=== PATIENT | female | born 1980 ===

== ENCOUNTER 2016-10-24 10:25 | Emergency (ER) | payer OTHER ==
[2016-10-24 11:03] LABS: BASO # 0.1 K/uL (0.0-0.2); BASO % 0.7 % (0.0-2.0); EOS # 0.3 K/uL (0.0-0.7); EOS % 2.5 % (0.0-4.0); HEMATOCRIT 33.3 % (34.0-47.0); LYMPH # 1.9 K/uL (1.0-4.3); LYMPH % 18.5 % (20.0-40.0); MEAN CORPUSCULAR HEMOGLOBIN 31.1 pg (27.0-31.0); MEAN CORPUSCULAR HGB CONC 33.8 g/dL (33.0-37.0); MEAN PLATELET VOLUME 8.6 fL (7.2-11.7); MONO # 0.6 K/uL (0.0-0.8); MONO % 5.9 % (0.0-10.0); RED CELL DISTRIBUTION WIDTH 14.7 % (11.5-14.5); WHITE BLOOD COUNT 10.3 K/uL (4.8-10.8)
[2016-10-24 11:09] LABS: MEAN CELL VOLUME 91.9 fL (81.0-99.0)
[2016-10-24 11:12] LABS: RBC URINE < 1 /hpf (0-3); URINE BACTERIA OCC (<OCC); URINE BILIRUBIN NEGATIVE (NEGATIVE); URINE BLOOD NEGATIVE (NEGATIVE); URINE COLOR Straw (YELLOW); URINE GLUCOSE (UA) NORMAL (Normal); URINE KETONE NEGATIVE (NEGATIVE); URINE LEUKOCYTE ESTERASE 1+ Leu/uL (Negative); URINE PROTEIN NEGATIVE (NEGATIVE); URINE UROBILINOGEN NORMAL mg/dL (0.2-1.0); WBC URINE 2 /hpf (0-5)
[2016-10-24 11:15] LABS: CHLORIDE 100 mmol/L (98-107); POTASSIUM 4.2 mmol/L (3.6-5.2); SODIUM 133 mmol/L (132-148)
[2016-10-24 11:17] LABS: AST/SGOT 16 U/L (14-36); BILIRUBIN,TOTAL 0.5 mg/dL (0.2-1.3); CARBON DIOXIDE 25 mmol/L (22-30); GFR AFRICAN-AMERICAN > 60; INR 0.8; TOTAL PROTEIN 7.3 g/dL (6.3-8.3)
[2016-10-24 11:18] LABS: ALKALINE PHOSPHATASE 109 U/L (38-126); ALT/SGPT 16 U/L (9-52); BLOOD UREA NITROGEN 9 mg/dL (7-17); CALCIUM 8.8 mg/dl (8.6-10.4); GLUCOSE,RANDOM 81 mg/dL (65-105); MAGNESIUM 1.8 mg/dL (1.6-2.3); URIC ACID 5.9 mg/dL (2.2-7.5)
--- NOTE | 2016-10-24 11:30 | OBHP ---
Datetime: 10/24/2016 11:28 Admit Comment, IP Provider: pt was seen at bed side. feels ok, no hedache blury vision. pih work up neg bp nor plan dc home cont methyldopa preeclamptic s/s given f/iu on 10/31 Contraction Comments Provider: none Vital Signs Provider: Within Normal Limits Datetime: 10/24/2016 10:33 IP Adm Impression: No Active Labor IP Admit Plan: Observation/Evaluation Pelvic Type - PN: Adequate Extremities - PN: Normal Abdomen - PN: Normal Back - PN: Normal Breast - PN: Normal Lungs - PN: Normal Heart - PN: Normal Thyroid - PN: Normal Neurologic - PN: Normal HEENT - PN: Normal General - PN: Normal FHR - Baseline A Provider: 150 Comments, ACOG Physical Exam: patient appears in no acute distress BP reading now 133/[address] Fundal heigh 1 finger breadth bellow the umbillicus Gestation - Est Wks by US: 21.5 EGA AdmitDate IP: 21.5 IP Chief Complaint: Signs/Symptoms Gestational HTN NICHD Variability Prov Fetus A: Moderate 6-25bpm Genitourinary Exam: Normal DTRs - PN: Normal
--- NOTE | 2016-10-24 11:32 | OBDCSUM ---
Datetime: 10/24/2016 11:30 Discharged to, Provider: Home Follow up at, Provider: 10/31 Follow up in weeks, Provider: clinic Discharge Comment, Provider: dc home cont methyldopa preeclamptic s/s given f/iu on 10/31 Discharge Diagnosis Prov Other: 21 week ch htn
== END 2016-10-24 11:30 | disposition home or self-care (01) ==
LOC: C.EROB 10:25
DX: O13.2 Gestational [pregnancy-induced] hypertension without significant proteinuria, second trimester (principal); Z3A.21 21 weeks gestation of pregnancy

== ENCOUNTER 2016-11-28 09:59 | Inpatient (IN) | payer OTHER ==
[2016-11-28] MEDS ORDERED: Labetalol 25mg/5ml Syringe IVP STA (10:19)
[2016-11-28] MEDS ORDERED: Betamethasone Soluspan 30 mg/5mL Inj Susp IM ONE (11:00)
[2016-11-28 11:15] LABS: HEMATOCRIT 32.6 % (34.0-47.0); MEAN CELL VOLUME 93.9 fL (81.0-99.0); MEAN CORPUSCULAR HGB CONC 33.1 g/dL (33.0-37.0); MEAN PLATELET VOLUME 9.3 fL (7.2-11.7); RED CELL DISTRIBUTION WIDTH 13.8 % (11.5-14.5); WHITE BLOOD COUNT 11.4 K/uL (4.8-10.8)
[2016-11-28 11:23] LABS: RBC URINE < 1 /hpf (0-3); URINE BACTERIA OCC (<OCC); URINE BILIRUBIN NEGATIVE (NEGATIVE); URINE BLOOD NEGATIVE (NEGATIVE); URINE COLOR Yellow (YELLOW); URINE GLUCOSE (UA) NORMAL (Normal); URINE KETONE NEGATIVE (NEGATIVE); URINE LEUKOCYTE ESTERASE 2+ Leu/uL (Negative); URINE PROTEIN 3+ mg/dL (NEGATIVE); URINE UROBILINOGEN NORMAL mg/dL (0.2-1.0); WBC URINE 24 /hpf (0-5)
[2016-11-28 11:30] LABS: POTASSIUM 4.9 mmol/L (3.6-5.2)
[2016-11-28 11:32] LABS: ALB/GLOB RATIO 0.7 (1.0-2.1); BILIRUBIN,TOTAL 0.3 mg/dL (0.2-1.3); CALCIUM 8.5 mg/dl (8.6-10.4); TOTAL PROTEIN 5.9 g/dL (6.3-8.3)
[2016-11-28 11:57] LABS: INR 0.8
--- NOTE | 2016-11-28 12:22 | CP.PCM.CON ---
<Connor RAMIREZKath Selwyn - Last Filed: 11/28/16 12:26> History of Present Illness - History of Present Illness History of Present Illness: Patient is a 36 year old female at 26.5 weeks gestation, EDC 03/01/17, who presents to the L&D unit after being sent by clinic for evaluation of HTN and preeclamptic workup. Patient had BP of 200/105 in the clinic today. Patient has a history of gestational HTN. Patient states she had gestational HTN with her prior two pregnancies and that it resolved after delivery. Patient states that in her prior pregnancies she did not require medication for the HTN but that she has been on methyldopa 500mg TID since her OB-ED visit in 10/24/16. Per clinic documentation, patient has had elevated BP throughout the , with a BP reading of 150/100 on 08/08/16. Patient was also previously on chlorthalidone for HTN management. Patient denies complaints of headaches, change to vision, dizziness, weakness, nausea, vomiting, abdominal pain, shortness of breath. Patient admits to dysuria for two days. Patient also admits to leg swelling that began on Saturday, 11/26. Medicine team consulted for HTN. 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 PMHx: gestational HTN PSHx: appendectomy, cholecystectomy, partial left nephrectomy due to nephrolithiasis, section FamHx: denies history of HTN, dibetes, cancer SocialHx: denies drug, alcohol, tobacco use Review of Systems - Constitutional Constitutional: absent: Chills, Fever, Weakness - EENT Eyes: absent: Blurred Vision, Change in Vision Nose/Mouth/Throat: absent: Sore Throat - Cardiovascular Cardiovascular: absent: Chest Pain - Respiratory Respiratory: absent: Cough, Dyspnea - Gastrointestinal Gastrointestinal: absent: Abdominal Pain, Nausea, Vomiting - Genitourinary Genitourinary: Difficulty Urinating, Dysuria - Musculoskeletal Additional comments: leg swelling - Integumentary Integumentary: absent: Dry Skin, Rash - Neurological Neurological: absent: Confusion, Dizziness, Weakness - Hematologic/Lymphatic Hematologic: absent: Easy Bleeding, Easy Bruising Past Patient History - Past Medical History & Family History Past Medical History?: Yes - Past Social History Smoking Status: Never Smoked - RENAL Hx Chronic Kidney Disease: No - MUSCULOSKELETAL/RHEUMATOLOGICAL Hx Falls: No - GASTROINTESTINAL Hx Gastrointestinal Disorders: Yes Hx Gall Bladder Disease: Yes - GENITOURINARY/GYNECOLOGICAL Hx Genitourinary Disorders: Yes Other/Comment: Hx of C -section x2. Hx of cholecystectomy, appendectomy. H/O KIDNEY STONES - SURGICAL HISTORY Hx Surgeries: Yes Hx Appendectomy: Yes Hx Section: Yes (2007, 2014) Hx Cholecystectomy: Yes Other/Comment: EXC.ABDOMINAL WALL MASS - ANESTHESIA Hx Anesthesia: Yes Hx Anesthesia Reactions: No Hx Malignant Hyperthermia: No Meds Allergies/Adverse Reactions: Allergies Allergy/AdvReac Type Severity Reaction Status Date / Time No Known Allergies Allergy Verified 11/10/15 10:06 - Medications Medications: Current Medications Nifedipine (Procardia) 10 mg PO BID LETY Last Admin: 11/28/16 12:18 Dose: 10 mg Physical Exam - Constitutional Appears: Non-toxic, No Acute Distress - Head Exam Head Exam: ATRAUMATIC, NORMOCEPHALIC - Eye Exam Eye Exam: EOMI - ENT Exam ENT Exam: Mucous Membranes Moist - Respiratory Exam Respiratory Exam: Clear to Auscultation Bilateral, NORMAL BREATHING PATTERN. absent: Rales, Rhonchi, Wheezes - Cardiovascular Exam Cardiovascular Exam: +S1, +S2 - GI/Abdominal Exam GI & Abdominal Exam: Normal Bowel Sounds. absent: Tenderness Additional comments: gravid - Extremities Exam Extremities exam: Positive for: pedal edema (bilateral 1+ pitting edema to mid bosch). Negative for: tenderness - Neurological Exam Neurological exam: Alert, Oriented x3 - Psychiatric Exam Psychiatric exam: Normal Affect - Skin Skin Exam: Warm Results - Labs Result Diagrams: 11/28/16 10:48 11/28/16 10:48 Labs: Laboratory Results - last 24 hr 11/28/16 11/28/16 11/28/16 10:48 10:48 10:48 WBC 11.4 H RBC 3.47 L Hgb 10.8 L Hct 32.6 L MCV 93.9 D MCH 31.0 MCHC 33.1 RDW 13.8 Plt Count 203 MPV 9.3 PT 9.3 L INR 0.8 APTT 34 Fibrinogen 276 Sodium Potassium Chloride Carbon Dioxide Anion Gap BUN Creatinine Est GFR ( Amer) Est GFR (Non-Af Amer) Random Glucose Calcium Total Bilirubin AST ALT Alkaline Phosphatase Total Protein Albumin Globulin Albumin/Globulin Ratio Urine Color Yellow Urine Clarity Clear Urine pH 7.0 Ur Specific [place] 1.008 Urine Protein 3+ H Urine Glucose (UA) Normal Urine Ketones Negative Urine Blood Negative Urine Nitrate Negative Urine Bilirubin Negative Urine Urobilinogen Normal Ur Leukocyte Esterase 2+ H Urine WBC (Auto) 24 H Urine RBC (Auto) < 1 Ur Squamous Epith Cells 3 Urine Bacteria Occ H Blood Type 11/28/16 11/28/16 10:48 10:48 WBC RBC Hgb Hct MCV MCH MCHC RDW Plt Count MPV PT INR APTT Fibrinogen Sodium 132 Potassium 4.9 Chloride 105 Carbon Dioxide 19 L Anion Gap 13 BUN 22 H Creatinine 1.3 H Est GFR ( Amer) 55 Est GFR (Non-Af Amer) 46 Random Glucose 66 Calcium 8.5 L Total Bilirubin 0.3 AST 26 ALT 26 Alkaline Phosphatase 135 H D Total Protein 5.9 L Albumin 2.5 L D Globulin 3.4 Albumin/Globulin Ratio 0.7 L Urine Color Urine Clarity Urine pH Ur Specific [place] Urine Protein Urine Glucose (UA) Urine Ketones Urine Blood Urine Nitrate Urine Bilirubin Urine Urobilinogen Ur Leukocyte Esterase Urine WBC (Auto) Urine RBC (Auto) Ur Squamous Epith Cells Urine Bacteria Blood Type O NEGATIVE Assessment & Plan - Assessment and Plan (Free Text) Assessment: Gestational HTN r/o preeclampsia liver enzymes grossly normal, mild elevation alk phos 3+ protein in urine patient given hydralazine 10mg IVP x 2, celestone with reduction in BP from 193/ 105 down to 119/70, now back up to 144/92 Nifedipine 10mg BID ordered per OBGYN service Agree with nifedipine 10mg BID further pre-eclamptic workup per OBGYN team We will continue to follow patient's blood pressure and may consider adding on PO hydralazine if blood pressure begins to increase again, thank you for allowing us to participate in your patient's care <Rudy Georeg H - Last Filed: 11/28/16 16:31> Meds - Medications Medications: Current Medications Nifedipine (Procardia) 10 mg PO BID LETY Last Admin: 11/28/16 12:18 Dose: 10 mg Results - Labs Result Diagrams: 11/28/16 10:48 11/28/16 10:48 Labs: Laboratory Results - last 24 hr 11/28/16 12:37 POC Glucose (mg/dL) 99 Attending/Attestation - Attestation I have personally seen and examined this patient.: Yes I have fully participated in the care of the patient.: Yes I have reviewed all pertinent clinical information: Yes Notes (Text): 11/28/16 16:28 Medical attending: Patient was seen and examined by me, agrees the above note by medical technician assistant. Medicine has been consulate due to elevated blood pressure. When the patient first came in she had a systolic BP of 200. And before we came she already got doses of IV hydralazine and then started on Procardia 10 mg to be given twice a day. On exam the patient is not under any acute distress at all. She does of note have some lower extremity edema +1. By the time we saw her the systolic blood pressure was better 130 on the machine we discussed the potential of adding on additional blood pressure medication however she had just received the Procardia it seemed like it was doing okay Later in the day I called down to labor and delivery again and her systolic blood pressures were in the 110s so at this time continue to monitor the patient if need be we could always add on medication such as hydralazine by mouth Platelet count was okay, LFTs were okay. This being said, on the UA she does have a lot of protein +3 Thank you very much, Rudy George
--- NOTE | 2016-11-28 12:44 | OBADHP ---
Datetime: 11/28/2016 12:36 Admit Comment, IP Provider: at 26+weeks send from clinic for bp 200/105. pt is ch htn and takin g methyldopa.pt took her meds today. no hedache or blurry vision.,no ctxs, vb, lof,+fm. obhx 2 x c/s pmh ch htn all nkda psh c/s soch denies a/p at 26+weeks uncontrolled htn admit to l_d iv hydrazine 10 mg x 2 given pih work up betamethasone im 24 urine pr Medicine consult called for uncontroled htn ob sono for bpp cont payton and efm angel monitoring cont close observation Pelvic Type - PN: Adequate Extremities - PN: Normal Abdomen - PN: Normal Back - PN: Normal Breast - PN: Not Done Lungs - PN: Normal Heart - PN: Normal Thyroid - PN: Not Done Neurologic - PN: Normal HEENT - PN: Normal General - PN: Normal FHR - Baseline A Provider: 130 Contraction Comments Provider: none Comments, ACOG Physical Exam: gravid,non tender ext no edema,no calf ten chest cta bl cvs rrr s1s2 IP Hx Assessment: The History has been Reviewed and is Current Vital Signs Provider: Reviewed IP Chief Complaint: Signs/Symptoms Gestational HTN NICHD Variability Prov Fetus A: Moderate 6-25bpm NICHD Decel Fetus A IP Provider: None Genitourinary Exam: Normal DTRs - PN: Normal EGA AdmitDate IP: 26.5 IP Adm Impression: , intrauterine IP Admit Plan: Admit to unit Datetime: 10/24/2016 11:28 IP Chief Complaint Other: high bp Datetime: 10/24/2016 10:33 Gestation - Est Wks by US: 21.5
--- NOTE | 2016-11-28 14:47 | US ---
PROCEDURE: OB Pelvic Ultrasound HISTORY: 26 weeks/ch hypertension COMPARISON: None available. FINDINGS: UTERUS: Gestational sac: Single intrauterine fetus in variable presentation. Heart rate: 140 bpm. BPD: 6.0 cm corresponds to 24 weeks and 4 days of gestational age. HC: 22.9 cm corresponds to 25 weeks and 0 days of gestational age. AC: 19.85 cm corresponds to 24 weeks and 4 days of gestational age. FL: 4.89 cm corresponds to 26 weeks and 3 days of gestational age. age (Ultrasound estimated): 25 weeks and 1 day Sanjana-gestational hemorrhage: None. Date of delivery (Ultrasound estimated) : 03/12/2017 Placenta is anterior. Amniotic fluid is adequate. On this limited examination, note is made of prominence of bilateral renal collecting system. CERVIX: Long and closed. No cervical abnormality seen. FREE FLUID: None. OTHER FINDINGS: None. IMPRESSION: Single live intrauterine fetus in variable presentation and mean gestational age of 25 weeks and 1 day. Placenta is at anterior and amniotic fluid is adequate. Of note is prominent bilateral renal collecting systems. Clinical follow-up is advised and level 2 ultrasound is recommended for further evaluation. Estimated date of delivery by ultrasound is 03/12/2027.
[2016-11-29 06:44] LABS: HEMATOCRIT 32.1 % (34.0-47.0); MEAN CELL VOLUME 94.5 fL (81.0-99.0); MEAN CORPUSCULAR HGB CONC 32.8 g/dL (33.0-37.0); MEAN PLATELET VOLUME 9.4 fL (7.2-11.7); RED CELL DISTRIBUTION WIDTH 13.7 % (11.5-14.5); WHITE BLOOD COUNT 13.4 K/uL (4.8-10.8)
[2016-11-29 06:52] LABS: POTASSIUM 5.2 mmol/L (3.6-5.2)
[2016-11-29 06:53] LABS: ALB/GLOB RATIO 0.9 (1.0-2.1); TOTAL PROTEIN 5.3 g/dL (6.3-8.3)
[2016-11-29 06:54] LABS: BILIRUBIN,DIRECT 0.3 mg/dL (0.0-0.4); BILIRUBIN,TOTAL 0.4 mg/dL (0.2-1.3); INR 0.9; URIC ACID 8.8 mg/dL (2.2-7.5)
[2016-11-29 06:55] LABS: CALCIUM 8.2 mg/dl (8.6-10.4)
--- NOTE | 2016-11-29 09:48 | CP.PCM.PN ---
<Kath Ryan DO - Last Filed: 11/29/16 09:45> Subjective - Date & Time of Evaluation Date of Evaluation: 11/29/16 Time of Evaluation: 07:35 - Subjective Subjective: PGY1 Progress note for Dr. George Patient seen and examined. Patient states she feels well, denies headache, dizziness, nausea. Patient complains of increased leg swelling. Objective - Medications Medications: Current Medications Nifedipine (Procardia) 10 mg PO BID [facility] Last Admin: 11/29/16 09:40 Dose: 10 mg - Labs Labs: 11/29/16 06:23 11/29/16 06:23 PT 9.5 SECONDS (9.7-12.2) L 11/29/16 06:23 INR 0.9 11/29/16 06:23 APTT 25 SECONDS (21-34) D 11/29/16 06:23 - Constitutional Appears: Non-toxic, No Acute Distress - Head Exam Head Exam: ATRAUMATIC, NORMOCEPHALIC - Eye Exam Eye Exam: EOMI - ENT Exam ENT Exam: Mucous Membranes Moist - Respiratory Exam Respiratory Exam: Clear to Ausculation Bilateral, NORMAL BREATHING PATTERN - Cardiovascular Exam Cardiovascular Exam: +S1, +S2 - GI/Abdominal Exam GI & Abdominal Exam: Soft Additional comments: gravid - Extremities Exam Extremities Exam: Pedal Edema (bilateral 1+ pitting edema to level of the knee) . absent: Calf Tenderness - Neurological Exam Neurological Exam: Alert, Awake - Psychiatric Exam Psychiatric exam: Normal Affect - Skin Skin Exam: Dry, Warm Assessment and Plan - Assessment and Plan (Free Text) Assessment: Gestational HTN Continue nifedipine 10mg PO BID continue pre-eclamptic workup per OBGYN team blood pressure appears well-controlled on nifedipine, AM BP reading 124/76 patient to follow up in the clinic with Dr. Richey medicine team will sign off, please re-consult as necessary <Rudy George - Last Filed: 11/29/16 12:57> Objective - Medications Medications: Current Medications Nifedipine (Procardia) 10 mg PO BID [facility] Last Admin: 11/29/16 09:40 Dose: 10 mg - Labs Labs: 11/29/16 06:23 11/29/16 06:23 PT 9.5 SECONDS (9.7-12.2) L 11/29/16 06:23 INR 0.9 11/29/16 06:23 APTT 25 SECONDS (21-34) D 11/29/16 06:23 Attending/Attestation - Attestation I have personally seen and examined this patient.: Yes I have fully participated in the care of the patient.: Yes I have reviewed all pertinent clinical information, including history, physical exam and plan: Yes Notes (Text): Medical attending: Patient was seen and examined by me, agrees the above note by medical records director. We reviewed the patient's blood pressure readings today and they look okay she is currently on Procardia. Twice a day. She says that she's not in any pain right now, she denied having headaches, denied having vision difficulties. Per review of the blood work her LFTs are not elevated, her platelet count stable and she is not anemic. On exam as documented above the resident note she does have some lower extremity edema. It's nonpitting edema Set this continue with the Procardia twice a day Thank you very much, Rudy George
[2016-11-29] MEDS ORDERED: Betamethasone Soluspan 30 mg/5mL Inj Susp IM ONE (11:15)
--- NOTE | 2016-11-29 15:53 | OBPN ---
Datetime: 11/29/2016 12:38 IP Progress Plan Other: Anticipate discharge home 11/29/16 IP Progress Impression: Gest. HTN/PreEclampsia/Eclampsia IP Progress Plan: Continue present management Contraction Comments Provider: none FHR - Baseline A Provider: 155 Gestation - Est Wks by US: 26w 6d IP Progress Note Comment: Patient received in bed, LDR#1 - talking on the phone; in NAD. Remebers wr iter from delivery 2014. (+) AFM; denies headaches, BV, epigastric or RUQ pain Lungs: CTA cari Cardiac: RRR, normal S1, S2 Abdomen: Obese. Gravid. Nontender in all quadrants. Healed Pfannenstiel scar Labs from this morning: noted for mild hyponatremia, 128; uric acid 8.2. Hgb 10.5; plt 188. U/A noted for 2+ leuk esterase, WBC 24; protein 3+ Extremities: trace bilateral lower extremity edema DTR: 2(+) Assessment: HD#1 36 y.o. P2, 26w 5d, uncontrolled chronic HTN, with proteinuria; now on procardia 10 mg p.o. BID with good response. 24 hour urine collection in progress. Patient also S/P celestone x 2 doses (this explains mild increase in WBC noted today). Patient has no other stigmata of superimpo sed pre-eclampsia. Patient is a previous C/S x 2; for elective repeat at 38-39 weeks, ideally. Patie nt desires permanent sterilization. Patient has beeen seen by General Medicine: note from today with assessment and recommendation reviewed and appreciated. FHR tracing appropriate for gestational age. Patient is clinically stable. Plan: 1) Complete 24 hour urine colleciton 2) Possible discharge home today Addendum: 1543 hours 24 hour urine collection completed BPs remain wnl. FHR tracing noted as per 1510 hours: continual monitoring noted - no recurrence Assessment: HD#2 36 yo P2, 26w 6d, prev C/S, chr HTN admitted for BP control - now on procardia wi th good response. U/A noted. Renal ultrasound from 08/03 and 08/31 noted for right renal calculus. In l ight of this, leuk esterase on admission 2+ with elevated WBC - will treat. Also, anemic; will start supplementation. Patient has been advised of all and agrees. Patient is clinically stable. Plan: 1) discharge home 2) Procardia 10 mg po BID 3) Keflex 500 mg p.o. TID x 7 days 4) Ziyad-Sequels (100-150) 1 tab po QD 5) Continue vitamins 1 tab po QD 6) See Dr. Richey, [facility] 12/05/16 7) Reviewed S/S pre-eclampsia 8) Keep ultrasound appointment, 12/11/16 Vital Signs Provider: Reviewed; Within Normal Limits Vital Signs Provider Details: Since accpeting patient: BP range 111-134/69-76 Dilatation, Provider: deferred Datetime: 11/28/2016 12:36 NICHD Variability Prov Fetus A: Moderate 6-25bpm NICHD Decel Fetus A IP Provider: None
--- NOTE | 2016-11-29 15:55 | OBDCSUM ---
Datetime: 11/29/2016 15:39 Discharged to, Provider: Home Follow up at, Provider: [facility] Disch Instr Activity: Normal activity; May be up to bathroom; May be up for meals; May Shower Disch Instr Diet: Restricted, specify Discharge Diet restrict Prov: Low sodium Follow up in weeks, Provider: esther 12/05/16 Disch Referrals: None Discharge Diagnosis Prov Other: - undelivered Advanced maternal age Chronic hypertension Proteinuria Anemia UTI
== END 2016-11-29 17:00 | disposition home or self-care (01) | DRG 886 ==
LOC: C.EROB 09:59 → C.4D 12:30
PROVIDERS: ADMIT Obstetrics & Gynecology; ATTEND Obstetrics & Gynecology
DX: O14.92 Unspecified pre-eclampsia, second trimester (principal); E87.1 Hypo-osmolality and hyponatremia; O23.42 Unspecified infection of urinary tract in pregnancy, second trimester; O99.012 Anemia complicating pregnancy, second trimester; O09.522 Supervision of elderly multigravida, second trimester; Z90.49 Acquired absence of other specified parts of digestive tract; Z87.442 Personal history of urinary calculi; Z3A.26 26 weeks gestation of pregnancy

== ENCOUNTER 2016-12-02 03:13 | Observation (INO) | payer OTHER ==
[2016-12-02 03:29] VITALS: BMI 32.4
[2016-12-02] MEDS ORDERED: Lactated Ringer's 1,000 ML IV SCH (03:30)
[2016-12-02] MEDS ORDERED: HYDROmorphone 1 mg/ml ISec IVP ONE (03:45)
[2016-12-02 04:11] LABS: HEMATOCRIT 37.6 % (34.0-47.0); MEAN CORPUSCULAR HEMOGLOBIN 31.1 pg (27.0-31.0); MEAN CORPUSCULAR HGB CONC 32.7 g/dL (33.0-37.0); MEAN PLATELET VOLUME 8.8 fL (7.2-11.7); RED CELL DISTRIBUTION WIDTH 13.9 % (11.5-14.5); WHITE BLOOD COUNT 15.1 K/uL (4.8-10.8)
[2016-12-02 04:21] LABS: POTASSIUM 4.4 mmol/L (3.6-5.2)
[2016-12-02 04:23] LABS: RBC URINE 2 /hpf (0-3); URINE BILIRUBIN NEGATIVE (NEGATIVE); URINE BLOOD NEGATIVE (NEGATIVE); URINE COLOR Yellow (YELLOW); URINE GLUCOSE (UA) NORMAL (Normal); URINE KETONE NEGATIVE (NEGATIVE); URINE LEUKOCYTE ESTERASE 2+ Leu/uL (Negative); URINE PROTEIN 3+ mg/dL (NEGATIVE); URINE UROBILINOGEN NORMAL mg/dL (0.2-1.0); WBC URINE 47 /hpf (0-5)
[2016-12-02 04:23] LABS: ALB/GLOB RATIO 0.8 (1.0-2.1); BILIRUBIN,TOTAL 0.6 mg/dL (0.2-1.3); TOTAL PROTEIN 6.1 g/dL (6.3-8.3)
[2016-12-02 04:24] LABS: CALCIUM 8.2 mg/dl (8.6-10.4)
[2016-12-02 04:26] LABS: INR 0.8
--- NOTE | 2016-12-02 10:22 | US ---
PROCEDURE: Ultrasound of the Kidneys HISTORY: cari flank pain; h/o renal calculi; vomiting COMPARISON: 09/10/2016. TECHNIQUE: Sonogram of the kidneys. FINDINGS: RIGHT KIDNEY: Measures: 14.2 cm. Enlarged. Again seen are echogenic medullary pyramids. There are nonobstructing stones in the interpolar region, the largest measures 1.1 cm. No solid mass lesion or hydronephrosis visualized. There is a 1.3 cm simple cyst in the lower pole. LEFT KIDNEY: Measures: 6.2 cm. HALINA small in size. Again seen are echogenic medullary pyramids. There are multiple nonobstructing stones, the largest in the upper pole measures 6 mm. No solid mass lesion or hydronephrosis visualized. OTHER FINDINGS: None. IMPRESSION: 1. Bilateral nonobstructing renal stones, the largest in the interpolar region of the right kidney measures 1.1 cm. 2. Nephrocalcinosis. 3. Atrophic left kidney and compensatory hypertrophy of the right kidney.
--- NOTE | 2016-12-02 11:26 | OBHP ---
Datetime: 12/02/2016 02:40 IP Adm Impression: , intrauterine IP Chief Complaint Other: vomiting, bilateral flank pain IP Adm Impression Other: Chr HTN; prev C/S x 2; h/o renal calculi IP Admit Plan: Observation/Evaluation IP Admit Plan Other: Transfer to [facility] Admit Comment, IP Provider: 36 y.o. , LMP 05/25/16, ANABELLA 03/01/17, EGA 27w 2d, sudden onset cari ateral low back/flank pain 0040 hours, pain scale 10/10. Pain described as stabbing/ crushing and sim ilar to that she experienced in 2016 when diagnosed and treated for kidney stones. On way to hospital , vomited x 1 and again at approx 0210 hours on Maternity Floor. (+) FM; denies LOF, VB, Ctx. Prenat al care: [facility], Chr HTN; AMA; previous C/S x 2. 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 Denies h/o STIs PMH: chr HTN PSH: C/S x 2; age 13, appendectomy; age 14, cholecystectomy NKDA Meds: PNV, Procardia 10 mg po BID; Keflex 500 mg po TID, iron - QD Soc Hx: denies tobacco, illicit drug or EtOH use. x 3 yrs, together 6 yrs. Fam Hx: Mother alive 73 y.o. Father alive 77 - both, no med issues. No known fam h/o cancer P.E.: as above. WD in pain. Awake, alert, oriented to time, person and place. Pleasant and coopera tive Assessment: 36 yo P2, 27w 2d, h/o renal calculi, with right CVA tenderness; currently on p.o. anti biotics for early UTI in the setting of prevously diagnosed small, non obstructing right renal calcul us, 07/2016. Episode of vomiting - noted; may be due to p.o. antibiotics. Epigastric pain - most likel y due to use of accessory muscles with vomiting. - will evaluate for superimposed pre-eclampsia. S/P admission 11/28 for BP control and evaluation of super-imposed pre-eclampsia. FHR tracing appropriate for gestational age. Patient is clinically stable. Plan: 1) Observation status 2) IVFs 3) NPO 4) Zofran 5) Reglan 6) Dilaudid 7) Renal ultrasound in am 8) EFM q 2 hours 9) Admission labs, including pre-eclamptic labs and lipase Addendum: 1041 hours (history and discussion of care facilitated by Cory Adamson, who serves as tra nslator) Patient received at approximately 0945 hours, just returned from ultrasound: reclining in bed, in good spirits. Denies nausea, vomiting, headaches, blurred vission. Reports improvement in low back an d epigastric pain. Describes burning sensation in retrosternal area. Not very hungry. (+) FM; denies LOF, VB, Ctx. Patient disclosed that she is being followed by both a clinical partner and urologist - she is unsure as to why she is seeing the former; is aware of renal calculi. VS: noted - at this time elevated BP most likely related to anxiety and pain. NB: BP had responded to dose of procardia at 0800 hours. Lungs: CTA bilaterally Back: bilateral CVA tenderness, right > left - improved Abdomen: Gravid soft, (+) epigastric tenderness - with improvement Extremities: no clubbing, cyanosis or edema DTRs: 2+ bilaterally, lower extremities, brisk Labs: on presentation, significant for LDH 3494 (11/29, 425); AST/ALT 645/508 (11/29, ); and ur ine protein 3+ (same 11/28/16). Uric acid 9.0. BUN/Cr 30/1.3. H/H 12.3/37.6 (11/29 10.5/32.1). Coagula tion profile wnl and stable. 24 hour urine collection 11/29/16 total protein 1936 mg, total volume 110 0 mL. Renal ultrasound today: Right: multiple, non obstructing stones, largest 1.1cm. Left: multiple non obstructing stones, largest 6 mm. Atrophic left kidney and compensatory hypertrophy of right kidney Assessment: 36 yo P2, 27w 2d, previous C/S x 2 for elective repeat (patient desires permanent ster ilization). Chronic HTN, S/P admission 11/28-11/29 for BP control; discharged home on procardia 10 mg po BID. Evaluation for super-imposed pre-eclampsia initiated - results as above were not known in ful l detail at time of discharge. Patient was also sent home on p.o. antibiotics for empiric treatment o f bacteriuria in setting of known renal calculi (07/2016). Patient received course of celestone. Patient now with elevated LFTs, and proteinuria, and labile BP - after presenting with bilateral f lank and epigastric pain. Case discussed with M, Dr. Prabhakar who recommends and accepts the transfer of patient to [facility] for further management. This was discussed with patient: s he was/is understandably anxious (resulting in the increase of BP just noted). Patient's questions an d concerns were addressed and answered to the best of my ability. It was also explained to patient, p ossiblility of stent placement may be a part of her continuing treatment. Patient expressed an unders tanding and agrees to the transfer. Plan: 1) Transfer to [facility] 2) Procardia 10 mg p.o. x 1 dose STAT Pelvic Type - PN: Not Done Extremities - PN: Normal Abdomen - PN: Abnormal Back - PN: Abnormal Breast - PN: Not Done Lungs - PN: Normal Thyroid - PN: Not Done Neurologic - PN: Normal HEENT - PN: Normal General - PN: Normal FHR - Baseline A Provider: 155 Contraction Comments Provider: none Comments, ACOG Physical Exam: Skin: warm, dry, pale Back: bilateral CVA tenderness, right >> left Abdomen: Soft. Non distended. Healed RUQ, RLQ, epigastric, and laparoscopic scars. (+) epigastric pain, just superior to fundus of uterus. All other systems reviewed - as per HPI Gestation - Est Wks by US: 27w 2d EGA AdmitDate IP: 27.2 Vital Signs Provider: Reviewed Vital Signs Provider Details: Most likely related to pain. Low normal pulse - as noted on previous a dmission IP Chief Complaint: Other NICHD Decel Fetus A IP Provider: None Genitourinary Exam: Not Done DTRs - PN: Not Done Datetime: 11/29/2016 12:38 Dilatation, Provider: deferred
--- NOTE | 2016-12-02 11:33 | OBDCSUM ---
Datetime: 12/02/2016 11:26 Discharged to, Provider: Other Follow up at, Provider: to be determined Disch Instr Activity: Normal activity Disch Instr Diet: Restricted, specify Discharge Diet restrict Prov: Low sodium Discharge Time: 12/02/2016 11:27 Follow up in weeks, Provider: to be determined Disch Referrals: None Contraception discussed, Prov: Yes Discharge Comment, Provider: Patient transferred to [facility] via ambulance Discharge Diagnosis Prov Other: undelivered Chronic hypertension Elevated liver enzymes Proteinuria Previous section Advanced maternal age Desires permanent sterilization Bilateral renal calculi
== END 2016-12-02 12:30 | disposition short-term general hospital (02) ==
LOC: C.EROB 03:13 → C.4D 03:29
PROVIDERS: ADMIT Obstetrics & Gynecology; ATTEND Obstetrics & Gynecology
DX: O11.2 Pre-existing hypertension with pre-eclampsia, second trimester (principal); O09.522 Supervision of elderly multigravida, second trimester; O23.42 Unspecified infection of urinary tract in pregnancy, second trimester; O26.832 Pregnancy related renal disease, second trimester; N20.0 Calculus of kidney; Z87.442 Personal history of urinary calculi; O34.219 Maternal care for unspecified type scar from previous cesarean delivery; Z3A.27 27 weeks gestation of pregnancy
CPT/HCPCS: 76770; 80053; 81001; 83615; 83690; 84550; 85027; 85384; 85610; 85730; 86850; 86900; 99284; G0378; J1170; J2405; J2765; J7120

== ENCOUNTER 2016-12-14 05:29 | Inpatient (IN) | payer OTHER ==
--- NOTE | 2016-12-14 06:14 | C.PDOC ---
History Of Present Illness 36 yo female c/o wound opening. Pt notes that she woke up this morning feeling gassy causing her to vomit. The vomiting caused her incision to open. Pt notes there was bleeding and odor from the area. States she was discharged from [facility] 12/07/16 and followed up with the OB clinic yesterday. Pt was given abx yesterday because the wound was red. Denies current nausea. No abdominal pain. No chest pain. Time Seen by Provider: 12/14/16 05:53 Chief Complaint (Nursing): Wound Check History Per: Patient, Family, Certified Control Systems Technician History/Exam Limitations: no limitations Onset/Duration Of Symptoms: Mins Past Medical History Reviewed: Historical Data, Nursing Documentation, Vital Signs Vital Signs: Last Vital Signs Temp 98.6 F 12/14/16 05:43 Pulse 90 12/14/16 05:43 Resp 14 12/14/16 05:43 BP 104/99 H 12/14/16 05:43 Pulse Ox 98 12/14/16 06:40 - Medical History PMH: Gall Bladder Disease, Kidney Stones Surgical History: Appendectomy, Cholecystectomy - [facility] Procedures EXCISION OF ABDOMINAL WALL, OPEN APPROACH (11/10/15) EXCISION OF LEFT KIDNEY, PERCUTANEOUS ENDOSCOPIC APPROACH (04/16/16) LOW CERVICAL (10/29/14) OTH LYSIS-PERITONEAL ADHES (10/29/14) REPAIR ABDOMINAL WALL, OPEN APPROACH (11/10/15) Family History: States: Unknown Family Hx - Social History Hx Tobacco Use: No Hx Alcohol Use: No Hx Substance Use: No - Immunization History Hx Tetanus Toxoid Vaccination: Yes Hx Influenza Vaccination: Yes Hx Pneumococcal Vaccination: No Review Of Systems Constitutional: Negative for: Fever, Chills Gastrointestinal: Positive for: Vomiting. Negative for: Diarrhea Genitourinary: Negative for: Vaginal Discharge Musculoskeletal: Negative for: Back Pain Physical Exam - Physical Exam Appears: Well, Non-toxic, No Acute Distress Skin: Warm, Dry, Other (2 cm open wound on left side of incision with swelling and mild erythema; no active discharge or bleeding) Head: Atraumatic, Normacephalic Eye(s): bilateral: Normal Inspection, EOMI Nose: Normal Oral Mucosa: Moist Throat: Normal Neck: Normal, Normal ROM, Supple Chest: Symmetrical Cardiovascular: Rhythm Regular Respiratory: Normal Breath Sounds Gastrointestinal/Abdominal: Soft, Tenderness (mild tenderness over the incision ), Other (multiple healed scars) Back: Normal Inspection Extremity: Normal ROM Neurological/Psych: Oriented x3, Normal Speech ED Course And Treatment O2 Sat by Pulse Oximetry: 98 (room air) Progress Note: Case was discussed and pt evaluated by Dr Naik, instructs change in Flagyl and Augmentin. Upon re-evalaution, pt notes she has had a fever for 3 days- tmax 103 yesterday. Also notes left sided lower back pain. Worse with movement. No trauma. No incontinence. Labs ordered. Case endorsed to REED Carroll upon labs and re-evaluation. Disposition - Disposition Referrals: [facility] [Outside] Disposition: HOME/ ROUTINE Disposition Time: 06:52 Condition: STABLE Additional Instructions: Stop the Bactrim. Start the new antibiotics. Follow up with OBGYN clinic in 2-3 days. Return to ER if symptoms persist or worsen including fever or abdominal pain. Detener el Bactrim. Comience los nuevos antibiticos. Seguimiento con OBGYN cl donnell en 2-3 huynh. Regrese a ER si los sntomas persisten o empeoran incluyendo fiebre o dolor abdominal. Prescriptions: Amoxicillin/Clavulanate [Augmentin 875 MG-125 MG] 1 tab PO BID #14 tab Metronidazole [Flagyl] 500 mg PO BID #14 tab Instructions: Acute Wound Care (ED) Print Language: ENGLISH - Clinical Impression Clinical Impression: Wound infection following section, , Vomiting, Fever - Scribe Statement The provider has reviewed the documentation as recorded by the Scribjuan Sandhu All medical record entries made by the Ernaibjuan were at my direction and personally dictated by me. I have reviewed the chart and agree that the record accurately reflects my personal performance of the history, physical exam, medical decision making, and the department course for this patient. I have also personally directed, reviewed, and agree with the discharge instructions and disposition.
[2016-12-14] MEDS ORDERED: Amoxicillin-Clav 875-125 mg Tab PO STA (06:27)
[2016-12-14] MEDS ORDERED: Amoxicillin-Clav 875-125 mg Tab PO ONE (06:32)
[2016-12-14] MEDS ORDERED: Sodium Chloride 0.9% 1,000 ML IV ONE ×3 (06:47→10:36)
[2016-12-14] MEDS ORDERED: metroNIDAZOLE IV 500 mg/100 ml 100 ML IV SCH (07:00)
[2016-12-14 07:07] LABS: BASO # 0.1 K/uL (0.0-0.2); BASO % 0.2 % (0.0-2.0); EOS # 0.1 K/uL (0.0-0.7); EOS % 0.4 % (0.0-4.0); HEMOGLOBIN 7.3 g/dL (11.0-16.0); LYMPH % 4.8 % (20.0-40.0); MEAN CELL VOLUME 91.4 fL (81.0-99.0); MEAN CORPUSCULAR HEMOGLOBIN 30.7 pg (27.0-31.0); MEAN CORPUSCULAR HGB CONC 33.6 g/dL (33.0-37.0); MEAN PLATELET VOLUME 6.7 fL (7.2-11.7); MONO # 0.9 K/uL (0.0-0.8); MONO % 4.4 % (0.0-10.0); NEUT # 19.1 K/uL (1.8-7.0); NEUT % 90.2 % (50.0-75.0); PLATELET COUNT 276 K/uL (130-400); RBC 2.37 Mil/uL (3.80-5.20); RED CELL DISTRIBUTION WIDTH 13.8 % (11.5-14.5); WHITE BLOOD COUNT 21.2 K/uL (4.8-10.8)
[2016-12-14] MEDS ORDERED: Sodium Chloride 0.9% 1,000 ML ONE (07:17)
[2016-12-14 07:27] LABS: ALBUMIN 2.3 g/dL (3.5-5.0)
[2016-12-14 07:38] LABS: SQUAMOUS EPITHIAL 1 /hpf (0-5); URINE BACTERIA RARE (<OCC); URINE BILIRUBIN NEGATIVE (NEGATIVE); URINE BLOOD 2+ (NEGATIVE); URINE CLARITY Hazy (Clear); URINE COLOR Yellow (YELLOW); URINE GLUCOSE (UA) NORMAL (Normal); URINE LEUKOCYTE ESTERASE 2+ Leu/uL (Negative); URINE NITRATE NEGATIVE (NEGATIVE); URINE PROTEIN 2+ mg/dL (NEGATIVE)
[2016-12-14 07:42] LABS: ALB/GLOB RATIO 0.7 (1.0-2.1)
[2016-12-14 07:50] LABS: BANDS 7 % (0-2); EOSINOPHIL 2 % (0-4); LYMPHOCYTE 2 % (20-40); MONOCYTE 4 % (0-10); NEUTROPHIL 85 % (50-75); PLATELET ESTIMATE NORMAL (NORMAL); TOTAL CELLS COUNTED 100
[2016-12-14] MEDS ORDERED: Iohexol 240 (50 ml) PO ONE (08:12)
[2016-12-14] MEDS ORDERED: Piperacillin/Tazobact 3.375 gm 100 ML IV STA (08:13)
[2016-12-14] MEDS ORDERED: Piperacillin/Tazobact 3.375 gm 100 ML IVPB ONE (08:30)
[2016-12-14] MEDS ORDERED: Iohexol 240 (50 ml) ONE (08:30)
[2016-12-14 09:24] LABS: VENOUS BLOOD GAS BASE EXCESS -5.6 mmol/L (0.0-2.0); VENOUS BLOOD GAS PCO2 30 mmHg (40-60); VENOUS BLOOD GAS PO2 50 mm/Hg (30-55); VENOUS BLOOD PH 7.39 (7.32-7.43)
--- NOTE | 2016-12-14 11:40 | CT ---
PROCEDURE: CT Abdomen and Pelvis without intravenous contrast HISTORY: abd pain, fever, leukocytosis. Status post . COMPARISON: 11/10/2015 TECHNIQUE: Without contrast.. Contrast Dose: 0 Radiation dose: Total exam DLP = 765.89 mGy-cm. This CT exam was performed using one or more of the following dose reduction techniques: Automated exposure control, adjustment of the mA and/or kV according to patient size, and/or use of iterative reconstruction technique. FINDINGS: LOWER THORAX: Trace bilateral pleural effusion. Minimal linear scar/ atelectasis left lower lobe. LIVER: Mild hepatomegaly. The liver measures approximately 20 cm craniocaudal. No mass. No biliary dilatation. Smooth contour. GALLBLADDER AND BILE DUCTS: Status post cholecystectomy. PANCREAS: Unremarkable. No gross lesion or ductal dilatation. SPLEEN: Unremarkable. ADRENALS: Unremarkable. No mass. KIDNEYS AND URETERS: Markedly atrophic left kidney. This represents interval change from the prior examination. Small nonobstructing left renal calculi. Multiple right renal calculi, nonobstructing. Largest calculus measures approximately 11 mm although this may represent several smaller calculi. No hydronephrosis. No renal mass. No hydroureter or ureteral calculus appreciated. VASCULATURE: Unremarkable. No aortic aneurysm. BOWEL: Mild retained feces. No bowel obstruction. APPENDIX: Not positively identified. No secondary findings to suggest acute appendicitis. PERITONEUM: No ascites. There is a collection of low attenuation material as well as gas and a small amount of high attenuation material, within the rectus sheath. Evaluation is somewhat limited by the absence of intravenous contrast administration. This collection is curvilinear and difficult to measure but measures approximately 14.1 by 11.6 by 1.8 cm. Possible abscess versus postoperative hematoma. Please correlate for concern regarding an infectious collection. Very small collections are seen within the lower anterior abdominal wall consistent with surgical incision. There is a very small amount of gas seen within the few of these collections, nonspecific. Again, concerning for an infectious process. LYMPH NODES: Unremarkable. No enlarged lymph nodes. BLADDER: Unremarkable. REPRODUCTIVE: Somewhat globular uterus consistent with recent status. BONES: No acute fracture. OTHER FINDINGS: None. IMPRESSION: Curvilinear collection within the rectus sheath containing both low attenuation material and gas as well as a small amount of high attenuation material. Possible postoperative collection/ hematoma versus infected collection. Evaluation limited by the absence of intravenous contrast. Evidence of lower anterior abdominal surgical incision with multiple very small collections, several of which contain a small amount of gas. Again, the possibility of an infectious process is considered. Mild hepatomegaly. Multiple bilateral nonobstructing renal calculi. Severe left renal atrophy.
--- NOTE | 2016-12-14 13:20 | CP.PCM.HP ---
History of Present Illness - History of Present Illness History of Present Illness: 36 yr s/p c/s 12/02/16 her fcame with c/o vomiting last night and incision open up. pt states she had a fever last night.no fever now, no pain or hedache or blurry vision. pt had a c/s for severe preeclampsia and admitted in icu post delivery.pt has been following with dr jacobo in [facility] who started her on bactrium on saturday. obhx 3 x c/s(26 weeks loss) pmh htn,renal dieseaes med atenolol, labetolol psh c/s, cholecystectomy soch de and incsion erythematous, redness left side 2 cm opened and serosanguis fluid coming, fasia intact. abd soft,mild tenderness, soft ext no edema,no calf ten Ct Scan curvilenear collection near rectus sheath between low attentuation material possible hematoma/collection. severe renal atrophy Present on Admission - Present on Admission Any Indicators Present on Admission: No History of DVT/PE: No History of Uncontrolled Diabetes: No Urinary Catheter: No Decubitus Ulcer Present: No Review of Systems - Respiratory Respiratory: As Per HPI Past Patient History - Infectious Disease Hx of Infectious Diseases: None - Past Medical History & Family History Past Medical History?: Yes - Past Social History Smoking Status: Never Smoked - RENAL Hx Kidney Stones: Yes - MUSCULOSKELETAL/RHEUMATOLOGICAL Hx Falls: No - GASTROINTESTINAL Hx Gall Bladder Disease: Yes - GENITOURINARY/GYNECOLOGICAL Hx Genitourinary Disorders: Yes Other/Comment: Hx of C -section x2. Hx of cholecystectomy, appendectomy. H/O KIDNEY STONES - PSYCHIATRIC Hx Substance Use: No - SURGICAL HISTORY Hx Appendectomy: Yes Hx Cholecystectomy: Yes - ANESTHESIA Hx Anesthesia: Yes Hx Anesthesia Reactions: No Hx Malignant Hyperthermia: No Meds Home Medications: Home Medication List Medication Instructions Recorded Confirmed Type Amoxicillin/Clavulanate [Augmentin 1 tab PO BID #14 tab 12/14/16 Rx 875 MG-125 MG] Metronidazole [Flagyl] 500 mg PO BID #14 tab 12/14/16 Rx Allergies/Adverse Reactions: Allergies Allergy/AdvReac Type Severity Reaction Status Date / Time No Known Allergies Allergy Verified 12/14/16 05:48 Results - Vital Signs Recent Vital Signs: Last Vital Signs Temp 98.9 F 12/14/16 13:00 Pulse 77 12/14/16 13:00 Resp 18 12/14/16 13:00 BP 105/66 12/14/16 13:00 Pulse Ox 98 12/14/16 13:00 - Labs Result Diagrams: 12/14/16 07:04 12/14/16 07:04 Assessment & Plan - Assessment and Plan (Free Text) Assessment: 36 yr s/p c/s with post wound infection 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
[2016-12-14] MEDS ORDERED: Oxycodone/Acetaminophen 5/325 mg Tab PO PRN ×2 (13:28)
[2016-12-14] MEDS: Piperacill/Tazo 3.375gm in Dex 3.375 GM/50 ML BAG IVPB SCH ×2 (14:49→19:45)
--- NOTE | 2016-12-14 16:28 | CP.PCM.CON ---
History of Present Illness - History of Present Illness History of Present Illness: History Of Present Illness 36 yo female c/o wound opening. Pt notes that she woke up this morning feeling gassy causing her to vomit. The vomiting caused her incision to open. Pt notes there was bleeding and odor from the area. States she was discharged from [facility] 12/07/16 and followed up with the OB clinic yesterday. 36 year old female with uncontrolled HTN, and of pre-eclampsia and on 12/02/16 at [facility]. Patient was transferred to facility after finding elevated LFT, proteinuria, labile BP. ID consulted for wound infection CT shows Curvilinear collection within the rectus sheath containing both low attenuation material and gas as well as a small amount of high attenuation material. Possible postoperative collection/ hematoma versus infected collection. Multiple bilateral nonobstructing renal calculi. Severe left renal atrophy. Review of Systems - Review of Systems Systems not reviewed;Unavailable: Language Barrier - Constitutional Constitutional: As Per HPI Past Patient History - Infectious Disease Hx of Infectious Diseases: None - Past Medical History & Family History Past Medical History?: Yes - Past Social History Smoking Status: Never Smoked - CARDIAC Hx Cardiac Disorders: No - PULMONARY Hx Respiratory Disorders: No - NEUROLOGICAL Hx Neurological Disorder: No - HEENT Hx HEENT Problems: No - RENAL Hx Kidney Stones: Yes - ENDOCRINE/METABOLIC Hx Endocrine Disorders: No - INTEGUMENTARY Hx Dermatological Problems: No - MUSCULOSKELETAL/RHEUMATOLOGICAL Hx Falls: No - GASTROINTESTINAL Hx Gall Bladder Disease: Yes - GENITOURINARY/GYNECOLOGICAL Hx Genitourinary Disorders: Yes Other/Comment: Hx of C -section x2. Hx of cholecystectomy, appendectomy. H/O KIDNEY STONES - PSYCHIATRIC Hx Substance Use: No - SURGICAL HISTORY Hx Appendectomy: Yes Hx Cholecystectomy: Yes - ANESTHESIA Hx Anesthesia: Yes Hx Anesthesia Reactions: No Hx Malignant Hyperthermia: No Meds Home Medications: Home Medication List Medication Instructions Recorded Confirmed Type Amoxicillin/Clavulanate [Augmentin 1 tab PO BID #14 tab 12/14/16 Rx 875 MG-125 MG] Metronidazole [Flagyl] 500 mg PO BID #14 tab 12/14/16 Rx Allergies/Adverse Reactions: Allergies Allergy/AdvReac Type Severity Reaction Status Date / Time No Known Allergies Allergy Verified 12/14/16 05:48 - Medications Medications: Current Medications Piperacillin Sod/Tazobactam Sod (Zosyn 3.375 Gm Iv Premix) 3.375 gm in 50 mls @ 100 mls/hr IVPB Q6H [facility] Last Admin: 12/14/16 14:49 Dose: 100 mls/hr Oxycodone/Acetaminophen (Percocet 5/325 Mg Tab) 1 tab PO Q4H PRN PRN Reason: Pain, moderate (4-7) Stop: 12/17/16 13:29 Oxycodone/Acetaminophen (Percocet 5/325 Mg Tab) 2 tab PO Q6H PRN PRN Reason: Pain, severe (8-10) Stop: 12/17/16 13:29 Physical Exam - Constitutional Appears: Non-toxic, Chronically Ill - Head Exam Head Exam: NORMOCEPHALIC - Eye Exam Eye Exam: PERRL. absent: Scleral icterus - ENT Exam ENT Exam: Mucous Membranes Dry, Normal External Ear Exam - Neck Exam Neck exam: Negative for: Lymphadenopathy - Respiratory Exam Respiratory Exam: Decreased Breath Sounds, Clear to Auscultation Bilateral - Cardiovascular Exam Cardiovascular Exam: REGULAR RHYTHM, +S1, +S2 - GI/Abdominal Exam GI & Abdominal Exam: Diminished Bowel Sounds, Distended, Soft. absent: Tenderness - Rectal Exam Rectal Exam: Deferred - Exam Exam: NORMAL INSPECTION - Extremities Exam Extremities exam: Positive for: pedal pulses present. Negative for: calf tenderness, pedal edema, tenderness - Back Exam Back exam: absent: CVA tenderness (L), CVA tenderness (R) - Neurological Exam Neurological exam: Alert, CN II-XII Intact, Oriented x3, Reflexes Normal - Psychiatric Exam Psychiatric exam: Normal Mood - Skin Skin Exam: Erythema Additional comments: erythema over pelvic area / incision with drainage from wound dehissence site Results - Vital Signs Recent Vital Signs: Last Vital Signs Temp 98.9 F 12/14/16 15:49 Pulse 81 12/14/16 15:49 Resp 18 12/14/16 15:49 BP 112/72 12/14/16 15:49 Pulse Ox 96 12/14/16 15:49 - Labs Result Diagrams: 12/14/16 07:04 12/14/16 07:04 Assessment & Plan - Assessment and Plan (Free Text) Assessment: infected c section wound sepsis r/o abscess needs drainage/ debridement cont IV antibiotics / wound care
[2016-12-14] MEDS ORDERED: Tetanus/Diphtheria Toxoids 0.5 ml Syringe IM ONE (16:30)
[2016-12-14] MEDS ORDERED: Vancomycin 1 gm/NS 200 ml 1 GM/200 ML BAG IVPB ONE (17:00)
[2016-12-15] MEDS: Piperacill/Tazo 3.375gm in Dex 3.375 GM/50 ML BAG IVPB SCH ×4 (01:46→20:46)
[2016-12-15 06:34] LABS: BASO # 0.1 K/uL (0.0-0.2); BASO % 0.4 % (0.0-2.0); EOS # 0.2 K/uL (0.0-0.7); EOS % 1.4 % (0.0-4.0); HEMOGLOBIN 6.7 g/dL (11.0-16.0); LYMPH # 1.6 K/uL (1.0-4.3); LYMPH % 11.5 % (20.0-40.0); MEAN CELL VOLUME 91.3 fL (81.0-99.0); MEAN CORPUSCULAR HGB CONC 32.8 g/dL (33.0-37.0); MEAN PLATELET VOLUME 7.3 fL (7.2-11.7); MONO # 0.5 K/uL (0.0-0.8); MONO % 3.4 % (0.0-10.0); NEUT # 11.5 K/uL (1.8-7.0); NEUT % 83.3 % (50.0-75.0); RBC 2.22 Mil/uL (3.80-5.20); RED CELL DISTRIBUTION WIDTH 14.3 % (11.5-14.5); WHITE BLOOD COUNT 13.9 K/uL (4.8-10.8)
[2016-12-15 07:17] LABS: ALBUMIN 2.1 g/dL (3.5-5.0)
[2016-12-15 07:20] LABS: ALB/GLOB RATIO 0.7 (1.0-2.1)
[2016-12-15 07:21] LABS: CALCIUM 7.3 mg/dl (8.6-10.4)
[2016-12-16] MEDS: Piperacill/Tazo 3.375gm in Dex 3.375 GM/50 ML BAG IVPB SCH ×3 (01:12→13:09)
[2016-12-16 13:03] LABS: HEMOGLOBIN 8.1 g/dL (11.0-16.0)
[2016-12-16 13:07] LABS: MEAN CELL VOLUME 91.1 fL (81.0-99.0); MEAN CORPUSCULAR HEMOGLOBIN 30.4 pg (27.0-31.0); MEAN CORPUSCULAR HGB CONC 33.4 g/dL (33.0-37.0); MEAN PLATELET VOLUME 6.2 fL (7.2-11.7); RBC 2.65 Mil/uL (3.80-5.20); RED CELL DISTRIBUTION WIDTH 14.5 % (11.5-14.5)
[2016-12-16] MEDS: Vancomycin 1 gm/NS 200 ml 1 GM/200 ML BAG IVPB SCH (13:45)
--- NOTE | 2016-12-16 15:44 | CP.PCM.PN ---
Subjective - Date & Time of Evaluation Date of Evaluation: 12/16/16 Time of Evaluation: 08:00 - Subjective Subjective: less pus from incision site cultures pending cont vanco / zosyn monitor renal function if no imporovement may need debridement / vac Objective - Vital Signs/Intake and Output Vital Signs (last 24 hours): Temp Pulse Resp BP Pulse Ox 98.7 F 71 17 145/89 99 12/16/16 07:10 12/16/16 07:10 12/16/16 07:10 12/16/16 07:10 12/16/16 07:10 Intake and Output: 12/16/16 12/16/16 06:59 18:59 Intake Total 625 Balance 625 - Medications Medications: Current Medications Ferrous Sulfate (Feosol) 325 mg PO TID [facility] Last Admin: 12/16/16 13:14 Dose: 325 mg Piperacillin Sod/Tazobactam Sod (Zosyn 3.375 Gm Iv Premix) 3.375 gm in 50 mls @ 100 mls/hr IVPB Q6H [facility] Last Admin: 12/16/16 13:09 Dose: 100 mls/hr Vancomycin/Sodium Chloride (Vancocin) 1 gm in 200 mls @ 166.7 mls/hr IVPB Q24H [facility] Stop: 12/21/16 12:46 Last Admin: 12/16/16 13:45 Dose: 166.7 mls/hr Oxycodone/Acetaminophen (Percocet 5/325 Mg Tab) 1 tab PO Q4H PRN PRN Reason: Pain, moderate (4-7) Stop: 12/17/16 13:29 Oxycodone/Acetaminophen (Percocet 5/325 Mg Tab) 2 tab PO Q6H PRN PRN Reason: Pain, severe (8-10) Stop: 12/17/16 13:29 - Labs Labs: 12/16/16 13:00 12/15/16 06:20
[2016-12-16] MEDS: Meropenem 500 MG in Sodium Chloride 0.9% 100 ML IVPB SCH (17:21)
[2016-12-17] MEDS: Meropenem 500 MG in Sodium Chloride 0.9% 100 ML IVPB SCH ×3 (02:11→18:17)
--- NOTE | 2016-12-17 07:20 | CP.PCM.PN ---
Subjective - Date & Time of Evaluation Date of Evaluation: 12/16/16 Time of Evaluation: 13:10 - Subjective Subjective: 36yo female currently on admission for the treatment of wound infection from section incision. I saw Pt at her bedside. Pt reports feeling well. Denies fever or chills. Pt is ambulating and tolerating meals.Pt is on antibiotics. The wbc has trended down and HB today is 8.1g/dl Objective - Vital Signs/Intake and Output Vital Signs (last 24 hours): Temp Pulse Resp BP Pulse Ox 98.1 F 71 20 162/99 H 99 12/17/16 04:13 12/17/16 04:13 12/17/16 04:13 12/17/16 04:13 12/17/16 04:13 - Medications Medications: Current Medications Ferrous Sulfate (Feosol) 325 mg PO TID [facility] Last Admin: 12/16/16 17:06 Dose: 325 mg Vancomycin/Sodium Chloride (Vancocin) 1 gm in 200 mls @ 166.7 mls/hr IVPB Q24H [facility] Stop: 12/21/16 12:46 Last Admin: 12/16/16 13:45 Dose: 166.7 mls/hr Meropenem 500 mg/ Sodium (Chloride) 100 mls @ 100 mls/hr IVPB Q8H [facility] Last Admin: 12/17/16 02:11 Dose: 100 mls/hr Oxycodone/Acetaminophen (Percocet 5/325 Mg Tab) 1 tab PO Q4H PRN PRN Reason: Pain, moderate (4-7) Stop: 12/17/16 13:29 Oxycodone/Acetaminophen (Percocet 5/325 Mg Tab) 2 tab PO Q6H PRN PRN Reason: Pain, severe (8-10) Stop: 12/17/16 13:29 - Labs Labs: 12/16/16 13:00 12/15/16 06:20 - Constitutional Appears: Well - Respiratory Exam Respiratory Exam: Clear to Ausculation Bilateral, NORMAL BREATHING PATTERN - Cardiovascular Exam Cardiovascular Exam: REGULAR RHYTHM - GI/Abdominal Exam GI & Abdominal Exam: Normal Bowel Sounds Additional comments: The entire section incision appears dry. There is an opening on the left lateral part of the wound draining serous fluid. - Exam External exam: NORMAL EXTERNAL EXAM - Neurological Exam Neurological Exam: Alert, Oriented x3 - Psychiatric Exam Psychiatric exam: Normal Affect Assessment and Plan (1) Wound infection following section, Status: Acute - Assessment and Plan (Free Text) Plan: Continue with IV antibiotics Ferrous sulfate po for low Hb.
[2016-12-17] MEDS: Vancomycin 1 gm/NS 200 ml 1 GM/200 ML BAG IVPB SCH (12:00)
--- NOTE | 2016-12-17 14:47 | CP.PCM.PN ---
<Piedad Gregorio - Last Filed: 12/17/16 15:25> Subjective - Date & Time of Evaluation Date of Evaluation: 12/17/16 Time of Evaluation: 07:50 - Subjective Subjective: Patient seen and examined at bedside. Per nursing, no acute events overnight. Patient is doing well, no complaints at this time. Denies pain, headache, dizziness, fevers, chills, nausea, vomiting, changes in bowel habits, dysuria. Patient is ambulating and tolerating diet. Objective - Vital Signs/Intake and Output Vital Signs (last 24 hours): Temp Pulse Resp BP Pulse Ox 98.1 F 78 20 160/100 H 99 12/17/16 04:13 12/17/16 10:57 12/17/16 04:13 12/17/16 10:57 12/17/16 04:13 Intake and Output: 12/17/16 12/17/16 06:59 18:59 Intake Total 450 Balance 450 - Medications Medications: Current Medications Ferrous Sulfate (Feosol) 325 mg PO TID [facility] Last Admin: 12/17/16 13:48 Dose: 325 mg Vancomycin/Sodium Chloride (Vancocin) 1 gm in 200 mls @ 166.7 mls/hr IVPB Q24H [facility] Stop: 12/21/16 12:46 Last Admin: 12/17/16 12:00 Dose: 166.7 mls/hr Meropenem 500 mg/ Sodium (Chloride) 100 mls @ 100 mls/hr IVPB Q8H [facility] Last Admin: 12/17/16 08:20 Dose: 100 mls/hr Lisinopril (Zestril) 10 mg PO DAILY [facility] Last Admin: 12/17/16 13:48 Dose: 10 mg - Labs Labs: 12/16/16 13:00 12/15/16 06:20 - Constitutional Appears: Well, No Acute Distress - Head Exam Head Exam: ATRAUMATIC, NORMAL INSPECTION - Eye Exam Eye Exam: EOMI, Normal appearance Pupil Exam: NORMAL ACCOMODATION - ENT Exam ENT Exam: Mucous Membranes Moist, Normal Exam - Neck Exam Neck Exam: Full ROM - Respiratory Exam Respiratory Exam: Clear to Ausculation Bilateral, NORMAL BREATHING PATTERN - Cardiovascular Exam Cardiovascular Exam: REGULAR RHYTHM, +S1, +S2 - GI/Abdominal Exam GI & Abdominal Exam: Soft, Normal Bowel Sounds. absent: Guarding, Rigid, Tenderness Additional comments: Incision - minimal serosanguinous drainage from L edge of incision, dressing mildly saturated - Rectal Exam Rectal Exam: Deferred - Extremities Exam Extremities Exam: Full ROM, Normal Inspection. absent: Calf Tenderness, Pedal Edema - Back Exam Back Exam: NORMAL INSPECTION - Neurological Exam Neurological Exam: Alert, Awake, Oriented x3 - Psychiatric Exam Psychiatric exam: Normal Affect, Normal Mood - Skin Skin Exam: Normal Color, Warm Assessment and Plan (1) Wound infection following section, Assessment & Plan: 1. Stable, afebrile 2. Leukocytosis resolved: 21.2 -> 10 3. Wound cx - ESBL + 4. Zosyn discontinued, Continue Merrem 500mg Q8H, Vancomycin 1g daily 5. ID on consult, f/u recommendations 6. Will continue to monitor Status: Acute (2) Chronic hypertension Assessment & Plan: 1. BP range 145-160s/90-100s 2. Will start Lisinopril 10mg daily 3. Continue to monitor Status: Acute (3) Anemia Assessment & Plan: 1. Hgb 8.1 yesterday 2. Continue Ferrous sulfate 325mg PO TID Status: Chronic <Erica Naik A - Last Filed: 12/17/16 23:43> Objective - Vital Signs/Intake and Output Vital Signs (last 24 hours): Temp Pulse Resp BP Pulse Ox 98.7 F 65 20 174/101 H 99 12/17/16 21:29 12/17/16 21:29 12/17/16 21:29 12/17/16 21:29 12/17/16 21:29 Intake and Output: 12/17/16 12/18/16 18:59 06:59 Intake Total 450 Balance 450 - Medications Medications: Current Medications Ferrous Sulfate (Feosol) 325 mg PO TID [facility] Last Admin: 12/17/16 18:17 Dose: 325 mg Vancomycin/Sodium Chloride (Vancocin) 1 gm in 200 mls @ 166.7 mls/hr IVPB Q24H [facility] Stop: 12/21/16 12:46 Last Admin: 12/17/16 12:00 Dose: 166.7 mls/hr Meropenem 500 mg/ Sodium (Chloride) 100 mls @ 100 mls/hr IVPB Q8H [facility] Last Admin: 12/17/16 18:17 Dose: 100 mls/hr Labetalol HCl (Trandate) 100 mg PO BID [facility] Last Admin: 12/17/16 22:28 Dose: 100 mg - Labs Labs: 12/16/16 13:00 12/15/16 06:20 Attending/Attestation - Attestation I have personally seen and examined this patient.: Yes I have fully participated in the care of the patient.: Yes I have reviewed all pertinent clinical information, including history, physical exam and plan: Yes Notes (Text): 12/17/16 23:29 Patient seen and evaluated, received in bed, isolation room 654. Patient in good spirits. Reports no incisional pain, fever or chills. Denies nausea or vomiting or diarrhea. 12/17/16 23:31 Abdomen: obese. Soft. non distended. Healed Pfannenstiel scar with keloid changes; firm, minimally tender. Dressing over left corner of incision removed; pressure applied to this area over the 4 mm - approximately 20 cc serosanguineous fluid expressed. No foul odor appreciated. Area cleaned with normal saline; clean dressing applied HD#4/POD# 15 - day 1 meropenem 36 yo P21_2, S/P urgent repeat C/S at 27 weeks for severe superimposed pre-eclampsia, chronic HTN, with wound infection and minimal wound opening. Wound culture isolated esbl E. Coli - currently on meropenem. Case D/W Dr. Rod earlier today; he recommends 2-3 complete days of this IV antibiotics. This was reiterated to patient who expressed an understanding and agrees. No questions offered. Chronic HTN; elevated BPs noted throughout the day. Started on lisinopril this afternoon; labetalol added tonight. Thank you Medicine resident. Continue present management 12/17/16 23:41
--- NOTE | 2016-12-17 15:35 | CP.PCM.PN ---
Subjective - Date & Time of Evaluation Date of Evaluation: 12/17/16 Time of Evaluation: 09:00 - Subjective Subjective: esbl e coli and coag neg staph from wound rx in progress improving Objective - Vital Signs/Intake and Output Vital Signs (last 24 hours): Temp Pulse Resp BP Pulse Ox 98.1 F 78 20 160/100 H 99 12/17/16 04:13 12/17/16 10:57 12/17/16 04:13 12/17/16 10:57 12/17/16 04:13 Intake and Output: 12/17/16 12/17/16 06:59 18:59 Intake Total 450 Balance 450 - Medications Medications: Current Medications Ferrous Sulfate (Feosol) 325 mg PO TID [facility] Last Admin: 12/17/16 13:48 Dose: 325 mg Vancomycin/Sodium Chloride (Vancocin) 1 gm in 200 mls @ 166.7 mls/hr IVPB Q24H [facility] Stop: 12/21/16 12:46 Last Admin: 12/17/16 12:00 Dose: 166.7 mls/hr Meropenem 500 mg/ Sodium (Chloride) 100 mls @ 100 mls/hr IVPB Q8H [facility] Last Admin: 12/17/16 08:20 Dose: 100 mls/hr Lisinopril (Zestril) 10 mg PO DAILY [facility] Last Admin: 12/17/16 13:48 Dose: 10 mg - Labs Labs: 12/16/16 13:00 12/15/16 06:20
[2016-12-18] MEDS: Meropenem 500 MG in Sodium Chloride 0.9% 100 ML IVPB SCH ×3 (01:24→17:51)
--- NOTE | 2016-12-18 09:42 | CP.PCM.PN ---
<Piedad Gregorio - Last Filed: 12/18/16 09:56> Subjective - Date & Time of Evaluation Date of Evaluation: 12/18/16 Time of Evaluation: 09:15 - Subjective Subjective: Patient seen and examined at bedside. Per nursing, no acute events overnight. Patient was started on labetolol 100mg BID for elevated BPs last night. Patient otherwise is doing well, pain is controlled, ambulating and tolerating diet. Denies headaches, dizziness, fevers, chills, CP, SOB, urinary symptoms. Objective - Vital Signs/Intake and Output Vital Signs (last 24 hours): Temp Pulse Resp BP Pulse Ox 98.0 F 71 20 138/85 96 12/18/16 04:00 12/18/16 09:18 12/18/16 04:00 12/18/16 09:18 12/18/16 04:00 Intake and Output: 12/18/16 12/18/16 06:59 18:59 Intake Total 350 Balance 350 - Medications Medications: Current Medications Amlodipine Besylate (Norvasc) 10 mg PO DAILY [facility] Ferrous Sulfate (Feosol) 325 mg PO TID [facility] Last Admin: 12/18/16 09:19 Dose: 325 mg Vancomycin/Sodium Chloride (Vancocin) 1 gm in 200 mls @ 166.7 mls/hr IVPB Q24H [facility] Stop: 12/21/16 12:46 Last Admin: 12/17/16 12:00 Dose: 166.7 mls/hr Meropenem 500 mg/ Sodium (Chloride) 100 mls @ 100 mls/hr IVPB Q8H [facility] Last Admin: 12/18/16 09:25 Dose: 100 mls/hr Labetalol HCl (Trandate) 100 mg PO BID [facility] Last Admin: 12/18/16 09:19 Dose: 100 mg - Labs Labs: 12/16/16 13:00 12/15/16 06:20 - Constitutional Appears: Well, Non-toxic - Head Exam Head Exam: NORMAL INSPECTION, NORMOCEPHALIC - Eye Exam Eye Exam: EOMI, Normal appearance - ENT Exam ENT Exam: Mucous Membranes Moist - Neck Exam Neck Exam: Full ROM - Respiratory Exam Respiratory Exam: Clear to Ausculation Bilateral, NORMAL BREATHING PATTERN - Cardiovascular Exam Cardiovascular Exam: REGULAR RHYTHM, +S1, +S2 - GI/Abdominal Exam GI & Abdominal Exam: Soft, Normal Bowel Sounds Additional comments: Phannenstial Incision- dressing removed, incision firm, minimally tender, cleaned with hydrogen peroxide, expressed 20cc of serosanguinous fluid with small clots from L aspect of wound, pressure dressing re-applied - Extremities Exam Extremities Exam: Full ROM, Normal Inspection - Back Exam Back Exam: NORMAL INSPECTION - Neurological Exam Neurological Exam: Awake, Oriented x3 - Psychiatric Exam Psychiatric exam: Normal Affect, Normal Mood - Skin Skin Exam: Normal Color, Warm Assessment and Plan (1) Wound infection following section, Assessment & Plan: 1. Stable, afebrile 2. ESBL + wound cx 3. Continue Merrem 500mg Q8H and Vancomycin 1 gm daily 4. ID on consult, f/u recommendations 5. Continue daily dressing changes, wound may need packing 6. Will consult wound care 7. Encourage ambulation Status: Acute (2) Chronic hypertension Assessment & Plan: 1. BP range 143-181/90-116, asymptomatic 2. Will start amlodipine 10mg daily 3. Can d/c Labetolol 100mg BID tomorrow 4. Continue BP monitoring Status: Acute (3) Anemia Assessment & Plan: 1. Continue Ferrous Sulfate 325mg TID 2. Hgb 8.1 on 12/16 Status: Chronic <Roberto Carlos Richey - Last Filed: 12/19/16 07:24> Objective - Vital Signs/Intake and Output Vital Signs (last 24 hours): Temp Pulse Resp BP Pulse Ox 98.9 F 76 20 115/77 98 12/18/16 23:25 12/18/16 23:25 12/18/16 23:25 12/18/16 23:25 12/18/16 23:25 Intake and Output: 12/19/16 12/19/16 06:59 18:59 Output Total 700 Balance -700 - Medications Medications: Current Medications Amlodipine Besylate (Norvasc) 10 mg PO DAILY [facility] Last Admin: 12/18/16 10:35 Dose: 10 mg Ferrous Sulfate (Feosol) 325 mg PO TID [facility] Last Admin: 12/18/16 17:52 Dose: 325 mg Vancomycin/Sodium Chloride (Vancocin) 1 gm in 200 mls @ 166.7 mls/hr IVPB Q24H [facility] Stop: 12/21/16 12:46 Last Admin: 12/18/16 12:16 Dose: 166.7 mls/hr Meropenem 500 mg/ Sodium (Chloride) 100 mls @ 100 mls/hr IVPB Q8H [facility] Last Admin: 12/19/16 00:53 Dose: 100 mls/hr Labetalol HCl (Trandate) 100 mg PO BID [facility] Last Admin: 12/18/16 17:52 Dose: 100 mg - Labs Labs: 12/16/16 13:00 12/15/16 06:20 Assessment and Plan (1) Wound infection following section, Status: Acute - Assessment and Plan (Free Text) Plan: Pt was seen and evaluated with the resident and agrees with the above . Roberto Carlos Becker M.D.
[2016-12-18] MEDS: Vancomycin 1 gm/NS 200 ml 1 GM/200 ML BAG IVPB SCH (12:16)
[2016-12-19] MEDS: Meropenem 500 MG in Sodium Chloride 0.9% 100 ML IVPB SCH ×3 (00:53→18:23)
--- NOTE | 2016-12-19 07:18 | CP.PCM.PN ---
<Piedad Gregorio - Last Filed: 12/19/16 09:27> Subjective - Date & Time of Evaluation Date of Evaluation: 12/19/16 Time of Evaluation: 07:00 - Subjective Subjective: Patient seen and examined at bedside. Per nursing, no acute events overnight. Patient is doing well, pain is controlled, ambulating and tolerating diet. Patient denies headache, dizziness, CP, SOB, dysuria, diarrhea, constipation. Objective - Vital Signs/Intake and Output Vital Signs (last 24 hours): Temp Pulse Resp BP Pulse Ox 98.9 F 76 20 115/77 98 12/18/16 23:25 12/18/16 23:25 12/18/16 23:25 12/18/16 23:25 12/18/16 23:25 Intake and Output: 12/19/16 12/19/16 06:59 18:59 Output Total 700 Balance -700 - Medications Medications: Current Medications Amlodipine Besylate (Norvasc) 10 mg PO DAILY [facility] Last Admin: 12/18/16 10:35 Dose: 10 mg Ferrous Sulfate (Feosol) 325 mg PO TID [facility] Last Admin: 12/18/16 17:52 Dose: 325 mg Vancomycin/Sodium Chloride (Vancocin) 1 gm in 200 mls @ 166.7 mls/hr IVPB Q24H [facility] Stop: 12/21/16 12:46 Last Admin: 12/18/16 12:16 Dose: 166.7 mls/hr Meropenem 500 mg/ Sodium (Chloride) 100 mls @ 100 mls/hr IVPB Q8H [facility] Last Admin: 12/19/16 00:53 Dose: 100 mls/hr Labetalol HCl (Trandate) 100 mg PO BID [facility] Last Admin: 12/18/16 17:52 Dose: 100 mg - Labs Labs: 12/16/16 13:00 12/15/16 06:20 - Constitutional Appears: Well, No Acute Distress - Head Exam Head Exam: ATRAUMATIC, NORMAL INSPECTION - Eye Exam Eye Exam: EOMI, Normal appearance - ENT Exam ENT Exam: Mucous Membranes Moist - Neck Exam Neck Exam: Full ROM - Respiratory Exam Respiratory Exam: Clear to Ausculation Bilateral, NORMAL BREATHING PATTERN - Cardiovascular Exam Cardiovascular Exam: REGULAR RHYTHM, +S1, +S2 - GI/Abdominal Exam GI & Abdominal Exam: Soft, Normal Bowel Sounds Additional comments: Incision: L aspect of wound draining approx 20cc sanginous fluid upon expression , fascia intact, iodoform packing inserted, dressing re-applied - Extremities Exam Extremities Exam: Full ROM, Normal Inspection - Back Exam Back Exam: NORMAL INSPECTION - Neurological Exam Neurological Exam: Alert, Awake, Oriented x3 - Skin Skin Exam: Normal Color, Warm Assessment and Plan (1) Wound infection following section, Assessment & Plan: 1. Stable, afebrile 2. ESBL and coagulase negative staph + wound cx 3. Continue Merrem 500mg Q8H (day 3) and Vancomycin 1gm daily 4. ID on consult, f/u recommendations 5. Consider switching abx to PO 6. Wound packed with iodoform and dressing applied 7. Wound care on consult, will f/u recommendations 8. Encourage ambulation Status: Acute (2) Chronic hypertension Assessment & Plan: 1. BP range 115-142/77-85 2. Continue Norvasc 10mg PO daily 3. Continue labetolol 100mg BID 4. Will consult Nephrology 5. Continue BP monitoring Status: Acute (3) Anemia Assessment & Plan: 1. F/U repeat CBC 2. Continue Ferrous sulfate 325mg BID Status: Chronic (4) Renal atrophy, left Assessment & Plan: 1. CT Abd/Pelvis: Markedly atrophic L kidney, small non obstructing L renal calculi, multiple R renal calculi non obstructing 2. Worsening renal function, BUN 21, Cr on admission 2.2, Cr noted to be 0.8 2016 3. F/U urine lytes, CMP 4. Will consult Nephrology Status: Acute <Hunter Meek - Last Filed: 12/19/16 11:55> Objective - Vital Signs/Intake and Output Vital Signs (last 24 hours): Temp Pulse Resp BP Pulse Ox 98.7 F 70 17 151/91 H 99 12/19/16 09:04 12/19/16 09:04 12/19/16 09:04 12/19/16 09:04 12/19/16 09:04 Intake and Output: 12/19/16 12/19/16 06:59 18:59 Output Total 700 Balance -700 - Medications Medications: Current Medications Amlodipine Besylate (Norvasc) 10 mg PO DAILY [facility] Last Admin: 12/19/16 10:17 Dose: 10 mg Ferrous Sulfate (Feosol) 325 mg PO TID [facility] Last Admin: 12/19/16 10:17 Dose: 325 mg Vancomycin/Sodium Chloride (Vancocin) 1 gm in 200 mls @ 166.7 mls/hr IVPB Q24H [facility] Stop: 12/21/16 12:46 Last Admin: 12/18/16 12:16 Dose: 166.7 mls/hr Meropenem 500 mg/ Sodium (Chloride) 100 mls @ 100 mls/hr IVPB Q8H [facility] Last Admin: 12/19/16 09:00 Dose: 100 mls/hr Labetalol HCl (Trandate) 100 mg PO BID [facility] Last Admin: 12/19/16 10:17 Dose: 100 mg - Labs Labs: 12/16/16 13:00 12/15/16 06:20 Attending/Attestation - Attestation I have personally seen and examined this patient.: Yes I have fully participated in the care of the patient.: Yes I have reviewed all pertinent clinical information, including history, physical exam and plan: Yes Notes (Text): 12/19/16 11:55 Patient examined with residenty agree with resident exam, assessment and plan of care consult wound care and nephrology
[2016-12-19 10:54] LABS: CREATININE, RANDOM URINE 43.8 mg/dL
[2016-12-19] MEDS: Vancomycin 1 gm/NS 200 ml 1 GM/200 ML BAG IVPB SCH (12:10)
[2016-12-19 12:40] LABS: HEMOGLOBIN 8.8 g/dL (11.0-16.0); MEAN CORPUSCULAR HEMOGLOBIN 30.5 pg (27.0-31.0); MEAN CORPUSCULAR HGB CONC 33.5 g/dL (33.0-37.0); MEAN PLATELET VOLUME 6.5 fL (7.2-11.7); RBC 2.87 Mil/uL (3.80-5.20); RED CELL DISTRIBUTION WIDTH 14.6 % (11.5-14.5); WHITE BLOOD COUNT 11.8 K/uL (4.8-10.8)
[2016-12-19 12:52] LABS: ALBUMIN 2.9 g/dL (3.5-5.0)
[2016-12-19 12:55] LABS: GFR AFRICAN-AMERICAN > 60; GFR NON-AFRICAN AMERICAN 50
[2016-12-19 12:56] LABS: ALB/GLOB RATIO 0.9 (1.0-2.1); ALT/SGPT 33 U/L (9-52); AST/SGOT 24 U/L (14-36); BLOOD UREA NITROGEN 15 mg/dL (7-17); CALCIUM 8.7 mg/dl (8.6-10.4)
--- NOTE | 2016-12-19 15:00 | CP.PCM.CON ---
History of Present Illness - History of Present Illness History of Present Illness: 36 yo female hx of left atrophic kidney, chronic uti s/p urologic procedure, ?which, ?reflux kidney hx of ckd and htn hx of pre-eclampia with recent , needed now presents with wound infection from growing out ESBL ecoli, on AB Renal consult for ckd f/u No history of ESRD in family frequent urination+ Review of Systems - Constitutional Constitutional: Chills, Fatigue, Fever - Cardiovascular Cardiovascular: absent: Chest Pain, Orthopnea, Rapid Heart Rate - Respiratory Respiratory: absent: Cough, Dyspnea - Gastrointestinal Gastrointestinal: Abdominal Pain Additional comments: drainage from c section - Genitourinary Genitourinary: Urinary Frequency, Freq UTI - Musculoskeletal Musculoskeletal: absent: Arthralgias, Atrophy - Integumentary Integumentary: absent: Alopecia, Change in Hair - Neurological Neurological: absent: Focal Weakness, Headaches - Psychiatric Psychiatric: absent: Abnormal Sleep Pattern, Anxiety - Hematologic/Lymphatic Hematologic: absent: Easy Bleeding, Easy Bruising Past Patient History - Infectious Disease Hx of Infectious Diseases: None - Past Medical History & Family History Past Medical History?: Yes - Past Social History Smoking Status: Never Smoked - CARDIAC Hx Cardiac Disorders: No - PULMONARY Hx Respiratory Disorders: No - NEUROLOGICAL Hx Neurological Disorder: No - HEENT Hx HEENT Problems: No - RENAL Hx Kidney Stones: Yes - ENDOCRINE/METABOLIC Hx Endocrine Disorders: No - INTEGUMENTARY Hx Dermatological Problems: No - MUSCULOSKELETAL/RHEUMATOLOGICAL Hx Falls: No - GASTROINTESTINAL Hx Gall Bladder Disease: Yes - GENITOURINARY/GYNECOLOGICAL Hx Genitourinary Disorders: Yes Other/Comment: Hx of C -section x2. Hx of cholecystectomy, appendectomy. H/O KIDNEY STONES - PSYCHIATRIC Hx Substance Use: No - SURGICAL HISTORY Hx Appendectomy: Yes Hx Cholecystectomy: Yes - ANESTHESIA Hx Anesthesia: Yes Hx Anesthesia Reactions: No Hx Malignant Hyperthermia: No Meds Home Medications: Home Medication List Medication Instructions Recorded Confirmed Type Amoxicillin/Clavulanate [Augmentin 1 tab PO BID #14 tab 12/14/16 Rx 875 MG-125 MG] Metronidazole [Flagyl] 500 mg PO BID #14 tab 12/14/16 Rx Allergies/Adverse Reactions: Allergies Allergy/AdvReac Type Severity Reaction Status Date / Time No Known Allergies Allergy Verified 12/14/16 05:48 - Medications Medications: Current Medications Amlodipine Besylate (Norvasc) 10 mg PO DAILY [facility] Last Admin: 12/19/16 10:17 Dose: 10 mg Ferrous Sulfate (Feosol) 325 mg PO TID [facility] Last Admin: 12/19/16 14:32 Dose: 325 mg Vancomycin/Sodium Chloride (Vancocin) 1 gm in 200 mls @ 166.7 mls/hr IVPB Q24H [facility] Stop: 12/21/16 12:46 Last Admin: 12/19/16 12:10 Dose: 166.7 mls/hr Meropenem 500 mg/ Sodium (Chloride) 100 mls @ 100 mls/hr IVPB Q8H [facility] Last Admin: 12/19/16 09:00 Dose: 100 mls/hr Labetalol HCl (Trandate) 100 mg PO BID [facility] Last Admin: 12/19/16 10:17 Dose: 100 mg Physical Exam - Constitutional Appears: Non-toxic, No Acute Distress - Eye Exam Eye Exam: EOMI, Normal appearance - ENT Exam ENT Exam: Mucous Membranes Moist, Normal Exam - Neck Exam Neck exam: Positive for: Full Rom. Negative for: Lymphadenopathy - Respiratory Exam Respiratory Exam: NORMAL BREATHING PATTERN. absent: Chest Wall Tenderness - Cardiovascular Exam Cardiovascular Exam: REGULAR RHYTHM. absent: Rubs - GI/Abdominal Exam GI & Abdominal Exam: Normal Bowel Sounds, Tenderness Additional comments: incision packed - Extremities Exam Extremities exam: Negative for: pedal edema, tenderness Results - Vital Signs Recent Vital Signs: Last Vital Signs Temp 98.7 F 12/19/16 09:04 Pulse 70 12/19/16 09:04 Resp 17 12/19/16 09:04 BP 151/91 H 12/19/16 09:04 Pulse Ox 99 12/19/16 09:04 - Labs Result Diagrams: 12/19/16 12:23 12/19/16 12:23 Labs: Laboratory Results - last 24 hr 12/19/16 12/19/16 12/19/16 10:31 12:23 12:23 WBC 11.8 H RBC 2.87 L Hgb 8.8 L Hct 26.1 L MCV 91.0 MCH 30.5 MCHC 33.5 RDW 14.6 H Plt Count 587 H MPV 6.5 L Sodium 134 Potassium 4.0 Chloride 103 Carbon Dioxide 24 Anion Gap 11 BUN 15 Creatinine 1.2 Est GFR ( Amer) > 60 Est GFR (Non-Af Amer) 50 Random Glucose 73 Calcium 8.7 Total Bilirubin 0.4 AST 24 ALT 33 Alkaline Phosphatase 190 H D Total Protein 6.1 L Albumin 2.9 L D Globulin 3.2 Albumin/Globulin Ratio 0.9 L Ur Random Creatinine 43.8 Ur Random Sodium 67 Assessment & Plan - Assessment and Plan (Free Text) Assessment: lanny valentinoley due to sepsis and resolving recent pre-eclampia monitor labs quantitate proteinuria renal sonogram office f/u upon discharge
--- NOTE | 2016-12-19 16:14 | CP.PCM.PN ---
Subjective - Date & Time of Evaluation Date of Evaluation: 12/19/16 Time of Evaluation: 09:00 - Subjective Subjective: still has drainage may need I and d cont rx Objective - Vital Signs/Intake and Output Vital Signs (last 24 hours): Temp Pulse Resp BP Pulse Ox 98.7 F 70 17 151/91 H 99 12/19/16 09:04 12/19/16 09:04 12/19/16 09:04 12/19/16 09:04 12/19/16 09:04 Intake and Output: 12/19/16 12/19/16 06:59 18:59 Intake Total 450 Output Total 700 Balance -700 450 - Medications Medications: Current Medications Amlodipine Besylate (Norvasc) 10 mg PO DAILY [facility] Last Admin: 12/19/16 10:17 Dose: 10 mg Ferrous Sulfate (Feosol) 325 mg PO TID [facility] Last Admin: 12/19/16 14:32 Dose: 325 mg Vancomycin/Sodium Chloride (Vancocin) 1 gm in 200 mls @ 166.7 mls/hr IVPB Q24H [facility] Stop: 12/21/16 12:46 Last Admin: 12/19/16 12:10 Dose: 166.7 mls/hr Meropenem 500 mg/ Sodium (Chloride) 100 mls @ 100 mls/hr IVPB Q8H [facility] Last Admin: 12/19/16 09:00 Dose: 100 mls/hr Labetalol HCl (Trandate) 100 mg PO BID [facility] Last Admin: 12/19/16 10:17 Dose: 100 mg - Labs Labs: 12/19/16 12:23 12/19/16 12:23
[2016-12-19 17:48] LABS: URINE BILIRUBIN NEGATIVE (NEGATIVE); URINE BLOOD NEGATIVE (NEGATIVE); URINE CLARITY Clear (Clear); URINE COLOR Straw (YELLOW); URINE GLUCOSE (UA) NORMAL (Normal); URINE LEUKOCYTE ESTERASE NEG Leu/uL (Negative); URINE NITRATE NEGATIVE (NEGATIVE); URINE PROTEIN 1+ mg/dL (NEGATIVE); URINE UROBILINOGEN NORMAL mg/dL (0.2-1.0)
--- NOTE | 2016-12-19 18:57 | US ---
PROCEDURE: Ultrasound of the Kidneys HISTORY: renal disease COMPARISON: Renal ultrasound performed 09/10/16 TECHNIQUE: Sonogram of the kidneys. FINDINGS: RIGHT KIDNEY: Measures: 15.6 x 4.8 x 6.3 cm. Mild fullness of the renal pelvis. Multiple echogenic foci consistent with calculi measuring up to 1.5 cm. 1.2 cm lower pole renal cyst. LEFT KIDNEY: Measures: 6.4 x 3.4 x 3.2 cm. Echogenic renal parenchyma. 5 mm probable calculus. OTHER FINDINGS: None. IMPRESSION: Bilateral renal calculi. Mild fullness of the right renal pelvis. 1.2 cm right lower pole renal cyst. Asymmetry of renal size as above. Echogenic renal parenchyma may be seen in setting of medical renal disease.
[2016-12-20] MEDS: Meropenem 500 MG in Sodium Chloride 0.9% 100 ML IVPB SCH ×3 (01:38→17:51)
[2016-12-20 07:23] LABS: HEMOGLOBIN 9.6 g/dL (11.0-16.0); MEAN CELL VOLUME 89.8 fL (81.0-99.0); MEAN CORPUSCULAR HGB CONC 34.5 g/dL (33.0-37.0); MEAN PLATELET VOLUME 6.5 fL (7.2-11.7); RBC 3.09 Mil/uL (3.80-5.20); RED CELL DISTRIBUTION WIDTH 14.7 % (11.5-14.5); WHITE BLOOD COUNT 10.3 K/uL (4.8-10.8)
--- NOTE | 2016-12-20 10:27 | CP.PCM.PN ---
Subjective - Date & Time of Evaluation Date of Evaluation: 12/20/16 Time of Evaluation: 10:24 - Subjective Subjective: Feels better Wounds slowly improving Remains on IV ABs ELISA improving- creat down to 1.2 Protein excretion rate pending Renal US confirms atrophic left kidney; right kidney appears to have hypertrophied BP controlled Objective - Vital Signs/Intake and Output Vital Signs (last 24 hours): Temp Pulse Resp BP Pulse Ox 98.1 F 69 20 146/90 99 12/20/16 08:36 12/20/16 08:36 12/20/16 08:36 12/20/16 08:36 12/20/16 08:36 Intake and Output: 12/20/16 12/20/16 06:59 18:59 Intake Total 550 Balance 550 - Medications Medications: Current Medications Amlodipine Besylate (Norvasc) 10 mg PO DAILY [facility] Last Admin: 12/19/16 10:17 Dose: 10 mg Ferrous Sulfate (Feosol) 325 mg PO TID [facility] Last Admin: 12/19/16 18:24 Dose: 325 mg Vancomycin/Sodium Chloride (Vancocin) 1 gm in 200 mls @ 166.7 mls/hr IVPB Q24H [facility] Stop: 12/21/16 12:46 Last Admin: 12/19/16 12:10 Dose: 166.7 mls/hr Meropenem 500 mg/ Sodium (Chloride) 100 mls @ 100 mls/hr IVPB Q8H [facility] Last Admin: 12/20/16 01:38 Dose: 100 mls/hr Labetalol HCl (Trandate) 100 mg PO BID [facility] Last Admin: 12/19/16 18:25 Dose: 100 mg - Labs Labs: 12/20/16 07:12 12/19/16 12:23 - Constitutional Appears: No Acute Distress, Chronically Ill - Head Exam Head Exam: ATRAUMATIC, NORMAL INSPECTION - Eye Exam Eye Exam: EOMI, Normal appearance - Neck Exam Neck Exam: Normal Inspection. absent: Tenderness - Respiratory Exam Respiratory Exam: Clear to Ausculation Bilateral, NORMAL BREATHING PATTERN - Cardiovascular Exam Cardiovascular Exam: REGULAR RHYTHM, +S1 - GI/Abdominal Exam GI & Abdominal Exam: Soft, Tenderness - Extremities Exam Extremities Exam: Normal Inspection. absent: Tenderness - Neurological Exam Neurological Exam: Alert, CN II-XII Intact - Skin Skin Exam: Dry, Warm Assessment and Plan (1) ELISA (acute kidney injury) Status: Acute (2) Chronic hypertension Status: Acute (3) Renal atrophy, left Status: Acute (4) Wound infection following section, Status: Acute (5) Escherichia coli (E. coli) infection Status: Acute - Assessment and Plan (Free Text) Plan: Monitor renal function Monitor HTN IV ABs check protein excretion rate
--- NOTE | 2016-12-20 11:41 | CP.PCM.PN ---
<Piedad Gregorio - Last Filed: 12/20/16 11:47> Subjective - Date & Time of Evaluation Date of Evaluation: 12/20/16 Time of Evaluation: 08:30 - Subjective Subjective: Patient seen and examined at bedside. Patient is doing well, no complaints at this time. Per nursing, no acute events overnight. Patient is ambulating and tolerating diet. Pain is controlled, denies headache, dizziness, fevers, chills , fatigue, CP, SOB, dysuria, constipation, diarrhea. [employer] net ui developer # [id number] used for Slovak translation Objective - Vital Signs/Intake and Output Vital Signs (last 24 hours): Temp Pulse Resp BP Pulse Ox 98.1 F 69 20 146/90 99 12/20/16 08:36 12/20/16 08:36 12/20/16 08:36 12/20/16 08:36 12/20/16 08:36 Intake and Output: 12/20/16 12/20/16 06:59 18:59 Intake Total 550 Balance 550 - Medications Medications: Current Medications Amlodipine Besylate (Norvasc) 10 mg PO DAILY [facility] Last Admin: 12/20/16 10:00 Dose: 10 mg Ferrous Sulfate (Feosol) 325 mg PO TID [facility] Last Admin: 12/20/16 10:00 Dose: 325 mg Vancomycin/Sodium Chloride (Vancocin) 1 gm in 200 mls @ 166.7 mls/hr IVPB Q24H [facility] Stop: 12/21/16 12:46 Last Admin: 12/19/16 12:10 Dose: 166.7 mls/hr Meropenem 500 mg/ Sodium (Chloride) 100 mls @ 100 mls/hr IVPB Q8H [facility] Last Admin: 12/20/16 09:00 Dose: 100 mls/hr Labetalol HCl (Trandate) 100 mg PO BID [facility] Last Admin: 12/20/16 10:47 Dose: 100 mg - Labs Labs: 12/20/16 07:12 12/19/16 12:23 - Constitutional Appears: Well, Non-toxic, No Acute Distress - Head Exam Head Exam: ATRAUMATIC, NORMAL INSPECTION - Eye Exam Eye Exam: EOMI, Normal appearance Pupil Exam: NORMAL ACCOMODATION - ENT Exam ENT Exam: Mucous Membranes Moist - Neck Exam Neck Exam: Full ROM - Respiratory Exam Respiratory Exam: Clear to Ausculation Bilateral, NORMAL BREATHING PATTERN - Cardiovascular Exam Cardiovascular Exam: REGULAR RHYTHM, +S1, +S2 - GI/Abdominal Exam GI & Abdominal Exam: Soft, Normal Bowel Sounds Additional comments: Incision: decreasing drainage, packing removed, expressed approx 15cc of serosanginous fluid from L corner of incision, wound repacked - Extremities Exam Extremities Exam: Full ROM, Normal Inspection - Back Exam Back Exam: NORMAL INSPECTION - Neurological Exam Neurological Exam: Alert, Awake, Oriented x3 - Psychiatric Exam Psychiatric exam: Normal Affect, Normal Mood - Skin Skin Exam: Normal Color, Warm Assessment and Plan (1) Wound infection following section, Assessment & Plan: 1. Stable, afebrile 2. ESBL + coagulase negative staph wound cx 2. Continue Merrem 500mg Q8H (day 5) and Vancomycin 1 gm daily 3. Per ID recommendations, Patient to complete total of 7 days of IV Merrem prior to discharge 4. Wound care on consult, will f/u recommendations 5. F/U am labs 6. Encourage ambulation Status: Acute (2) Chronic hypertension Assessment & Plan: 1. BP range 127-146/80-90 2. Continue Amlosipine 10mg daily, Labetalol 100 mg BID 3. Continue BP monitoring Status: Acute (3) Anemia Assessment & Plan: 1. Hgb stable - 9.5 2. Continue ferrous sulfate 325mg PO BID 3. F/U am labs Status: Chronic (4) Renal atrophy, left Status: Acute <Gumaro,Erica A - Last Filed: 12/20/16 12:42> Objective - Vital Signs/Intake and Output Vital Signs (last 24 hours): Temp Pulse Resp BP Pulse Ox 98.1 F 69 20 146/90 99 12/20/16 08:36 12/20/16 08:36 12/20/16 08:36 12/20/16 08:36 12/20/16 08:36 Intake and Output: 12/20/16 12/20/16 06:59 18:59 Intake Total 550 Balance 550 - Medications Medications: Current Medications Amlodipine Besylate (Norvasc) 10 mg PO DAILY [facility] Last Admin: 12/20/16 10:00 Dose: 10 mg Ferrous Sulfate (Feosol) 325 mg PO TID [facility] Last Admin: 12/20/16 10:00 Dose: 325 mg Vancomycin/Sodium Chloride (Vancocin) 1 gm in 200 mls @ 166.7 mls/hr IVPB Q24H [facility] Stop: 12/21/16 12:46 Last Admin: 12/19/16 12:10 Dose: 166.7 mls/hr Meropenem 500 mg/ Sodium (Chloride) 100 mls @ 100 mls/hr IVPB Q8H [facility] Last Admin: 12/20/16 09:00 Dose: 100 mls/hr Labetalol HCl (Trandate) 100 mg PO BID [facility] Last Admin: 12/20/16 10:47 Dose: 100 mg - Labs Labs: 12/20/16 07:12 12/19/16 12:23 Attending/Attestation - Attestation I have personally seen and examined this patient.: Yes I have fully participated in the care of the patient.: Yes I have reviewed all pertinent clinical information, including history, physical exam and plan: Yes Notes (Text): 12/20/16 12:39 Wound dressing performed by me with PGY-1 as noted above. Clarification in assessment: "renal atrophy, left" is a chronic condition - having been managed during the most recent ; although it is unclear when the condition may have predated the . Nephrology is on consult: input and recommendations are appreciated.
[2016-12-20] MEDS: Vancomycin 1 gm/NS 200 ml 1 GM/200 ML BAG IVPB SCH (13:13)
[2016-12-20] MEDS: Saccharomyces Boulardi 250 mg Cap PO SCH (17:51)
--- NOTE | 2016-12-20 19:30 | CP.PCM.CON ---
<Lizzeth Montoya E - Last Filed: 12/20/16 21:55> History of Present Illness - History of Present Illness History of Present Illness: CC: Chronic hypertension HPI: Patient is a 36 year old female , s/p for severe preeclampsia on 12/03/16 at 26 weeks (with loss), which was done at [facility]. Patient presented to the hospital on 12/14/16 with complaints of fever, vomiting and opened incision. Patient was then medically managed on IV antibiotics for ESBL positive wound culture as per ID recommendation. Medicine team was consulted for medical management of uncontrolled hypertension. Patient was then seen and examined at bedside, patient reports that she was doing well and denied headache, nausea, vomiting, blurry vision or visual changes, RUQ pain and peripheral edema. PMD: None Pmhx : HTN, Renal disease PshX: X 3, cholecystectomy, appendectomy, Nephrectomy of second right kidney FHx: None Allergies: NKDA Home medications: Augmentin 875-125mg PO BID, Flagyl 500mg PO BID Social History: 2 Children, lives with family, denies tobacco, ETOH and illicit drug use Review of Systems - Constitutional Constitutional: Fatigue. absent: Chills, Fever, Headache - EENT Eyes: absent: Blurred Vision, Change in Vision Ears: absent: Dizziness - Cardiovascular Cardiovascular: absent: Chest Pain, Dyspnea, Palpitations, Pedal Edema - Respiratory Respiratory: absent: Dyspnea, Dyspnea on Exertion - Gastrointestinal Gastrointestinal: absent: Abdominal Pain, Diarrhea, Nausea, Vomiting - Genitourinary Genitourinary: absent: Dysuria, Urinary Frequency - Neurological Neurological: absent: Dizziness, Headaches - Endocrine Endocrine: Fatigue. absent: Palpitations Past Patient History - Infectious Disease Hx of Infectious Diseases: None - Past Medical History & Family History Past Medical History?: Yes - Past Social History Smoking Status: Never Smoked - CARDIAC Hx Cardiac Disorders: No - PULMONARY Hx Respiratory Disorders: No - NEUROLOGICAL Hx Neurological Disorder: No - HEENT Hx HEENT Problems: No - RENAL Hx Kidney Stones: Yes - ENDOCRINE/METABOLIC Hx Endocrine Disorders: No - INTEGUMENTARY Hx Dermatological Problems: No - MUSCULOSKELETAL/RHEUMATOLOGICAL Hx Falls: No - GASTROINTESTINAL Hx Gall Bladder Disease: Yes - GENITOURINARY/GYNECOLOGICAL Hx Genitourinary Disorders: Yes Other/Comment: Hx of C -section x2. Hx of cholecystectomy, appendectomy. H/O KIDNEY STONES - PSYCHIATRIC Hx Substance Use: No - SURGICAL HISTORY Hx Appendectomy: Yes Hx Cholecystectomy: Yes - ANESTHESIA Hx Anesthesia: Yes Hx Anesthesia Reactions: No Hx Malignant Hyperthermia: No Meds Home Medications: Home Medication List Medication Instructions Recorded Confirmed Type Amoxicillin/Clavulanate [Augmentin 1 tab PO BID #14 tab 12/14/16 Rx 875 MG-125 MG] Metronidazole [Flagyl] 500 mg PO BID #14 tab 12/14/16 Rx Ferrous Sulfate [Feosol] 325 mg PO TID tab 12/25/16 Rx Labetalol [Trandate] 100 mg PO BID #60 tab 12/25/16 Rx Losartan [Cozaar] 50 mg PO DAILY #30 tab 12/25/16 Rx Sulfamethoxazole/Trimethoprim 1 tab PO BID #14 tab 12/25/16 Rx [Bactrim DS 800 mg-160 mg] Allergies/Adverse Reactions: Allergies Allergy/AdvReac Type Severity Reaction Status Date / Time No Known Allergies Allergy Verified 12/14/16 05:48 - Medications Medications: Current Medications Amlodipine Besylate (Norvasc) 10 mg PO DAILY [facility] Last Admin: 12/20/16 10:00 Dose: 10 mg Ferrous Sulfate (Feosol) 325 mg PO TID [facility] Last Admin: 12/20/16 17:50 Dose: 325 mg Vancomycin/Sodium Chloride (Vancocin) 1 gm in 200 mls @ 166.7 mls/hr IVPB Q24H [facility] Stop: 12/21/16 12:46 Last Admin: 12/20/16 13:13 Dose: 166.7 mls/hr Meropenem 500 mg/ Sodium (Chloride) 100 mls @ 100 mls/hr IVPB Q8H [facility] Last Admin: 12/20/16 17:51 Dose: 100 mls/hr Labetalol HCl (Trandate) 100 mg PO BID [facility] Last Admin: 12/20/16 17:50 Dose: 100 mg Saccharomyces Boulardii (Florastor) 250 mg PO BID [facility] Last Admin: 12/20/16 17:51 Dose: 250 mg Physical Exam - Constitutional Appears: Well, No Acute Distress - Head Exam Head Exam: NORMAL INSPECTION, NORMOCEPHALIC - Eye Exam Eye Exam: EOMI, Normal appearance - ENT Exam ENT Exam: Mucous Membranes Moist, Normal Exam - Respiratory Exam Respiratory Exam: Clear to Auscultation Bilateral, NORMAL BREATHING PATTERN - Cardiovascular Exam Cardiovascular Exam: REGULAR RHYTHM, +S1, +S2 - GI/Abdominal Exam GI & Abdominal Exam: Normal Bowel Sounds, Soft, Tenderness ( incision site ) - Extremities Exam Extremities exam: Positive for: normal capillary refill, normal inspection - Neurological Exam Neurological exam: Alert, Normal Gait, Oriented x3 - Psychiatric Exam Psychiatric exam: Normal Affect, Normal Mood - Skin Skin Exam: Dry, Intact, Normal Color Results - Vital Signs Recent Vital Signs: Last Vital Signs Temp 98.3 F 12/20/16 15:13 Pulse 76 12/20/16 15:13 Resp 20 12/20/16 15:13 BP 122/84 12/20/16 15:13 Pulse Ox 99 12/20/16 15:13 - Labs Result Diagrams: 12/20/16 07:12 12/19/16 12:23 Labs: Laboratory Results - last 24 hr 12/20/16 12/20/16 07:12 18:55 WBC 10.3 RBC 3.09 L Hgb 9.6 L Hct 27.8 L MCV 89.8 MCH 31.0 MCHC 34.5 RDW 14.7 H Plt Count 573 H MPV 6.5 L Urine Collection Time 24 Urine Total Volume 3500 Ur Protein 24 Hr Calc 2485.0 H Assessment & Plan (1) Chronic hypertension Assessment and Plan: BP range 127-146/80-90 * Continue Amlodipine 10mg daily, Labetalol 100 mg BID * Monitor BP Status: Acute (2) Wound infection following section, Assessment and Plan: Stable, afebrile * ESBL + coagulase negative staph wound cx * Continue Merrem 500mg Q8H (day 5) and Vancomycin 1 gm daily * Per ID recommendations (Dr. Rod), Patient to complete total of 7 days of IV Merrem prior to discharge * Wound care on consult, will f/u recommendations * F/U am labs and vitals * Encourage ambulation Status: Acute (3) Anemia Assessment and Plan: Asymptomatic H/H stable - 9.5/27.8% * Continue ferrous sulfate 325mg PO BID * F/U am labs Status: Chronic (4) History of renal disease Assessment and Plan: Monitor renal function: Cr, BUN, Urine output Status: Acute (5) Prophylactic measure Assessment and Plan: SCD Florastor 250mg PO BID Status: Acute <Alisa Hayes V - Last Filed: 12/25/16 16:08> Results - Vital Signs Recent Vital Signs: Last Vital Signs Temp 98.3 F 12/24/16 15:41 Pulse 67 12/24/16 15:41 Resp 20 12/24/16 15:41 BP 129/89 12/24/16 15:41 Pulse Ox 100 12/24/16 15:41 - Labs Result Diagrams: 12/24/16 07:14 12/25/16 07:08 Labs: Laboratory Results - last 24 hr 12/25/16 07:08 Sodium 137 Potassium 4.7 Chloride 106 Carbon Dioxide 21 L Anion Gap 15 BUN 18 H Creatinine 1.3 H Est GFR ( Amer) 55 Est GFR (Non-Af Amer) 46 Random Glucose 87 Calcium 9.2 Total Bilirubin 0.4 AST 22 ALT 39 Alkaline Phosphatase 174 H Total Protein 6.8 Albumin 3.4 L Globulin 3.5 Albumin/Globulin Ratio 1.0 Attending/Attestation - Attestation I have personally seen and examined this patient.: Yes I have fully participated in the care of the patient.: Yes I have reviewed all pertinent clinical information: Yes Notes (Text): This is late computer entry for 12/20/16. Patient seen, examined, and case discussed with day-time pharmacy grad intern. Medicine consulted for uncontrolled hypertension. Patient currently controlled on Norvasc and Labetolol per ob-rn medical surgical. Patient's blood pressure is controlled on current regimen. Infectious disease consult on board for ESBL+ and nephrology consult on board for chronic kidney disease, patient reports she sees Dr. Flores as outpatient. Discussed with Dr. Naik, ob-rn medical surgical on 12/20/16. Medicine will continue to follow.
[2016-12-21] MEDS: Meropenem 500 MG in Sodium Chloride 0.9% 100 ML IVPB SCH ×3 (01:40→17:10)
[2016-12-21 08:23] LABS: BASO # 0.1 K/uL (0.0-0.2); EOS # 0.6 K/uL (0.0-0.7); HEMOGLOBIN 9.6 g/dL (11.0-16.0); LYMPH # 2.2 K/uL (1.0-4.3); LYMPH % 23.3 % (20.0-40.0); MEAN CELL VOLUME 90.8 fL (81.0-99.0); MEAN CORPUSCULAR HEMOGLOBIN 30.1 pg (27.0-31.0); MEAN CORPUSCULAR HGB CONC 33.2 g/dL (33.0-37.0); MEAN PLATELET VOLUME 6.7 fL (7.2-11.7); MONO # 0.5 K/uL (0.0-0.8); NEUT % 64.7 % (50.0-75.0); RBC 3.18 Mil/uL (3.80-5.20); RED CELL DISTRIBUTION WIDTH 14.8 % (11.5-14.5); WHITE BLOOD COUNT 9.3 K/uL (4.8-10.8)
[2016-12-21 08:43] LABS: GFR AFRICAN-AMERICAN > 60; GFR NON-AFRICAN AMERICAN 50
[2016-12-21 08:44] LABS: ALB/GLOB RATIO 0.9 (1.0-2.1); ALT/SGPT 33 U/L (9-52); AST/SGOT 21 U/L (14-36); BLOOD UREA NITROGEN 15 mg/dL (7-17); CALCIUM 8.5 mg/dl (8.6-10.4); MAGNESIUM 1.9 mg/dL (1.6-2.3)
[2016-12-21] MEDS: Saccharomyces Boulardi 250 mg Cap PO SCH ×2 (09:55→17:09)
--- NOTE | 2016-12-21 11:28 | CP.PCM.PN ---
<Jeanie Jules - Last Filed: 12/21/16 15:18> Subjective - Date & Time of Evaluation Date of Evaluation: 12/21/16 Time of Evaluation: 11:21 - Subjective Subjective: Hospitalists progress note Pt is seen and examined at bedside. No acute events overnight. Patient's blood pressure stable overnight. Patient denies having any CP, SOB, abd pain, N/v/D/C , dysuria. Patient is tolerating diet. 12 point ROS are negative except for the above mentioned. Objective - Vital Signs/Intake and Output Vital Signs (last 24 hours): Temp Pulse Resp BP Pulse Ox 98.1 F 69 18 113/75 97 12/21/16 07:35 12/21/16 07:35 12/21/16 07:35 12/21/16 07:35 12/21/16 07:35 Intake and Output: 12/21/16 12/21/16 06:59 18:59 Intake Total 450 Balance 450 - Medications Medications: Current Medications Amlodipine Besylate (Norvasc) 10 mg PO DAILY [facility] Last Admin: 12/21/16 09:56 Dose: 10 mg Ferrous Sulfate (Feosol) 325 mg PO TID [facility] Last Admin: 12/21/16 09:56 Dose: 325 mg Vancomycin/Sodium Chloride (Vancocin) 1 gm in 200 mls @ 166.7 mls/hr IVPB Q24H [facility] Stop: 12/21/16 12:46 Last Admin: 12/20/16 13:13 Dose: 166.7 mls/hr Meropenem 500 mg/ Sodium (Chloride) 100 mls @ 100 mls/hr IVPB Q8H [facility] Last Admin: 12/21/16 09:00 Dose: 100 mls/hr Labetalol HCl (Trandate) 100 mg PO BID [facility] Last Admin: 12/21/16 09:56 Dose: 100 mg Saccharomyces Boulardii (Florastor) 250 mg PO BID [facility] Last Admin: 12/21/16 09:55 Dose: 250 mg - Labs Labs: 12/21/16 08:13 12/21/16 08:13 - Constitutional Appears: Non-toxic, No Acute Distress - Head Exam Head Exam: ATRAUMATIC - ENT Exam ENT Exam: Mucous Membranes Moist - Respiratory Exam Respiratory Exam: Clear to Ausculation Bilateral, NORMAL BREATHING PATTERN. absent: Rales, Rhonchi, Wheezes - Cardiovascular Exam Cardiovascular Exam: REGULAR RHYTHM, +S1, +S2. absent: Gallop, Rubs, Murmur - GI/Abdominal Exam GI & Abdominal Exam: Soft, Normal Bowel Sounds. absent: Firm, Guarding, Rigid, Tenderness, Organomegaly - Extremities Exam Extremities Exam: absent: Pedal Edema, Tenderness - Neurological Exam Neurological Exam: Alert, Awake, Oriented x3 - Psychiatric Exam Psychiatric exam: Normal Affect, Normal Mood - Skin Skin Exam: Dry, Intact, Normal Color, Warm Assessment and Plan - Assessment and Plan (Free Text) Assessment: 36 year old female s/p emergent c section / preeclampsia on 12/03 is being seen for uncontrolled HTN. (1) Chronic hypertension Stable BP range 127-146/80-90 * Continue Amlodipine 10mg daily, Labetalol 100 mg BID (2) Wound infection following section, Stable, afebrile * ESBL + coagulase negative staph wound cx * Continue Merrem 500mg Q8H (day 6) and Vancomycin 1 gm daily * Per ID recommendations (Dr. Rod), Patient to complete total of 7 days of IV Merrem prior to discharge * Wound care on consult, will f/u recommendations * Encourage ambulation (3) Anemia Asymptomatic H/H stable - 9.5/27.8% * Continue ferrous sulfate 325mg PO BID * F/U am labs (4) History of renal disease Cr down trending Monitor renal function: Cr, BUN, Urine output (5) Prophylactic measure SCD Florastor 250mg PO BID Case discussed with attending, Dr. Hayes <Alisa Hayes V - Last Filed: 12/25/16 16:10> Objective - Vital Signs/Intake and Output Vital Signs (last 24 hours): Temp Pulse Resp BP Pulse Ox 98.3 F 67 20 129/89 100 12/24/16 15:41 12/24/16 15:41 12/24/16 15:41 12/24/16 15:41 12/24/16 15:41 Intake and Output: 12/25/16 12/25/16 06:59 18:59 Intake Total 500 450 Balance 500 450 - Labs Labs: 12/24/16 07:14 12/25/16 07:08 Attending/Attestation - Attestation I have personally seen and examined this patient.: Yes I have fully participated in the care of the patient.: Yes I have reviewed all pertinent clinical information, including history, physical exam and plan: Yes Notes (Text): This is late computer entry for 12/21/16. Patient seen, examined and case discussed with day-time resident. Patient's blood pressure is controlled on current management. Infectious disease on board for patient's EBSL+ culture. Nephrology on board for patient's chronic kidney disease. 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 Medicine will continue to monitor
[2016-12-21] MEDS: Vancomycin 1 gm/NS 200 ml 1 GM/200 ML BAG IVPB SCH (12:20)
--- NOTE | 2016-12-21 13:42 | CP.PCM.PN ---
<Piedad Gregorio - Last Filed: 12/21/16 14:09> Subjective - Date & Time of Evaluation Date of Evaluation: 12/21/16 Time of Evaluation: 08:00 - Subjective Subjective: Patient seen and examined at bedside. Patient is doing well, no complaints at this time. Per nursing, no acute events overnight. Patient is ambulating and tolerating diet. Denies headache, dizziness, nausea, vomiting, CP, SOB, abdominal pain, constipation, diarrhea. Objective - Vital Signs/Intake and Output Vital Signs (last 24 hours): Temp Pulse Resp BP Pulse Ox 98.1 F 69 18 113/75 97 12/21/16 07:35 12/21/16 07:35 12/21/16 07:35 12/21/16 07:35 12/21/16 07:35 Intake and Output: 12/21/16 12/21/16 06:59 18:59 Intake Total 450 Balance 450 - Medications Medications: Current Medications Amlodipine Besylate (Norvasc) 10 mg PO DAILY [facility] Last Admin: 12/21/16 09:56 Dose: 10 mg Ferrous Sulfate (Feosol) 325 mg PO TID [facility] Last Admin: 12/21/16 13:00 Dose: 325 mg Meropenem 500 mg/ Sodium (Chloride) 100 mls @ 100 mls/hr IVPB Q8H [facility] Last Admin: 12/21/16 09:00 Dose: 100 mls/hr Labetalol HCl (Trandate) 100 mg PO BID [facility] Last Admin: 12/21/16 09:56 Dose: 100 mg Saccharomyces Boulardii (Florastor) 250 mg PO BID [facility] Last Admin: 12/21/16 09:55 Dose: 250 mg - Labs Labs: 12/21/16 08:13 12/21/16 08:13 - Constitutional Appears: Well, Non-toxic, No Acute Distress - Head Exam Head Exam: ATRAUMATIC, NORMAL INSPECTION - Eye Exam Eye Exam: EOMI, Normal appearance Pupil Exam: NORMAL ACCOMODATION - ENT Exam ENT Exam: Mucous Membranes Moist - Neck Exam Neck Exam: Full ROM - Respiratory Exam Respiratory Exam: Clear to Ausculation Bilateral, NORMAL BREATHING PATTERN - Cardiovascular Exam Cardiovascular Exam: REGULAR RHYTHM, +S1, +S2 - GI/Abdominal Exam GI & Abdominal Exam: Soft, Normal Bowel Sounds Additional comments: Incision: dressing removed, expressed approx 10cc of serosanginous fluid from wound, wound cleaned and repacked with iodoform, wet to dry dressing applied - Back Exam Back Exam: NORMAL INSPECTION - Neurological Exam Neurological Exam: Alert, Oriented x3 - Psychiatric Exam Psychiatric exam: Normal Affect, Normal Mood - Skin Skin Exam: Dry, Normal Color, Warm Assessment and Plan (1) Wound infection following section, Assessment & Plan: 1. Stable, afebrile 2. ESBL + coagulase negative staph wound cx 3. Continue Merrem 500mg Q8H and Vancomycin 1 gm daily 4. ID on consult, f/u recommendations; Patient to finish total of 7 days of Merrem 5. Continue daily packing and wet to dry dressing changes 6. Wound care on consult Status: Acute (2) Chronic hypertension Assessment & Plan: 1. BP range 117-146/78-90 2. Continue Norvasc 10mg and labetalol 100mg BID 3. Medicine on consult, f/u recommendations 4. Continue BP monitoring Status: Acute (3) Anemia Assessment & Plan: 1. Hgb 9.6 stable 2. Continue Ferrous sulfate 325mg BID Status: Chronic (4) Renal atrophy, left Assessment & Plan: 1. Renal on consult, will f/u recommendations 2. 24 hr urine protein completed - 2485.9 3. BUN/Cr 15/1.2, improved 4. Patient to follow up with renal as outpatient Status: Acute <Constanza Gandhi - Last Filed: 12/21/16 14:52> Subjective - Subjective Subjective: Agree with above, pt denies any pain, fevers, chills, nausea, vomiting, CP, SOB , sadness, depression, constipation, diarhea, vaginal bleeding. Objective - Vital Signs/Intake and Output Vital Signs (last 24 hours): Temp Pulse Resp BP Pulse Ox 98.1 F 69 18 113/75 97 12/21/16 07:35 12/21/16 07:35 12/21/16 07:35 12/21/16 07:35 12/21/16 07:35 Intake and Output: 12/21/16 12/21/16 06:59 18:59 Intake Total 450 500 Balance 450 500 - Medications Medications: Current Medications Amlodipine Besylate (Norvasc) 10 mg PO DAILY [facility] Last Admin: 12/21/16 09:56 Dose: 10 mg Ferrous Sulfate (Feosol) 325 mg PO TID [facility] Last Admin: 12/21/16 13:00 Dose: 325 mg Meropenem 500 mg/ Sodium (Chloride) 100 mls @ 100 mls/hr IVPB Q8H [facility] Last Admin: 12/21/16 09:00 Dose: 100 mls/hr Labetalol HCl (Trandate) 100 mg PO BID [facility] Last Admin: 12/21/16 09:56 Dose: 100 mg Saccharomyces Boulardii (Florastor) 250 mg PO BID [facility] Last Admin: 12/21/16 09:55 Dose: 250 mg - Labs Labs: 12/21/16 08:13 12/21/16 08:13 - GI/Abdominal Exam Additional comments: no guarding, no rebound tendernes, no rigidity, +BS, left apex of incisn with 1.5cm defect , no odor, no erythema, righ tpaex to midline C/d/I healing well, non tender, no crepitus - Exam Additional comments: no vaginal bleeding - Extremities Exam Extremities Exam: Full ROM, Normal Capillary Refill, Normal Inspection Assessment and Plan (1) Wound infection following section, Assessment & Plan: 1. Wound Infection: s/p CT Scan + collection, Wound Culture: Positive ESBL E Coli, Continue IV Antibiotics, s/p ID Consult appreciated s/p Vancomycin Continue Merrem IV x 7 days as per ID, started 12/16 17:00 Blood Culture: no growth x 5 days Continue Wet to Dry Wound Care Wound Care Consult Pending Afebrile, continue Close observation of Vitals WBC 21---> 9.3 f/u AM Labs 2. Chronic HTN s/p Severe Preeclampsia BP well controlled: 110-120/70-80s Continue Norvas 10mg po q day, Labetaol 100mg BID s/p Medicine Consult appreciated 3. Anemia Hb Stable: 9.6 continue ferrous sulfate 4. Chronic Kidney Disease Creatiine 1.2 s/p 24 hour urine protein s/p Renal sonogram s/p Nephrology consult appreciated 5. Routine Care -encourage ambulation -Renal Diet -Iv heplock -SCDS when not ambulating -AM Labs -For Social Work Consult Pt seen and examined with resident physician plan of care discussed with patient all questions answered Status: Acute
--- NOTE | 2016-12-21 14:46 | CP.PCM.PN ---
Subjective - Date & Time of Evaluation Date of Evaluation: 12/21/16 Time of Evaluation: 14:43 - Subjective Subjective: Alert; feels better HTN controlled Creat has improved- now 1.2 Urine protein excretion rate 2485 mg/24 hrs- nephrotic range proteinuria Remains on IV ABs for wound infection Objective - Vital Signs/Intake and Output Vital Signs (last 24 hours): Temp Pulse Resp BP Pulse Ox 98.1 F 69 18 113/75 97 12/21/16 07:35 12/21/16 07:35 12/21/16 07:35 12/21/16 07:35 12/21/16 07:35 Intake and Output: 12/21/16 12/21/16 06:59 18:59 Intake Total 450 500 Balance 450 500 - Medications Medications: Current Medications Amlodipine Besylate (Norvasc) 10 mg PO DAILY [facility] Last Admin: 12/21/16 09:56 Dose: 10 mg Ferrous Sulfate (Feosol) 325 mg PO TID [facility] Last Admin: 12/21/16 13:00 Dose: 325 mg Meropenem 500 mg/ Sodium (Chloride) 100 mls @ 100 mls/hr IVPB Q8H [facility] Last Admin: 12/21/16 09:00 Dose: 100 mls/hr Labetalol HCl (Trandate) 100 mg PO BID [facility] Last Admin: 12/21/16 09:56 Dose: 100 mg Saccharomyces Boulardii (Florastor) 250 mg PO BID [facility] Last Admin: 12/21/16 09:55 Dose: 250 mg - Labs Labs: 12/21/16 08:13 12/21/16 08:13 - Constitutional Appears: No Acute Distress, Chronically Ill - Head Exam Head Exam: ATRAUMATIC, NORMAL INSPECTION - Eye Exam Eye Exam: EOMI, Normal appearance - Neck Exam Neck Exam: Normal Inspection. absent: Tenderness - Respiratory Exam Respiratory Exam: Clear to Ausculation Bilateral, NORMAL BREATHING PATTERN - Cardiovascular Exam Cardiovascular Exam: REGULAR RHYTHM, +S1 - GI/Abdominal Exam GI & Abdominal Exam: Soft, Tenderness - Extremities Exam Extremities Exam: Normal Inspection. absent: Tenderness - Neurological Exam Neurological Exam: Alert, CN II-XII Intact - Skin Skin Exam: Dry, Warm Assessment and Plan (1) ELISA (acute kidney injury) Status: Acute (2) Chronic hypertension Status: Acute (3) Renal atrophy, left Status: Acute (4) Wound infection following section, Status: Acute (5) Escherichia coli (E. coli) infection Status: Acute - Assessment and Plan (Free Text) Plan: Add ARB agent for proteinuria Monitor BP- will hold amlodipine now Check immunologic studies
--- NOTE | 2016-12-21 15:20 | CP.PCM.PN ---
Subjective - Date & Time of Evaluation Date of Evaluation: 12/21/16 Time of Evaluation: 09:00 - Subjective Subjective: less pain and drainage no fever Objective - Vital Signs/Intake and Output Vital Signs (last 24 hours): Temp Pulse Resp BP Pulse Ox 98.1 F 69 18 113/75 97 12/21/16 07:35 12/21/16 07:35 12/21/16 07:35 12/21/16 07:35 12/21/16 07:35 Intake and Output: 12/21/16 12/21/16 06:59 18:59 Intake Total 450 500 Balance 450 500 - Medications Medications: Current Medications Ferrous Sulfate (Feosol) 325 mg PO TID [facility] Last Admin: 12/21/16 13:00 Dose: 325 mg Meropenem 500 mg/ Sodium (Chloride) 100 mls @ 100 mls/hr IVPB Q8H [facility] Last Admin: 12/21/16 09:00 Dose: 100 mls/hr Labetalol HCl (Trandate) 100 mg PO BID [facility] Last Admin: 12/21/16 09:56 Dose: 100 mg Losartan Potassium (Cozaar) 50 mg PO DAILY [facility] Saccharomyces Boulardii (Florastor) 250 mg PO BID [facility] Last Admin: 12/21/16 09:55 Dose: 250 mg - Labs Labs: 12/21/16 08:13 12/21/16 08:13 - Constitutional Appears: Non-toxic, Chronically Ill - Head Exam Head Exam: NORMOCEPHALIC - Eye Exam Eye Exam: PERRL. absent: Scleral icterus - ENT Exam ENT Exam: Mucous Membranes Dry, Normal External Ear Exam - Neck Exam Neck Exam: absent: Lymphadenopathy - Respiratory Exam Respiratory Exam: Decreased Breath Sounds, Clear to Ausculation Bilateral - Cardiovascular Exam Cardiovascular Exam: REGULAR RHYTHM, +S1, +S2 - GI/Abdominal Exam GI & Abdominal Exam: Distended, Soft - Exam Exam: NORMAL INSPECTION - Extremities Exam Extremities Exam: absent: Calf Tenderness, Pedal Edema - Back Exam Back Exam: absent: CVA tenderness (L), CVA tenderness (R) Assessment and Plan - Assessment and Plan (Free Text) Plan: resolving sepsis wound infection s/p c section MDRO cont vanco/merrem
[2016-12-22] MEDS: Meropenem 500 MG in Sodium Chloride 0.9% 100 ML IVPB SCH ×3 (00:31→17:21)
[2016-12-22 06:47] LABS: BASO # 0.1 K/uL (0.0-0.2); BASO % 1.4 % (0.0-2.0); EOS # 0.6 K/uL (0.0-0.7); EOS % 7.4 % (0.0-4.0); HEMOGLOBIN 10.1 g/dL (11.0-16.0); LYMPH % 24.4 % (20.0-40.0); MEAN CELL VOLUME 89.6 fL (81.0-99.0); MEAN CORPUSCULAR HEMOGLOBIN 30.9 pg (27.0-31.0); MEAN CORPUSCULAR HGB CONC 34.4 g/dL (33.0-37.0); MEAN PLATELET VOLUME 6.6 fL (7.2-11.7); MONO # 0.4 K/uL (0.0-0.8); MONO % 4.9 % (0.0-10.0); NEUT # 5.1 K/uL (1.8-7.0); NEUT % 61.9 % (50.0-75.0); NRBC % 0.1 % (0.0-2.0); RBC 3.28 Mil/uL (3.80-5.20); RED CELL DISTRIBUTION WIDTH 14.9 % (11.5-14.5); WHITE BLOOD COUNT 8.2 K/uL (4.8-10.8)
[2016-12-22 06:54] LABS: ALBUMIN 3.3 g/dL (3.5-5.0)
[2016-12-22 06:56] LABS: GFR AFRICAN-AMERICAN > 60; GFR NON-AFRICAN AMERICAN 50
[2016-12-22 06:57] LABS: ALT/SGPT 29 U/L (9-52); AST/SGOT 23 U/L (14-36); BLOOD UREA NITROGEN 15 mg/dL (7-17); CALCIUM 8.8 mg/dl (8.6-10.4)
[2016-12-22 07:04] LABS: COMPLEMENT C4 31.2 mg/dL (14.0-44.0)
--- NOTE | 2016-12-22 08:04 | CP.PCM.PN ---
<Jeremy Garcia - Last Filed: 12/22/16 20:51> Subjective - Date & Time of Evaluation Date of Evaluation: 12/22/16 Time of Evaluation: 08:15 - Subjective Subjective: Medicine Note- Hospitalist Service Patient was seen and examined at bedside. Patient reports no acute complaints at this time. Patient is tolerating PO and having regular BMs. No events overnight, per nursing. I explained the need to continue blood pressure medication after she is discharged. Objective - Vital Signs/Intake and Output Vital Signs (last 24 hours): Temp Pulse Resp BP Pulse Ox 98.1 F 75 20 119/75 97 12/21/16 23:15 12/21/16 23:15 12/21/16 23:15 12/21/16 23:15 12/21/16 23:15 Intake and Output: 12/22/16 12/22/16 06:59 18:59 Intake Total 480 Balance 480 - Medications Medications: Current Medications Ferrous Sulfate (Feosol) 325 mg PO TID [facility] Last Admin: 12/21/16 17:09 Dose: 325 mg Meropenem 500 mg/ Sodium (Chloride) 100 mls @ 100 mls/hr IVPB Q8H [facility] Last Admin: 12/22/16 00:31 Dose: 100 mls/hr Labetalol HCl (Trandate) 100 mg PO BID [facility] Last Admin: 12/21/16 17:11 Dose: 100 mg Losartan Potassium (Cozaar) 50 mg PO DAILY [facility] Saccharomyces Boulardii (Florastor) 250 mg PO BID [facility] Last Admin: 12/21/16 17:09 Dose: 250 mg - Labs Labs: 12/22/16 06:33 12/22/16 06:33 - Constitutional Appears: Non-toxic, No Acute Distress - Head Exam Head Exam: ATRAUMATIC, NORMAL INSPECTION, NORMOCEPHALIC - Eye Exam Pupil Exam: NORMAL ACCOMODATION, PERRL - ENT Exam ENT Exam: Mucous Membranes Moist - Respiratory Exam Respiratory Exam: Clear to Ausculation Bilateral, NORMAL BREATHING PATTERN. absent: Rhonchi, Wheezes - Cardiovascular Exam Cardiovascular Exam: REGULAR RHYTHM, +S1, +S2 - GI/Abdominal Exam GI & Abdominal Exam: Soft, Normal Bowel Sounds. absent: Tenderness, Diminished Bowel Sounds, Hernia, Hyperactive Bowel Sounds, Hypoactive Bowel Sounds - Extremities Exam Extremities Exam: Normal Capillary Refill, Normal Inspection - Neurological Exam Neurological Exam: Alert, Awake, Oriented x3 - Psychiatric Exam Psychiatric exam: Normal Affect, Normal Mood - Skin Skin Exam: Dry, Intact, Normal Color, Warm Assessment and Plan - Assessment and Plan (Free Text) Assessment: (1) Chronic hypertension Stable BP range 127-146/80-90 * Continue Losartan 50mg PO Daily, Labetalol 100 mg BID (2) Wound infection following section, Stable, afebrile * ESBL + coagulase negative staph wound cx * Continue Meropenem 500mg Q8H (day 6) and Vancomycin 1 gm daily * Per ID recommendations (Dr. Rod), Patient to complete total of 7 days of IV Merrem prior to discharge * Wound care on consult, will f/u recommendations * Encourage ambulation (3) Anemia Asymptomatic H/H stable - 9.5/27.8% * Continue ferrous sulfate 325mg PO BID * F/U am labs (4) History of renal disease Cr down trending Monitor renal function: Cr, BUN, Urine output (5) Prophylactic measure SCD Florastor 250mg PO BID Case discussed with attending, Dr. Hayes Upon discharge, patient is to continue Losartan and Labetalol, Rx written in chart <Alisa Hayes V - Last Filed: 12/25/16 16:12> Objective - Vital Signs/Intake and Output Vital Signs (last 24 hours): Temp Pulse Resp BP Pulse Ox 98.3 F 67 20 129/89 100 12/24/16 15:41 12/24/16 15:41 12/24/16 15:41 12/24/16 15:41 12/24/16 15:41 Intake and Output: 12/25/16 12/25/16 06:59 18:59 Intake Total 500 450 Balance 500 450 - Labs Labs: 12/24/16 07:14 12/25/16 07:08 Attending/Attestation - Attestation I have personally seen and examined this patient.: Yes I have fully participated in the care of the patient.: Yes I have reviewed all pertinent clinical information, including history, physical exam and plan: Yes Notes (Text): This is late computer entry for 12/22/16. Patient seen, examined and case discussed with day-time resident. Patient's blood pressure remains controlled on current regimen. Infectious disease on board for patient's ESBL+ wound. Nephrology on board for patient's chronic kidney disease. Primary management per OBGYN.
--- NOTE | 2016-12-22 09:52 | CP.PCM.PN ---
Subjective - Date & Time of Evaluation Date of Evaluation: 12/22/16 Time of Evaluation: 09:49 - Subjective Subjective: pt seen and examined in chair, comfortable no complaints no headaches no other complaints BP good ROS- 10 point ROS negative Objective - Vital Signs/Intake and Output Vital Signs (last 24 hours): Temp Pulse Resp BP Pulse Ox 99 F 72 18 120/89 99 12/22/16 07:00 12/22/16 07:00 12/22/16 07:00 12/22/16 07:00 12/22/16 07:00 Intake and Output: 12/22/16 12/22/16 06:59 18:59 Intake Total 480 Balance 480 - Medications Medications: Current Medications Ferrous Sulfate (Feosol) 325 mg PO TID [facility] Last Admin: 12/21/16 17:09 Dose: 325 mg Meropenem 500 mg/ Sodium (Chloride) 100 mls @ 100 mls/hr IVPB Q8H [facility] Last Admin: 12/22/16 00:31 Dose: 100 mls/hr Labetalol HCl (Trandate) 100 mg PO BID [facility] Last Admin: 12/21/16 17:11 Dose: 100 mg Losartan Potassium (Cozaar) 50 mg PO DAILY [facility] Saccharomyces Boulardii (Florastor) 250 mg PO BID [facility] Last Admin: 12/21/16 17:09 Dose: 250 mg - Labs Labs: 12/22/16 06:33 12/22/16 06:33 - Constitutional Appears: Well, Non-toxic - Head Exam Head Exam: ATRAUMATIC, NORMOCEPHALIC - Eye Exam Eye Exam: EOMI, PERRL - ENT Exam ENT Exam: Mucous Membranes Moist - Neck Exam Neck Exam: Full ROM - Respiratory Exam Respiratory Exam: Clear to Ausculation Bilateral. absent: Rhonchi, Wheezes - Cardiovascular Exam Cardiovascular Exam: REGULAR RHYTHM, +S1, +S2 - GI/Abdominal Exam GI & Abdominal Exam: Soft. absent: Tenderness - Extremities Exam Extremities Exam: Full ROM. absent: Pedal Edema - Neurological Exam Neurological Exam: Alert, Awake, Oriented x3 Assessment and Plan (1) ELISA (acute kidney injury) Status: Acute (2) Chronic hypertension Status: Acute (3) Renal atrophy, left Status: Acute (4) Wound infection following section, Status: Acute (5) Escherichia coli (E. coli) infection Status: Acute - Assessment and Plan (Free Text) Plan: Cr stable at 1.2 BP well controlled has proteinuria- on losartan needs follow up after discharge
[2016-12-22] MEDS: Saccharomyces Boulardi 250 mg Cap PO SCH ×2 (10:11→17:21)
--- NOTE | 2016-12-22 11:46 | CP.PCM.PN ---
Subjective - Date & Time of Evaluation Date of Evaluation: 12/22/16 Time of Evaluation: 10:00 - Subjective Subjective: Patient seen at bedside.denies nuase, vomiting, headache, chest pain, shortnes sof breath Objective - Vital Signs/Intake and Output Vital Signs (last 24 hours): Temp Pulse Resp BP Pulse Ox 99 F 83 18 127/84 99 12/22/16 07:00 12/22/16 10:11 12/22/16 07:00 12/22/16 10:11 12/22/16 07:00 Intake and Output: 12/22/16 12/22/16 06:59 18:59 Intake Total 480 Balance 480 - Medications Medications: Current Medications Ferrous Sulfate (Feosol) 325 mg PO TID [facility] Last Admin: 12/22/16 10:12 Dose: 325 mg Meropenem 500 mg/ Sodium (Chloride) 100 mls @ 100 mls/hr IVPB Q8H [facility] Last Admin: 12/22/16 10:12 Dose: 100 mls/hr Labetalol HCl (Trandate) 100 mg PO BID [facility] Last Admin: 12/21/16 17:11 Dose: 100 mg Losartan Potassium (Cozaar) 50 mg PO DAILY [facility] Last Admin: 12/22/16 10:11 Dose: 50 mg Saccharomyces Boulardii (Florastor) 250 mg PO BID [facility] Last Admin: 12/22/16 10:11 Dose: 250 mg - Labs Labs: 12/22/16 06:33 12/22/16 06:33 - Constitutional Appears: Well, No Acute Distress - Respiratory Exam Respiratory Exam: Clear to Ausculation Bilateral, NORMAL BREATHING PATTERN - Cardiovascular Exam Cardiovascular Exam: REGULAR RHYTHM - GI/Abdominal Exam GI & Abdominal Exam: Soft, Normal Bowel Sounds. absent: Rebound Additional comments: Incision with small area of induration in midsection.Left edge approx 1 cm open.Draining serous fluid.Packing removed. - Extremities Exam Extremities Exam: absent: Calf Tenderness - Back Exam Back Exam: absent: CVA tenderness (L), CVA tenderness (R) - Neurological Exam Neurological Exam: Alert, Awake, Oriented x3 - Psychiatric Exam Psychiatric exam: Normal Affect, Normal Mood - Skin Skin Exam: Normal Color Assessment and Plan (1) Chronic hypertension Assessment & Plan: Patient BP stable on labetalol and losartan Continue current management Status: Acute (2) History of renal disease Assessment & Plan: Neprology on board s/p renal ultrasound and 24 hour urine collection Status: Acute (3) Renal atrophy, left Assessment & Plan: nephrology on board patient on arb due to hx of hypertension and proteinuria creatinine stable continue to monitor closely Status: Acute (4) Wound infection following section, Assessment & Plan: drainage improved ID on board ESBL + coagulase negative staph wound cx Patient on meropenem-day 6.as per id patient need atleast 7 days of meropenem Vanco trough checked yesterday. Wound probed and approx 3 cm tunneling towards the right side.Wound cleaned with mix of normal saline and hydrogen peroxide.Wound packed with iodoform Wound care consult still being awaited Consider repeat ct scan tomorrow if patient continues to improve Status: Acute
[2016-12-22] MEDS: Vancomycin 1 gm/NS 200 ml 1 GM/200 ML BAG IVPB SCH (12:49)
[2016-12-23] MEDS: Meropenem 500 MG in Sodium Chloride 0.9% 100 ML IVPB SCH ×3 (01:45→17:41)
--- NOTE | 2016-12-23 06:46 | CP.PCM.PN ---
<Amna Sena - Last Filed: 12/23/16 06:43> Subjective - Date & Time of Evaluation Date of Evaluation: 12/23/16 Time of Evaluation: 06:44 - Subjective Subjective: Medicine Progress Note: Dr. Freddy Grimes was seen and examined at bedside in no acute distress. Patient was resting comfortably in bed. She states she has no complaints. Patient had a bowel movement yesterday. Patient denies chest pain, palpitations, abdominal pain, fevers, nausea, vomiting, and shortness of breath. Objective - Vital Signs/Intake and Output Vital Signs (last 24 hours): Temp Pulse Resp BP Pulse Ox 97.8 F 63 20 111/71 99 12/22/16 23:25 12/22/16 23:25 12/22/16 23:25 12/22/16 23:25 12/22/16 23:25 Intake and Output: 12/22/16 12/23/16 18:59 06:59 Intake Total 500 Balance 500 - Medications Medications: Current Medications Ferrous Sulfate (Feosol) 325 mg PO TID [facility] Last Admin: 12/22/16 17:21 Dose: 325 mg Meropenem 500 mg/ Sodium (Chloride) 100 mls @ 100 mls/hr IVPB Q8H [facility] Last Admin: 12/23/16 01:45 Dose: 100 mls/hr Vancomycin/Sodium Chloride (Vancocin) 1 gm in 200 mls @ 166.7 mls/hr IVPB Q24H [facility] Stop: 12/27/16 12:31 Last Admin: 12/22/16 12:49 Dose: 166.7 mls/hr Labetalol HCl (Trandate) 100 mg PO BID [facility] Last Admin: 12/22/16 17:21 Dose: 100 mg Losartan Potassium (Cozaar) 50 mg PO DAILY [facility] Last Admin: 12/22/16 10:11 Dose: 50 mg Saccharomyces Boulardii (Florastor) 250 mg PO BID [facility] Last Admin: 12/22/16 17:21 Dose: 250 mg - Labs Labs: 12/22/16 06:33 12/22/16 06:33 - Constitutional Appears: No Acute Distress - Head Exam Head Exam: NORMAL INSPECTION, NORMOCEPHALIC - Eye Exam Eye Exam: EOMI, Normal appearance - ENT Exam ENT Exam: Mucous Membranes Moist - Neck Exam Neck Exam: Normal Inspection - Respiratory Exam Respiratory Exam: Clear to Ausculation Bilateral, NORMAL BREATHING PATTERN. absent: Rhonchi, Wheezes - Cardiovascular Exam Cardiovascular Exam: REGULAR RHYTHM, +S1, +S2. absent: Murmur - GI/Abdominal Exam GI & Abdominal Exam: Soft, Normal Bowel Sounds - Extremities Exam Extremities Exam: Normal Inspection. absent: Calf Tenderness, Pedal Edema, Tenderness - Neurological Exam Neurological Exam: Alert, Awake, Oriented x3 - Psychiatric Exam Psychiatric exam: Normal Affect, Normal Mood - Skin Skin Exam: Dry, Intact, Normal Color, Warm Assessment and Plan (1) Wound infection following section, Assessment & Plan: Stable, afebrile * ESBL + coagulase negative staph wound cx * Continue Meropenem 500mg Q8H (day 7) and Vancomycin 1 gm daily * Per ID recommendations (Dr. Rod), Patient to complete total of 7 days of IV Merrem prior to discharge * Wound care on consult, will f/u recommendations * Encourage ambulation Status: Acute (2) Chronic hypertension Assessment & Plan: Stable BP range 127-146/80-90 Continue Losartan 50mg PO Daily, Labetalol 100 mg BID Status: Acute (3) History of renal disease Assessment & Plan: BUN 21 on admission; BUN 15 on 12/22/16 Cr 2.2 on admission; Cr 1.2 on 12/22/16 -->down trending Monitor renal function: Cr, BUN, Urine output Status: Acute (4) Anemia Assessment & Plan: Asymptomatic H/H stable - 9.5/27.8% H/H: 10.1/29.4 on 12/22/16 * Continue ferrous sulfate 325mg PO BID * F/U am labs Status: Chronic (5) Prophylactic measure Assessment & Plan: SCD Florastor 250mg PO BID Status: Acute <Alisa Hayes V - Last Filed: 12/25/16 16:14> Objective - Vital Signs/Intake and Output Vital Signs (last 24 hours): Temp Pulse Resp BP Pulse Ox 98.3 F 67 20 129/89 100 12/24/16 15:41 12/24/16 15:41 12/24/16 15:41 12/24/16 15:41 12/24/16 15:41 Intake and Output: 07/11/17 07/11/17 06:59 18:59 Intake Total 500 450 Balance 500 450 - Labs Labs: 12/24/16 07:14 12/25/16 07:08 Attending/Attestation - Attestation I have personally seen and examined this patient.: Yes I have fully participated in the care of the patient.: Yes I have reviewed all pertinent clinical information, including history, physical exam and plan: Yes Notes (Text): This is a late computer entry for 12/23/16. Patient seen, examined, and case discussed with day-time resident. Patient denies acute complaints. Patient's blood pressure controlled on current management. Infectious disease on board for ESBL+ culture. Nephrology on board for patient's history of chronic kidney disease. Primary management per ob-rail bonder.
[2016-12-23] MEDS: Saccharomyces Boulardi 250 mg Cap PO SCH ×2 (10:27→17:43)
--- NOTE | 2016-12-23 11:40 | CP.PCM.PN ---
Subjective - Date & Time of Evaluation Date of Evaluation: 12/23/16 Time of Evaluation: 11:40 - Subjective Subjective: Patient denies any pain.denies nausea, vomiting, headache, chest pain,shortness of breath, numbness or tingling in hands and feet Objective - Vital Signs/Intake and Output Vital Signs (last 24 hours): Temp Pulse Resp BP Pulse Ox 97.8 F 63 20 111/71 99 12/22/16 23:25 12/22/16 23:25 12/22/16 23:25 12/22/16 23:25 12/22/16 23:25 - Medications Medications: Current Medications Ferrous Sulfate (Feosol) 325 mg PO TID [facility] Last Admin: 12/23/16 10:27 Dose: 325 mg Meropenem 500 mg/ Sodium (Chloride) 100 mls @ 100 mls/hr IVPB Q8H [facility] Last Admin: 12/23/16 10:30 Dose: 100 mls/hr Vancomycin/Sodium Chloride (Vancocin) 1 gm in 200 mls @ 166.7 mls/hr IVPB Q24H [facility] Stop: 12/27/16 12:31 Last Admin: 12/22/16 12:49 Dose: 166.7 mls/hr Labetalol HCl (Trandate) 100 mg PO BID [facility] Last Admin: 12/23/16 10:27 Dose: 100 mg Losartan Potassium (Cozaar) 50 mg PO DAILY [facility] Last Admin: 12/23/16 10:27 Dose: 50 mg Saccharomyces Boulardii (Florastor) 250 mg PO BID [facility] Last Admin: 12/23/16 10:27 Dose: 250 mg - Labs Labs: 12/22/16 06:33 12/22/16 06:33 - Constitutional Appears: No Acute Distress - Respiratory Exam Respiratory Exam: Clear to Ausculation Bilateral, NORMAL BREATHING PATTERN - Cardiovascular Exam Cardiovascular Exam: REGULAR RHYTHM - GI/Abdominal Exam GI & Abdominal Exam: Soft, Normal Bowel Sounds. absent: Tenderness Additional comments: Incision-intact except for left lateral edge which is 1 cm open.induration in midsection of incision decreased now.Serous drainage blood mixed with no pus noted - Extremities Exam Extremities Exam: absent: Calf Tenderness - Neurological Exam Neurological Exam: Alert, Awake, Oriented x3 - Psychiatric Exam Psychiatric exam: Normal Affect, Normal Mood - Skin Skin Exam: Normal Color Assessment and Plan - Assessment and Plan (Free Text) Assessment: 1) Chronic hypertension Patient BP stable on labetalol and losartan Continue current management Status: Acute (2) History of renal disease Neprology on board s/p renal ultrasound and 24 hour urine collection (3) Renal atrophy, left nephrology on board patient on arb due to hx of hypertension and proteinuria creatinine stable complement c3 and c4 level normal continue to monitor closely will need folow up with nephro as outpatient (4) Wound infection following section, drainage improved ID on board ESBL + coagulase negative staph wound cx Patient on meropenem-day 7. Vanco trough checked yesterday.On vanco as per id Wound probed and approx 3 cm tunneling towards the right side.Wound cleaned with mix of normal saline and hydrogen peroxide.Wound packed with iodoform Wound care consult still being awaited repeat ct scan ordered Social service consult for assistance with home wound care
[2016-12-23] MEDS ORDERED: Iohexol 240 (50 ml) PO ONE (13:45)
[2016-12-23] MEDS: Vancomycin 1 gm/NS 200 ml 1 GM/200 ML BAG IVPB SCH (13:52)
[2016-12-23] MEDS ORDERED: Iodixanol 320 MG/ML 200 ML BOTTLE IV ONE (14:58)
[2016-12-24] MEDS: Meropenem 500 MG in Sodium Chloride 0.9% 100 ML IVPB SCH ×3 (02:00→17:32)
[2016-12-24 07:56] LABS: BASO # 0.1 K/uL (0.0-0.2); BASO % 1.5 % (0.0-2.0); EOS # 0.5 K/uL (0.0-0.7); EOS % 6.4 % (0.0-4.0); HEMOGLOBIN 10.6 g/dL (11.0-16.0); LYMPH # 2.3 K/uL (1.0-4.3); LYMPH % 26.9 % (20.0-40.0); MEAN CELL VOLUME 91.3 fL (81.0-99.0); MEAN CORPUSCULAR HEMOGLOBIN 30.3 pg (27.0-31.0); MEAN CORPUSCULAR HGB CONC 33.1 g/dL (33.0-37.0); MEAN PLATELET VOLUME 7.2 fL (7.2-11.7); MONO # 0.5 K/uL (0.0-0.8); MONO % 5.4 % (0.0-10.0); NEUT # 5.1 K/uL (1.8-7.0); NEUT % 59.8 % (50.0-75.0); RBC 3.49 Mil/uL (3.80-5.20); RED CELL DISTRIBUTION WIDTH 14.9 % (11.5-14.5); WHITE BLOOD COUNT 8.5 K/uL (4.8-10.8)
[2016-12-24 08:06] LABS: ALBUMIN 3.5 g/dL (3.5-5.0)
[2016-12-24 08:10] LABS: CALCIUM 9.3 mg/dl (8.6-10.4)
--- NOTE | 2016-12-24 09:03 | CT ---
PROCEDURE: CT Abdomen and Pelvis with contrast HISTORY: wound infection COMPARISON: None. TECHNIQUE: Contrast dose: 100 mL Visipaque 320 Radiation dose: Total exam DLP = 465.63 mGy-cm. This CT exam was performed using one or more of the following dose reduction techniques: Automated exposure control, adjustment of the mA and/or kV according to patient size, and/or use of iterative reconstruction technique. FINDINGS: LOWER THORAX: Unremarkable. LIVER: Unremarkable. No gross lesion or ductal dilatation. GALLBLADDER AND BILE DUCTS: Unremarkable. PANCREAS: Unremarkable. No gross lesion or ductal dilatation. SPLEEN: Unremarkable. ADRENALS: Unremarkable. No mass. KIDNEYS AND URETERS: Atrophic left kidney. Multiple tiny nonobstructing left renal calculi. Right mid to upper pole nonobstructing calculus, 15 mm measured from the coronal images. Multiple additional smaller nonobstructing right renal calculi. VASCULATURE: Unremarkable. No aortic aneurysm. BOWEL: Mural thickening of the sigmoid colon, nonspecific. This involves the rectum and sigmoid colon to the level of the descending/ sigmoid junction. Possible colitis. Please correlate. APPENDIX: Not identified. No secondary findings to suggest acute appendicitis. PERITONEUM: No ascites. No pneumoperitoneum. There is markedly decreased fluid and gas within the previously described anterior abdominal wall collection. In the wound, inferior to this collection, there is a small amount of high attenuation material and gas in the left side of the wound. This high attenuation may reflect acute blood or possibly packing material. Again, there is decreased fluid within the wound as compared to the prior CT examination. LYMPH NODES: Unremarkable. No enlarged lymph nodes. BLADDER: Nondistended REPRODUCTIVE: Unremarkable uterus. Heterogeneity in the left side of the uterus, inferiorly. Peripheral enhancement. Cannot rule out small uterine postoperative seroma. Also, this may reflect a small fibroid. Trace endometrial fluid. BONES: No acute fracture. OTHER FINDINGS: None. IMPRESSION: Decreasing fluid and gas within the rectus sheath/anterior abdominal wall collection noted previously on CT of 12/14/2016. Lower anterior abdominal incision with small amount of gas and high attenuation material on the left side of the incision which may reflect acute blood or packing material. Overall decreased fluid and gas within the incision compared to prior CT. Possible small seroma within the left lower anterior uterus versus uterine fibroid. Mild mural thickening of the rectosigmoid colon, possible colitis. Please correlate. Atrophic left kidney. Bilateral nonobstructing renal calculi.
[2016-12-24] MEDS: Saccharomyces Boulardi 250 mg Cap PO SCH ×2 (09:15→17:32)
--- NOTE | 2016-12-24 10:30 | CP.PCM.PN ---
Subjective - Date & Time of Evaluation Date of Evaluation: 12/24/16 Time of Evaluation: 10:00 - Subjective Subjective: Patient seen and examined at bedside. Patient is doing well, no complaints at this time. Per nursing no acute events overnight. Patient is ambulating and tolerating diet. Denies headaches, dizziness, nausea, vomiting, fevers, chills, CP, SOB, urinary symptoms, change in bowel habits Objective - Vital Signs/Intake and Output Vital Signs (last 24 hours): Temp Pulse Resp BP Pulse Ox 99.0 F 69 18 126/93 H 98 12/24/16 08:50 12/24/16 08:50 12/24/16 08:50 12/24/16 08:50 12/24/16 08:50 Intake and Output: 12/24/16 12/24/16 06:59 18:59 Intake Total 670 Balance 670 - Medications Medications: Current Medications Ferrous Sulfate (Feosol) 325 mg PO TID [facility] Last Admin: 12/24/16 09:14 Dose: 325 mg Meropenem 500 mg/ Sodium (Chloride) 100 mls @ 100 mls/hr IVPB Q8H [facility] Last Admin: 12/24/16 09:16 Dose: 100 mls/hr Vancomycin/Sodium Chloride (Vancocin) 1 gm in 200 mls @ 166.7 mls/hr IVPB Q24H [facility] Stop: 12/27/16 12:31 Last Admin: 12/23/16 13:52 Dose: 166.7 mls/hr Labetalol HCl (Trandate) 100 mg PO BID [facility] Last Admin: 12/24/16 09:18 Dose: 100 mg Losartan Potassium (Cozaar) 50 mg PO DAILY [facility] Last Admin: 12/24/16 09:14 Dose: 50 mg Saccharomyces Boulardii (Florastor) 250 mg PO BID [facility] Last Admin: 12/24/16 09:15 Dose: 250 mg - Labs Labs: 12/24/16 07:14 12/24/16 07:14 - Constitutional Appears: Well, No Acute Distress - Head Exam Head Exam: ATRAUMATIC, NORMAL INSPECTION - Eye Exam Eye Exam: EOMI, Normal appearance - ENT Exam ENT Exam: Mucous Membranes Moist - Respiratory Exam Respiratory Exam: Clear to Ausculation Bilateral, NORMAL BREATHING PATTERN - Cardiovascular Exam Cardiovascular Exam: REGULAR RHYTHM, +S1, +S2 - GI/Abdominal Exam GI & Abdominal Exam: Soft, Normal Bowel Sounds Additional comments: Incision: dressing and packing removed, wound cleaned with hydrogen peroxide and saline, approximately 10cc of serosanguinous fluid expressed, wound re- packed with iodoform, - Back Exam Back Exam: NORMAL INSPECTION - Neurological Exam Neurological Exam: Alert, Awake, Oriented x3 - Psychiatric Exam Psychiatric exam: Normal Affect, Normal Mood - Skin Skin Exam: Normal Color, Warm Assessment and Plan (1) Wound infection following section, Assessment & Plan: 1. Stable, afebrile 2. Wound cx: ESBL +, coagulase negative staph 3. On Merrem 500mg Q8H (day 8) and Vancomycin 1gm daily 4. Patient to take Bactrim x 7 days and follow up with surgical clinic upon discharge 5. ID on consult, f/u recommendations 6. Repeat CT scan 12/23: decreasing fluid and gas within rectus sheath/anterior abdominal wall collection previously noted on CT 12/14/16. Lower anterior abdominal incision with small amount of gas and high attenuation material on the L side of incision which may reflect acute blood or packing material. Overall decreasing fluid and gas within incision compared to prior CT 7. Continue daily packing changes 8. Spoke with Wound Care nurse this morning, will see patient this afternoon Status: Acute (2) Chronic hypertension Assessment & Plan: 1. BP 120-126/77-95 2. Continue Losartan 50mg daily, Labetalol 100mg BID 3. Medicine on consult, f/u recommendations Status: Acute (3) Anemia Assessment & Plan: 1. Hgb stable 10.6 2. Continue Ferrous sulfate 325mg BID Status: Chronic (4) Renal atrophy, left Assessment & Plan: 1. Proteinuria, on Losartan 50mg daily 2. Renal on consult, f/u recommendations 3. BUN/Cr - 20/1.4 today 4. Continue monitoring renal function 5. Will need outpatient renal f/u upon discharge Status: Acute
--- NOTE | 2016-12-24 11:20 | CP.PCM.PN ---
Subjective - Date & Time of Evaluation Date of Evaluation: 12/24/16 Time of Evaluation: 11:17 - Subjective Subjective: Alert; in NAD BP controlled Creat sl higher at 1.4 Feel better- no new complaint No n, v, CPs, SOB, f, chills Objective - Vital Signs/Intake and Output Vital Signs (last 24 hours): Temp Pulse Resp BP Pulse Ox 99.0 F 69 18 126/93 H 98 12/24/16 08:50 12/24/16 08:50 12/24/16 08:50 12/24/16 08:50 12/24/16 08:50 Intake and Output: 12/24/16 12/24/16 06:59 18:59 Intake Total 670 Balance 670 - Medications Medications: Current Medications Ferrous Sulfate (Feosol) 325 mg PO TID [facility] Last Admin: 12/24/16 09:14 Dose: 325 mg Meropenem 500 mg/ Sodium (Chloride) 100 mls @ 100 mls/hr IVPB Q8H [facility] Last Admin: 12/24/16 09:16 Dose: 100 mls/hr Vancomycin/Sodium Chloride (Vancocin) 1 gm in 200 mls @ 166.7 mls/hr IVPB Q24H [facility] Stop: 12/27/16 12:31 Last Admin: 12/23/16 13:52 Dose: 166.7 mls/hr Labetalol HCl (Trandate) 100 mg PO BID [facility] Last Admin: 12/24/16 09:18 Dose: 100 mg Losartan Potassium (Cozaar) 50 mg PO DAILY [facility] Last Admin: 12/24/16 09:14 Dose: 50 mg Saccharomyces Boulardii (Florastor) 250 mg PO BID [facility] Last Admin: 12/24/16 09:15 Dose: 250 mg - Labs Labs: 12/24/16 07:14 12/24/16 07:14 - Constitutional Appears: Non-toxic, No Acute Distress - Head Exam Head Exam: ATRAUMATIC, NORMAL INSPECTION - Eye Exam Eye Exam: EOMI, Normal appearance - Neck Exam Neck Exam: Normal Inspection. absent: Tenderness - Cardiovascular Exam Cardiovascular Exam: REGULAR RHYTHM, +S1 - GI/Abdominal Exam GI & Abdominal Exam: Soft. absent: Tenderness - Extremities Exam Extremities Exam: Normal Inspection. absent: Tenderness - Neurological Exam Neurological Exam: Alert, CN II-XII Intact - Skin Skin Exam: Dry, Warm Assessment and Plan (1) ELISA (acute kidney injury) Status: Acute (2) Chronic hypertension Status: Acute (3) Renal atrophy, left Status: Acute (4) Wound infection following section, Status: Acute (5) Escherichia coli (E. coli) infection Status: Acute - Assessment and Plan (Free Text) Plan: Same meds as BP controlled Repeat chemistries If creat increases will stop ARB
[2016-12-24] MEDS: Vancomycin 1 gm/NS 200 ml 1 GM/200 ML BAG IVPB SCH (12:30)
[2016-12-24 15:42] VITALS: BP 129/89; PULSE 67; RESP 20; TEMP 98.3; O2SAT 100
--- NOTE | 2016-12-24 20:25 | CP.PCM.PN ---
Subjective - Date & Time of Evaluation Date of Evaluation: 12/24/16 Time of Evaluation: 20:20 - Subjective Subjective: Medicine Progress note: Dr. Gandhi's Service Patient was seen and examined at bedside in no acute distress. Patient reports feeling well. Patient denies chest pain, palpitations, abdominal pain, nausea, vomiting, diarrhea, and shortness of breath. Patient is stable. Medicine is signing off. Please reconsult if necessary. Objective - Vital Signs/Intake and Output Vital Signs (last 24 hours): Temp Pulse Resp BP Pulse Ox 98.3 F 67 20 129/89 100 12/24/16 15:41 12/24/16 15:41 12/24/16 15:41 12/24/16 15:41 12/24/16 15:41 Intake and Output: 12/24/16 12/25/16 18:59 06:59 Intake Total 450 Balance 450 - Medications Medications: Current Medications Ferrous Sulfate (Feosol) 325 mg PO TID [facility] Last Admin: 12/24/16 17:32 Dose: 325 mg Meropenem 500 mg/ Sodium (Chloride) 100 mls @ 100 mls/hr IVPB Q8H [facility] Last Admin: 12/24/16 17:32 Dose: 100 mls/hr Vancomycin/Sodium Chloride (Vancocin) 1 gm in 200 mls @ 166.7 mls/hr IVPB Q24H [facility] Stop: 12/27/16 12:31 Last Admin: 12/24/16 12:30 Dose: 166.7 mls/hr Labetalol HCl (Trandate) 100 mg PO BID [facility] Last Admin: 12/24/16 17:32 Dose: 100 mg Losartan Potassium (Cozaar) 50 mg PO DAILY [facility] Last Admin: 12/24/16 09:14 Dose: 50 mg Saccharomyces Boulardii (Florastor) 250 mg PO BID [facility] Last Admin: 12/24/16 17:32 Dose: 250 mg - Labs Labs: 12/24/16 07:14 12/24/16 07:14 - Constitutional Appears: No Acute Distress - Head Exam Head Exam: NORMOCEPHALIC - Eye Exam Eye Exam: EOMI, Normal appearance - ENT Exam ENT Exam: Mucous Membranes Moist - Neck Exam Neck Exam: Full ROM, Normal Inspection - Respiratory Exam Respiratory Exam: Clear to Ausculation Bilateral, NORMAL BREATHING PATTERN. absent: Rhonchi, Wheezes - Cardiovascular Exam Cardiovascular Exam: REGULAR RHYTHM, +S1, +S2 - GI/Abdominal Exam GI & Abdominal Exam: Soft, Normal Bowel Sounds - Extremities Exam Extremities Exam: Full ROM, Normal Inspection - Neurological Exam Neurological Exam: Alert, Awake, Oriented x3 - Psychiatric Exam Psychiatric exam: Normal Affect, Normal Mood - Skin Skin Exam: Dry, Intact, Normal Color, Warm Assessment and Plan (1) Wound infection following section, Assessment & Plan: Stable, afebrile * ESBL + coagulase negative staph wound cx * Continue Meropenem 500mg Q8H (day 7) and Vancomycin 1 gm daily * Per ID recommendations (Dr. Rod), Patient to complete total of 7 days of IV Merrem prior to discharge * Wound care on consult, will f/u recommendations * Encourage ambulation Status: Acute (2) Chronic hypertension Assessment & Plan: Stable BP range 127-146/80-90 Continue Losartan 50mg PO Daily, Labetalol 100 mg BID Status: Acute (3) History of renal disease Assessment & Plan: BUN 21 on admission; BUN 15 on 12/22/16 Cr 2.2 on admission; Cr 1.2 on 12/22/16 -->down trending Continue management as per nephrology Status: Acute (4) Anemia Assessment & Plan: Asymptomatic H/H stable - 9.5/27.8% H/H: 10.1/29.4 on 12/22/16 H/H: 10.6/31.8 on 12/24/16 * Continue ferrous sulfate 325mg PO BID Status: Chronic (5) Prophylactic measure Assessment & Plan: SCD Florastor 250mg PO BID Status: Acute
--- NOTE | 2016-12-24 20:27 | CP.PCM.PN ---
Subjective - Date & Time of Evaluation Date of Evaluation: 12/24/16 Time of Evaluation: 12:40 - Subjective Subjective: Hospitalist Consult Note (Patient was seen and examined at 12:40 PM 12/24/16 Room 654) Medicine Team was consulted for managment of blood pressure in this 36 Female who is S/P and subsequently developed a surgical wound infection that is ESBL (+) Coagulase Negative Staph. Infections Disease is following the patient concerning this issue. Currently Upon FULL ROS there is NO chest pain, NO palpitations, NO SOB/Cough/ Wheezing, NO abdominal pain (some soreness at surgical site), NO n/v/d/c, NO burning/pain with urination, NO lightheadedness/dizziness, NO headache, NO new changes in vision, NO new changes in hearing, NO edema, NO paresthesias Exam: HEENT: NCA, EOMI, PERRLA, NO thyromegaly, NO lymphadenopathy, NO pharyngeal erythema/exudate Cardio: NS1 and NS2, NO M/R/G Resp: CTA B/L, NO R/R/W GI: BSx4, Soft, Distended, Surgical Site with clean bandage, NT, NO guarding/ rebound tenderness\ Ext: Pulses are strong and equal, Capillary Refill is 2 seconds, NO edema Neuro: CN II through XII are grossly intact Assessment and Plan: 1). HTN It is controlled on Losartan 50 mg PO 1x/day and Labetalol 100 mg PO 2x/day Rx for these 2 medications were left in patient chart by the weekend medicine team PATIENT SHOULD NOT BREAST FEET LOSARTAN IS UNCERTAIN WHETHER IT IS EXCRETED IN THE BREAST MILK. Medicine Team is signing off. If there are further questions please give us a call. Thank You Eliud Gandhi D.O. Objective - Vital Signs/Intake and Output Vital Signs (last 24 hours): Temp Pulse Resp BP Pulse Ox 98.3 F 67 20 129/89 100 12/24/16 15:41 12/24/16 15:41 12/24/16 15:41 12/24/16 15:41 12/24/16 15:41 Intake and Output: 12/24/16 12/25/16 18:59 06:59 Intake Total 450 Balance 450 - Medications Medications: Current Medications Ferrous Sulfate (Feosol) 325 mg PO TID [facility] Last Admin: 12/24/16 17:32 Dose: 325 mg Meropenem 500 mg/ Sodium (Chloride) 100 mls @ 100 mls/hr IVPB Q8H [facility] Last Admin: 12/24/16 17:32 Dose: 100 mls/hr Vancomycin/Sodium Chloride (Vancocin) 1 gm in 200 mls @ 166.7 mls/hr IVPB Q24H [facility] Stop: 12/27/16 12:31 Last Admin: 12/24/16 12:30 Dose: 166.7 mls/hr Labetalol HCl (Trandate) 100 mg PO BID [facility] Last Admin: 12/24/16 17:32 Dose: 100 mg Losartan Potassium (Cozaar) 50 mg PO DAILY [facility] Last Admin: 12/24/16 09:14 Dose: 50 mg Saccharomyces Boulardii (Florastor) 250 mg PO BID [facility] Last Admin: 12/24/16 17:32 Dose: 250 mg - Labs Labs: 12/24/16 07:14 12/24/16 07:14
[2016-12-25] MEDS: Meropenem 500 MG in Sodium Chloride 0.9% 100 ML IVPB SCH ×2 (02:22→09:10)
[2016-12-25 07:40] LABS: ALBUMIN 3.4 g/dL (3.5-5.0)
[2016-12-25 07:44] LABS: CALCIUM 9.2 mg/dl (8.6-10.4)
[2016-12-25] MEDS: Saccharomyces Boulardi 250 mg Cap PO SCH (09:45)
[2016-12-25] MEDS: Vancomycin 1 gm/NS 200 ml 1 GM/200 ML BAG IVPB SCH (11:59)
--- NOTE | 2016-12-25 12:11 | CP.PCM.PN ---
Subjective - Date & Time of Evaluation Date of Evaluation: 12/25/16 Time of Evaluation: 12:10 - Subjective Subjective: seen and examined no complaints for dc today Objective - Vital Signs/Intake and Output Vital Signs (last 24 hours): Temp Pulse Resp BP Pulse Ox 98.3 F 67 20 129/89 100 12/24/16 15:41 12/24/16 15:41 12/24/16 15:41 12/24/16 15:41 12/24/16 15:41 Intake and Output: 12/25/16 12/25/16 06:59 18:59 Intake Total 500 Balance 500 - Medications Medications: Current Medications Ferrous Sulfate (Feosol) 325 mg PO TID [facility] Last Admin: 12/25/16 09:45 Dose: 325 mg Meropenem 500 mg/ Sodium (Chloride) 100 mls @ 100 mls/hr IVPB Q8H [facility] Last Admin: 12/25/16 09:10 Dose: 100 mls/hr Vancomycin/Sodium Chloride (Vancocin) 1 gm in 200 mls @ 166.7 mls/hr IVPB Q24H [facility] Stop: 12/27/16 12:31 Last Admin: 12/25/16 11:59 Dose: 166.7 mls/hr Labetalol HCl (Trandate) 100 mg PO BID [facility] Last Admin: 12/25/16 09:46 Dose: 100 mg Losartan Potassium (Cozaar) 50 mg PO DAILY [facility] Last Admin: 12/25/16 09:45 Dose: 50 mg Saccharomyces Boulardii (Florastor) 250 mg PO BID [facility] Last Admin: 12/25/16 09:45 Dose: 250 mg - Labs Labs: 12/24/16 07:14 12/25/16 07:08 - Constitutional Appears: Non-toxic, No Acute Distress - Head Exam Head Exam: NORMAL INSPECTION - Eye Exam Eye Exam: Normal appearance - ENT Exam ENT Exam: Mucous Membranes Moist, Normal Exam - Neck Exam Neck Exam: Normal Inspection - Respiratory Exam Respiratory Exam: Clear to Ausculation Bilateral, NORMAL BREATHING PATTERN - Cardiovascular Exam Cardiovascular Exam: REGULAR RHYTHM, RRR - GI/Abdominal Exam GI & Abdominal Exam: Distended, Soft - Extremities Exam Extremities Exam: Normal Inspection Assessment and Plan (1) ELISA (acute kidney injury) Status: Acute (2) Chronic hypertension Status: Acute (3) Renal atrophy, left Status: Acute (4) Wound infection following section, Status: Acute - Assessment and Plan (Free Text) Assessment: creatinine stable on losartan 2.4 g proteinuria. maintain arb outpatient follow up w/ labs
--- NOTE | 2016-12-25 18:35 | CP.PCM.DIS ---
Provider - Provider Date of Admission: 12/14/16 11:43 Attending physician: Eliud Gandhi MD Consults: Nephrology was consulted Medicine was consulted Time Spent in preparation of Discharge (in minutes): 45 Diagnosis - Discharge Diagnosis (1) Wound infection following section, Status: Acute (2) Chronic hypertension Status: Acute (3) Anemia Status: Chronic (4) Renal atrophy, left Status: Acute Hospital Course - Lab Results Lab Results: Most Recent Lab Values WBC 8.5 K/uL (4.8-10.8) 12/24/16 07:14 RBC 3.49 Mil/uL (3.80-5.20) L 12/24/16 07:14 Hgb 10.6 g/dL (11.0-16.0) L 12/24/16 07:14 Hct 31.8 % (34.0-47.0) L 12/24/16 07:14 MCV 91.3 fL (81.0-99.0) 12/24/16 07:14 MCH 30.3 pg (27.0-31.0) 12/24/16 07:14 MCHC 33.1 g/dL (33.0-37.0) 12/24/16 07:14 RDW 14.9 % (11.5-14.5) H 12/24/16 07:14 Plt Count 426 K/uL (130-400) H 12/24/16 07:14 MPV 7.2 fL (7.2-11.7) 12/24/16 07:14 Neut % (Auto) 59.8 % (50.0-75.0) 12/24/16 07:14 Lymph % (Auto) 26.9 % (20.0-40.0) 12/24/16 07:14 [place] % (Auto) 5.4 % (0.0-10.0) 12/24/16 07:14 Eos % (Auto) 6.4 % (0.0-4.0) H 12/24/16 07:14 Baso % (Auto) 1.5 % (0.0-2.0) 12/24/16 07:14 Neut # 5.1 K/uL (1.8-7.0) 12/24/16 07:14 Lymph # 2.3 K/uL (1.0-4.3) 12/24/16 07:14 [place] # 0.5 K/uL (0.0-0.8) 12/24/16 07:14 Eos # 0.5 K/uL (0.0-0.7) 12/24/16 07:14 Baso # 0.1 K/uL (0.0-0.2) 12/24/16 07:14 Neutrophils % (Manual) 85 % (50-75) H 12/14/16 07:04 Band Neutrophils % 7 % (0-2) H 12/14/16 07:04 Lymphocytes % (Manual) 2 % (20-40) L 12/14/16 07:04 Monocytes % (Manual) 4 % (0-10) 12/14/16 07:04 Eosinophils % (Manual) 2 % (0-4) 12/14/16 07:04 Platelet Estimate Normal (NORMAL) 12/14/16 07:04 Basophilic Stippling Slight 12/14/16 07:04 pO2 50 mm/Hg (30-55) 12/14/16 09:20 VBG pH 7.39 (7.32-7.43) 12/14/16 09:20 VBG pCO2 30 mmHg (40-60) L 12/14/16 09:20 VBG HCO3 20.2 mmol/L 12/14/16 09:20 VBG Total CO2 19.1 mmol/L (22-28) L 12/14/16 09:20 VBG O2 Sat (Calc) 93.0 % (40-65) H 12/14/16 09:20 VBG Base Excess -5.6 mmol/L (0.0-2.0) L 12/14/16 09:20 VBG Potassium 4.3 mmol/L (3.6-5.2) 12/14/16 09:20 Sodium 127.0 mmol/l (132-148) L 12/14/16 09:20 Chloride 104.0 mmol/L (98-107) 12/14/16 09:20 Glucose 92 mg/dl (65-105) 12/14/16 09:20 Lactate 0.7 mmol/L (0.7-2.1) 12/14/16 09:20 Sodium 137 mmol/L (132-148) 12/25/16 07:08 Potassium 4.7 mmol/L (3.6-5.2) 12/25/16 07:08 Chloride 106 mmol/L (98-107) 12/25/16 07:08 Carbon Dioxide 21 mmol/L (22-30) L 12/25/16 07:08 Anion Gap 15 (10-20) 12/25/16 07:08 BUN 18 mg/dL (7-17) H 12/25/16 07:08 Creatinine 1.3 MG/DL (0.7-1.2) H 12/25/16 07:08 Est GFR ( Amer) 55 12/25/16 07:08 Est GFR (Non-Af Amer) 46 12/25/16 07:08 Random Glucose 87 mg/dL (65-105) 12/25/16 07:08 Calcium 9.2 mg/dl (8.6-10.4) 12/25/16 07:08 Phosphorus 4.0 mg/dL (2.5-4.5) 12/24/16 07:14 Magnesium 2.0 mg/dL (1.6-2.3) 12/24/16 07:14 Total Bilirubin 0.4 mg/dL (0.2-1.3) 12/25/16 07:08 AST 22 U/L (14-36) 12/25/16 07:08 ALT 39 U/L (9-52) 12/25/16 07:08 Alkaline Phosphatase 174 U/L (38-126) H 12/25/16 07:08 Total Protein 6.8 g/dL (6.3-8.3) 12/25/16 07:08 Albumin 3.4 g/dL (3.5-5.0) L 12/25/16 07:08 Globulin 3.5 gm/dL (2.2-3.9) 12/25/16 07:08 Albumin/Globulin Ratio 1.0 (1.0-2.1) 12/25/16 07:08 Venous Blood Potassium 4.3 mmol/L (3.6-5.2) 12/14/16 09:20 Urine Color Straw (YELLOW) 12/19/16 17:09 Urine Clarity Clear (Clear) 12/19/16 17:09 Urine pH 7.0 (5.0-8.0) 12/19/16 17:09 Ur Specific [place] 1.003 (1.003-1.030) 12/19/16 17:09 Urine Protein 1+ mg/dL (NEGATIVE) H 12/19/16 17:09 Urine Glucose (UA) Normal mg/dL (Normal) 12/19/16 17:09 Urine Ketones Negative mg/dL (NEGATIVE) 12/19/16 17:09 Urine Blood Negative (NEGATIVE) 12/19/16 17:09 Urine Nitrate Negative (NEGATIVE) 12/19/16 17:09 Urine Bilirubin Negative (NEGATIVE) 12/19/16 17:09 Urine Urobilinogen Normal mg/dL (0.2-1.0) 12/19/16 17:09 Ur Leukocyte Esterase Neg Wilfred/uL (Negative) 12/19/16 17:09 Urine WBC (Auto) 2 /hpf (0-5) 12/19/16 17:09 Urine RBC (Auto) < 1 /hpf (0-3) 12/19/16 17:09 Ur Squamous Epith Cells 1 /hpf (0-5) 12/14/16 07:20 Urine Bacteria Rare (<OCC) 12/14/16 07:20 Ur Random Creatinine 43.8 mg/dL 12/19/16 10:31 Ur Random Sodium 67 mmol/L 12/19/16 10:31 Urine Collection Time 24 HRS 12/20/16 18:55 Urine Total Volume 3500 mL 12/20/16 18:55 Ur Protein 24 Hr Calc 2485.0 mg/24hr (42-225) H 12/20/16 18:55 Vancomycin Trough 12.9 ug/mL (5.0-10.0) H 12/24/16 07:14 Random Vancomycin 12.96 ug/mL 12/15/16 06:20 XAVIER 6 Profile Negative (NEGATIVE) 12/22/16 06:33 Complement C3 146.0 mg/dL (88.0-165.0) 12/22/16 06:33 Complement C4 31.2 mg/dL (14.0-44.0) 12/22/16 06:33 - Hospital Course Hospital Course: Patient is a 36 year old with pmhx of chronic HTN and renal disease, s/ p emergent c/s 12/02/16 presented to the ED c/o vomiting which caused her C/S incision to open up. Pt noted there was bleeding and odor from the area. Pt also stated that she had a fever the night prior to arrival. Pt had a c/s at [facility] for severe preeclampsia and admitted in ICU post delivery. Pt has been following with dr jacobo in [facility] who started her on bactrim on saturday. Patient was admitted to the hospital and started on antibiotics for sepsis. CT abd/pelvis showed Curvilinear collection within the rectus sheath containing both low attenuation material and gas as well as a small amount of high attenuation material. Possible postoperative collection/ hematoma versus infected collection. Multiple bilateral nonobstructing renal calculi. Severe left renal atrophy. Incision was erythematous, redness noted on left side 2 cm opened and serosanguis fluid coming, fasia intact. ID was consulted and on the case. Wound cultures were collected and grew ESBL + and coagulase negative staph. Patient initially was started on Zosyn but it was discontinued and started on Merrem and Vancomycin. During hospital stay incision was expressed, packing/dressing was changed daily. Pt was found to have elevated BPs during her stay, BP medication was started and medicine was consulted. BPs were well controlled prior to discharge. Repeat CT scan showed decreasing fluid collection and gas at the incision. Patient Cr was elevated during admission. Renal was consulted and recommended Renal US which showed bilateral renal calculi, 1.2 cm R lower pole renal cyst, asymmetry of renal size. 24 hour urine protein was collected, patient was found to have proteinuria. CMP was trended, and Cr improved. Patient to follow up with Nephrology as an outpatient. Wound care was consulted during hospital stay however currently no documentation of visit, Patient was instructed to follow up with [facility] clinic for wound care and dressing change. Patient was cleared for ID and medicine prior to discharge. Patient to continue taking Bactrim x 7 days upon discharge. Also was given prescriptions for Labetalol 100mg BID and Losartan 50mg daily. Patient was also seen by public health social worker during this stay. All questions and concerns were answered prior to discharge. Discharge Exam - Head Exam Head Exam: NORMAL INSPECTION - Eye Exam Eye Exam: EOMI, Normal appearance, PERRL - ENT Exam ENT Exam: Mucous Membranes Moist - Neck Exam Neck exam: Full Rom - Respiratory Exam Respiratory Exam: Clear to PA & Lateral, NORMAL BREATHING PATTERN, UNREMARKABLE - Cardiovascular Exam Cardiovascular Exam: REGULAR RHYTHM, +S1, +S2 - GI/Abdominal Exam GI & Abdominal Exam: Normal Bowel Sounds Additional comments: incision - wound dressing and packing removed, wound cleaned with normal saline , repacked with iodoform. - Extremities Exam Extremities exam: normal inspection, pedal pulses present - Back Exam Back exam: NORMAL INSPECTION - Neurological Exam Neurological exam: Alert, CN II-XII Intact, Oriented x3 - Psychiatric Exam Psychiatric exam: Normal Affect, Normal Mood - Skin Skin Exam: Normal Color, Warm Discharge Plan - Discharge Medications Prescriptions: Amoxicillin/Clavulanate [Augmentin 875 MG-125 MG] 1 tab PO BID #14 tab Labetalol [Trandate] 100 mg PO BID #60 tab Losartan [Cozaar] 50 mg PO DAILY #30 tab Metronidazole [Flagyl] 500 mg PO BID #14 tab Sulfamethoxazole/Trimethoprim [Bactrim DS 800 mg-160 mg] 1 tab PO BID #14 tab - Follow Up Plan Condition: STABLE Disposition: HOME/ ROUTINE Instructions: Sulfamethoxazole/Trimethoprim (By mouth), Labetalol (By mouth), Losartan (By mouth), Wound Infection (DC), Acute Wound Care (DC) Additional Instructions: Patient to continue Bactrim x 7 days and follow up in OB clinic tomorrow for wound care Referrals: [facility] [Outside]
== END 2016-12-25 13:41 | disposition home or self-care (01) | DRG 376 ==
LOC: C.ER 05:29 → C.9E 11:43 → C.4M 12:03 → C.9E 12:20 → C.6T 12:45
PROVIDERS: ADMIT Obstetrics & Gynecology; ATTEND Family Medicine
DX: O86.0 Infection of obstetric surgical wound (principal); O85 Puerperal sepsis; O90.4 Postpartum acute kidney failure; N17.9 Acute kidney failure, unspecified; N18.9 Chronic kidney disease, unspecified; O99.03 Anemia complicating the puerperium; N20.0 Calculus of kidney; O90.0 Disruption of cesarean delivery wound; O10.03 Pre-existing essential hypertension complicating the puerperium; B95.7 Other staphylococcus as the cause of diseases classified elsewhere; Z16.12 Extended spectrum beta lactamase (ESBL) resistance; I12.9 Hypertensive chronic kidney disease with stage 1 through stage 4 chronic kidney disease, or unspecified chronic kidney disease; Z87.440 Personal history of urinary (tract) infections; Z87.442 Personal history of urinary calculi; Z90.49 Acquired absence of other specified parts of digestive tract

== ENCOUNTER 2017-10-24 09:08 | Emergency (ER) | payer OTHER ==
[2017-10-24 09:37] VITALS: BMI 25.9
[2017-10-24] MEDS ORDERED: Sodium Chloride 0.9% 1,000 ML IV ONE (10:20)
[2017-10-24 10:48] LABS: BASO # 0.1 K/uL (0.0-0.2); BASO % 1.3 % (0.0-2.0); EOS # 0.3 K/uL (0.0-0.7); EOS % 3.4 % (0.0-4.0); HEMOGLOBIN 13.5 g/dL (11.0-16.0); LYMPH % 34.1 % (20.0-40.0); MEAN CELL VOLUME 89.7 fL (81.0-99.0); MEAN CORPUSCULAR HEMOGLOBIN 31.9 pg (27.0-31.0); MEAN CORPUSCULAR HGB CONC 35.6 g/dL (33.0-37.0); MEAN PLATELET VOLUME 8.8 fL (7.2-11.7); MONO # 0.4 K/uL (0.0-0.8); MONO % 4.2 % (0.0-10.0); RBC 4.23 Mil/uL (3.80-5.20); RED CELL DISTRIBUTION WIDTH 13.1 % (11.5-14.5); WHITE BLOOD COUNT 8.8 K/uL (4.8-10.8)
[2017-10-24] MEDS ORDERED: Sodium Chloride 0.9% 1,000 ML ONE (10:50)
[2017-10-24 10:51] LABS: HCG,QUALITATIVE URINE NEGATIVE (NEGATIVE)
[2017-10-24 10:55] LABS: SQUAMOUS EPITHIAL 1 /hpf (0-5); URINE BILIRUBIN NEGATIVE (NEGATIVE); URINE BLOOD NEGATIVE (NEGATIVE); URINE CLARITY Clear (Clear); URINE COLOR Straw (YELLOW); URINE GLUCOSE (UA) NORMAL (Normal); URINE LEUKOCYTE ESTERASE NEG Leu/uL (Negative); URINE PROTEIN NEGATIVE (NEGATIVE); URINE UROBILINOGEN NORMAL mg/dL (0.2-1.0)
--- NOTE | 2017-10-24 10:56 | C.PDOC ---
History Of Present Illness 37 y/o female with History of Kidney stones presents to ED with c/o right lower back radiating to low abdominal worsening for 4 days with associated dysuria and chills. Patient states she took 2 Tylenol pills at 3am this morning which resolved chills but pain persisted which prompted visit to ED. Patient denies nausea, vomiting, hematuria or diarrhea. Time Seen by Provider: 10/24/17 10:12 Chief Complaint (Nursing): Abdominal Pain History Per: Patient History/Exam Limitations: no limitations Onset/Duration Of Symptoms: Days Current Symptoms Are (Timing): Still Present Location Of Pain/Discomfort: Suprapubic Radiation Of Pain To:: Back Past Medical History Reviewed: Historical Data, Nursing Documentation, Vital Signs Vital Signs: Last Vital Signs Temp 98.8 F 10/24/17 13:26 Pulse 69 10/24/17 13:26 Resp 17 10/24/17 13:26 BP 120/80 10/24/17 13:26 Pulse Ox 99 10/24/17 13:56 - Medical History PMH: Gall Bladder Disease, Kidney Stones, Chronic Kidney Disease Surgical History: Appendectomy, Cholecystectomy - [facility] Procedures EXCISION OF ABDOMINAL WALL, OPEN APPROACH (11/10/15) EXCISION OF LEFT KIDNEY, PERCUTANEOUS ENDOSCOPIC APPROACH (04/16/16) LOW CERVICAL (10/29/14) OTH LYSIS-PERITONEAL ADHES (10/29/14) REPAIR ABDOMINAL WALL, OPEN APPROACH (11/10/15) Family History: States: No Known Family Hx - Social History Hx Tobacco Use: No Hx Alcohol Use: No Hx Substance Use: No - Immunization History Hx Tetanus Toxoid Vaccination: No Hx Influenza Vaccination: Yes (2017) Hx Pneumococcal Vaccination: No Review Of Systems Constitutional: Positive for: Chills. Negative for: Fever Gastrointestinal: Positive for: Abdominal Pain. Negative for: Nausea, Vomiting Genitourinary: Positive for: Dysuria. Negative for: Hematuria Musculoskeletal: Positive for: Back Pain Skin: Negative for: Rash Physical Exam - Physical Exam Appears: Non-toxic, No Acute Distress Skin: Warm, Dry, No Rash Head: Atraumatic, Normacephalic Eye(s): bilateral: Normal Inspection Oral Mucosa: Moist Neck: Normal ROM, Supple Cardiovascular: Rhythm Regular Respiratory: Normal Breath Sounds, No Rales, No Rhonchi, No Wheezing Gastrointestinal/Abdominal: Soft, Tenderness (Suprapubic), No Guarding, No Rebound Back: Normal Inspection, No CVA Tenderness Extremity: Bilateral: Atraumatic, Normal ROM Neurological/Psych: Oriented x3, Normal Speech Gait: Steady ED Course And Treatment - Laboratory Results Result Diagrams: 10/24/17 10:42 10/24/17 10:42 O2 Sat by Pulse Oximetry: 99 (RA) Pulse Ox Interpretation: Normal - CT Scan/US CT abd/pelvis Other Rad Studies (CT/US): Read By Radiologist, Radiology Report Reviewed CT/US Interpretation: PROCEDURE: CT abdomen pelvis dated 10/24/2017. HISTORY: Right flank pain radiating to groin. COMPARISON: Comparison made with prior study 01/21/2017. TECHNIQUE: Contiguous axial images of the abdomen and pelvis performed without oral or intravenous contrast material. Additional 2D sagittal and coronal reformats generated. This CT exam was performed using one or more of the following dose reduction techniques: Automated exposure control, adjustment of the mA and/or kV according to patient size, and/or use of iterative reconstruction technique. Radiation dose: Total exam DLP = 729.5 mGy -cm. FINDINGS: LOWER THORAX: The lung bases clear. No infiltrate effusion or basilar pneumothorax. There is tiny hiatal hernia. Heart size normal. No significant pericardial effusion. LIVER: Liver exhibits normal size measuring approximately 17.2 cm in CC dimension. No obvious hepatic mass or collection seen on this noncontrast study. GALLBLADDER AND BILE DUCTS: Gallbladder is not visualized . Clinical correlation with surgical history. PANCREAS: Unremarkable. No mass. No ductal dilatation. SPLEEN: Unremarkable. No splenomegaly. ADRENALS: . There are no adrenal lesions. KIDNEYS AND URETERS: The left kidney is atrophic with scattered calcifications. The right kidney is compensatory enlarged. There are multiple scattered calcifications throughout the right kidney. There is prominent the right extrarenal pelvis the prominence of the proximal right ureter to the level of the UPJ region. The mid and distal right ureter does not appear significantly dilated so far as can be seen. No obvious ureteral calculi. Rule out recently passed calculus. Correlation with urinalysis is recommended. There are several low-attenuation foci scattered throughout the right kidney likely representing cysts. There is also in elliptical shaped represent of hyperdense focus lower pole right kidney that measures approximately 8.6 mm adjacent to a small cyst. Rule out chronic scarring, hyperdense cyst versus solid lesion. Follow-up of ultrasound may be of some benefit for further evaluation to exclude solid component. BLADDER: Urinary bladder is physiologically distended. No evidence of intraluminal urinary bladder calculi. REPRODUCTIVE: In situ Copper-T IUD. APPENDIX: Normal-appearing appendix best seen on coronal image number [id number]. BOWEL: Evaluation of the bowel is limited due to the lack of oral contrast material. The stomach is incompletely distended which presumably accounts for thick- walled appearance. Visualized loops of small bowel exhibit normal contour and caliber. No evidence of acute mechanical small bowel obstruction. Stool and air seen throughout the large bowel. No definitive evidence of mural wall thickening. PERITONEUM: Unremarkable. No fluid collection. No free air. Small fat containing umbilical hernia. LYMPH NODES: Unremarkable. No enlarged lymph nodes. VASCULATURE: No evidence of aortic or iliac artery aneurysm. BONES: No acute compression fractures nor retropulsed fragments. Mild multilevel degenerative spondylosis of the lower thoracic and to a lesser degree lumbar spine. OTHER FINDINGS: None. IMPRESSION: Atrophic left kidney with scattered calcifications. Right kidney is compensatory enlarged and contains multiple scattered calcifications. Prominent right extrarenal pelvis and proximal ureter though the mid distal ureter does not appear dilated of. No definitive evidence of ureteral calculi however would rule out recently passed calculus. Correlation with urinalysis. . In addition, there are several low- attenuation foci scattered throughout the right kidney likely representing cysts. There is also in elliptical shaped represent of hyperdense focus lower pole right kidney that measures approximately 8.6 mm adjacent to a small cyst. Rule out chronic scarring, hyperdense cyst versus solid lesion. . Follow-up of ultrasound may be of some benefit for further evaluation to exclude solid component. Small hiatal hernia. Medical Decision Making Medical Decision Making: Impression: Flank pain radiates to groin, likely kidney stone Plan: CT abd/pelvis, IV fluids, Urinalysis and urine Culture Progress: Labs reviewed and unremarkable UA shows no blood or infection CT A/P shows Atrophic left kidney with scattered calcifications, seen previously on other CT. Right kidney is compensatory enlarged and contains multiple scattered calcifications. Prominent right extrarenal pelvis and proximal ureter though the mid distal ureter does not appear dilated. No definitive evidence of ureteral calculi however would rule out recently passed calculus. In addition, there are several low-attenuation foci scattered throughout the right kidney likely representing cysts. There is also in elliptical shaped represent of hyperdense focus lower pole right kidney that measures approximately 8.6 mm adjacent to a small cyst. Rule out chronic scarring, hyperdense cyst versus solid lesion. . Follow-up of ultrasound may be of some benefit for further evaluation to exclude solid component. Patient was re-evaluated and reported feeling better, pain had improved. I discussed results with patient and she was aware of having "kidney problems" from prior infections and stones. I informed her of renal cysts and calcifications and the need for follow up; will need US and possible specialist consult. Patient expressed understanding. She is stable for discharge. Rx was given. Disposition Counseled Patient/Family Regarding: Studies Performed, Diagnosis, Need For Followup, Rx Given - Disposition Referrals: Dianne Blanco MD [Staff Provider] - Disposition: HOME/ ROUTINE Disposition Time: 13:26 Condition: GOOD Additional Instructions: La tomografa computarizada muestra quistes y clculos renales derechos y atrofia renal izquierda Es importante que kamron un seguimiento con el urlogo y patricia mdico Vaya a la clnica para obtener ms thony sweeneyica Prescriptions: Ibuprofen [Motrin] 600 mg PO Q8 #30 tab Instructions: Renal Colic (DC) Forms: [employer] (Thai) Print Language: JAPANESE - POA Present On Arrival: None - Clinical Impression Clinical Impression: Renal atrophy, left, Renal colic on right side, Renal cyst - PA / USED [employer] 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 - Scribe Statement The provider has reviewed the documentation as recorded by the Susanne Estrada All medical record entries made by the Susanne were at my direction and personally dictated by me. I have reviewed the chart and agree that the record accurately reflects my personal performance of the history, physical exam, medical decision making, and the department course for this patient. I have also personally directed, reviewed, and agree with the discharge instructions and disposition.
[2017-10-24 10:59] LABS: ALB/GLOB RATIO 1.1 (1.0-2.1); ALBUMIN 4.2 g/dL (3.5-5.0); ALT/SGPT 38 U/L (9-52); AST/SGOT 26 U/L (14-36); BLOOD UREA NITROGEN 12 mg/dL (7-17); CALCIUM 9.7 mg/dl (8.6-10.4); GFR AFRICAN-AMERICAN > 60; GFR NON-AFRICAN AMERICAN 55; LIPASE 109 U/L (23-300)
--- NOTE | 2017-10-24 12:43 | CT ---
PROCEDURE: CT abdomen pelvis dated 10/24/2017. HISTORY: Right flank pain radiating to groin COMPARISON: Comparison made with prior study 01/21/2017. TECHNIQUE: Contiguous axial images of the abdomen and pelvis performed without oral or intravenous contrast material. Additional 2D sagittal and coronal reformats generated. This CT exam was performed using one or more of the following dose reduction techniques: Automated exposure control, adjustment of the mA and/or kV according to patient size, and/or use of iterative reconstruction technique. Radiation dose: Total exam DLP = 729.5 mGy-cm FINDINGS: LOWER THORAX: The lung bases clear. No infiltrate effusion or basilar pneumothorax. There is tiny hiatal hernia. Heart size normal. No significant pericardial effusion. LIVER: Liver exhibits normal size measuring approximately 17.2 cm in CC dimension. No obvious hepatic mass or collection seen on this noncontrast study GALLBLADDER AND BILE DUCTS: Gallbladder is not visualized . Clinical correlation with surgical history. PANCREAS: Unremarkable. No mass. No ductal dilatation. SPLEEN: Unremarkable. No splenomegaly. ADRENALS: . There are no adrenal lesions. KIDNEYS AND URETERS: The left kidney is atrophic with scattered calcifications. The right kidney is compensatory enlarged. There are multiple scattered calcifications throughout the right kidney. There is prominent the right extrarenal pelvis the prominence of the proximal right ureter to the level of the UPJ region. The mid and distal right ureter does not appear significantly dilated so far as can be seen. No obvious ureteral calculi. Rule out recently passed calculus. Correlation with urinalysis is recommended. There are several low-attenuation foci scattered throughout the right kidney likely representing cysts. There is also in elliptical shaped represent of hyperdense focus lower pole right kidney that measures approximately 8.6 mm adjacent to a small cyst. Rule out chronic scarring, hyperdense cyst versus solid lesion. Follow-up of ultrasound may be of some benefit for further evaluation to exclude solid component BLADDER: Urinary bladder is physiologically distended. No evidence of intraluminal urinary bladder calculi. REPRODUCTIVE: In situ Copper-T IUD. APPENDIX: Normal-appearing appendix best seen on coronal image number [id number]. BOWEL: Evaluation of the bowel is limited due to the lack of oral contrast material. The stomach is incompletely distended which presumably accounts for thick-walled appearance. Visualized loops of small bowel exhibit normal contour and caliber. No evidence of acute mechanical small bowel obstruction. Stool and air seen throughout the large bowel. No definitive evidence of mural wall thickening. PERITONEUM: Unremarkable. No fluid collection. No free air. Small fat containing umbilical hernia. LYMPH NODES: Unremarkable. No enlarged lymph nodes. VASCULATURE: No evidence of aortic or iliac artery aneurysm. BONES: No acute compression fractures nor retropulsed fragments. Mild multilevel degenerative spondylosis of the lower thoracic and to a lesser degree lumbar spine. OTHER FINDINGS: None. IMPRESSION: Atrophic left kidney with scattered calcifications. Right kidney is compensatory enlarged and contains multiple scattered calcifications. Prominent right extrarenal pelvis and proximal ureter though the mid distal ureter does not appear dilated of. No definitive evidence of ureteral calculi however would rule out recently passed calculus. Correlation with urinalysis. . In addition, there are several low-attenuation foci scattered throughout the right kidney likely representing cysts. There is also in elliptical shaped represent of hyperdense focus lower pole right kidney that measures approximately 8.6 mm adjacent to a small cyst. Rule out chronic scarring, hyperdense cyst versus solid lesion. . Follow-up of ultrasound may be of some benefit for further evaluation to exclude solid component. Small hiatal hernia.
[2017-10-24 13:27] VITALS: BP 120/80; PULSE 69; RESP 17; TEMP 98.8
[2017-10-24 13:28] VITALS: O2SAT 99
== END 2017-10-24 14:03 | disposition home or self-care (01) ==
LOC: C.ER 09:08
DX: N28.1 Cyst of kidney, acquired (principal); N23 Unspecified renal colic; N26.1 Atrophy of kidney (terminal); N18.9 Chronic kidney disease, unspecified
CPT/HCPCS: 74176; 80053; 81001; 83690; 84703; 85025; 87086; 96360; 99285; J7040

== ENCOUNTER 2017-11-04 10:20 | Inpatient (IN) | payer OTHER ==
[2017-11-04 10:20] VITALS: BMI 25.9
[2017-11-04 11:46] LABS: BASO # 0.1 K/uL (0.0-0.2); BASO % 1.5 % (0.0-2.0); EOS # 0.2 K/uL (0.0-0.7); EOS % 2.9 % (0.0-4.0); HEMOGLOBIN 12.6 g/dL (11.0-16.0); LYMPH % 36.6 % (20.0-40.0); MEAN CELL VOLUME 90.1 fL (81.0-99.0); MEAN CORPUSCULAR HEMOGLOBIN 31.9 pg (27.0-31.0); MEAN CORPUSCULAR HGB CONC 35.4 g/dL (33.0-37.0); MEAN PLATELET VOLUME 8.4 fL (7.2-11.7); MONO # 0.4 K/uL (0.0-0.8); MONO % 5.3 % (0.0-10.0); NEUT # 4.4 K/uL (1.8-7.0); NEUT % 53.7 % (50.0-75.0); RBC 3.96 Mil/uL (3.80-5.20); RED CELL DISTRIBUTION WIDTH 13.1 % (11.5-14.5); WHITE BLOOD COUNT 8.2 K/uL (4.8-10.8)
[2017-11-04 11:52] LABS: HCG,QUALITATIVE URINE NEGATIVE (NEGATIVE)
[2017-11-04 12:03] LABS: SQUAMOUS EPITHIAL 1 /hpf (0-5); URINE BILIRUBIN NEGATIVE (NEGATIVE); URINE BLOOD NEGATIVE (NEGATIVE); URINE CLARITY Clear (Clear); URINE COLOR Straw (YELLOW); URINE GLUCOSE (UA) NORMAL (Normal); URINE LEUKOCYTE ESTERASE NEG Leu/uL (Negative); URINE PROTEIN NEGATIVE (NEGATIVE); URINE UROBILINOGEN NORMAL mg/dL (0.2-1.0)
[2017-11-04 12:06] LABS: ALB/GLOB RATIO 1.2 (1.0-2.1); ALT/SGPT 51 U/L (9-52); AST/SGOT 40 U/L (14-36); BLOOD UREA NITROGEN 14 mg/dL (7-17); CALCIUM 9.2 mg/dl (8.6-10.4); GFR AFRICAN-AMERICAN > 60; GFR NON-AFRICAN AMERICAN > 60; LIPASE 85 U/L (23-300)
[2017-11-04 12:10] LABS: BARBITURATES, UR NEGATIVE (NEGATIVE); BENZODIAZEPINES, UR NEGATIVE (NEGATIVE); OPIATES, UR NEGATIVE (NEGATIVE); PHENCYCLIDINE, UR NEGATIVE (NEGATIVE)
--- NOTE | 2017-11-04 14:03 | CP.PCM.HP ---
<Ninfa Gillis - Last Filed: 11/04/17 18:27> History of Present Illness - History of Present Illness History of Present Illness: Medicine Note for Hospitalist Service - Dr. Hayes CC: Flank pain HPI: This is a 37 year old female with PMHx HTN, renal stones, and s/p Left renal exploration with left upper pole partial nephrectomy with ureterectomy c/o right flank pain. Patient reports that 4 weeks ago she began having fever, chills, dysuria, and nausea. She was evaluated at a clinic in [place] and was prescribed Nitrofurantoin. She reports that the medication helped a little but symptoms did not fully resolve so she was re-evaluated and prescribed ciprofloxacin. Today she states that her dysuria continues and that she is experiencing right flank pain that she describes as sharp, constant, 6-7/ 10, and worse with laying on her side. She reports that the medication she received in the ED improved her pain. The pain is mostly localized to the right flank but she also feels pain in her suprapubic region. She denies vomiting, diarrhea, hematuria, vaginal discharge, and vaginal bleeding. Patient was evaluated in ED on 10/24 for right flank pain, at that time her pain was determined to be associated with a renal stone and the patient was discharged because her pain resolved. CT scan during that visit revealed a left atrophic kidney with a right enlarged kidney with multiple cysts and an 8.6mm hyperdense lesion. PMHx- HTN, Nephrolithiasis PSHx- appendectomy (1997), cholecystectomy (2007), x3, Left renal exploration with left upper pole partial nephrectomy with ureterectomy ([address] Dos Santos). Medications- Losartan 100mg Allergies- NKDA SHx- denies tobacco, alcohol, and drug use. Patient is currently unemployed. FHx- mother is 77, father is 79, she has 4 brothers and 1 sister, patient states that all members of her family are healthy. OBGYN- Patient is . Patient reports that her first was complicated because the babys head was laying across so a was performed. Patients second was uncomplicated. Patient reports that her third was complicated by preeclampsia, was performed on 12/02/16 by the baby did not survive. Patient reports that her LMP was in June 2017. Periods typically last for 3 days with 28 day cycles. Patient had a copper IUD inserted in February 2017. Present on Admission - Present on Admission Any Indicators Present on Admission: No Past Patient History - Infectious Disease Hx of Infectious Diseases: None - Past Medical History & Family History Past Medical History?: Yes - Past Social History Smoking Status: Never Smoked - CARDIAC Hx Cardiac Disorders: No Hx Hypertension: Yes - PULMONARY Hx Respiratory Disorders: No - NEUROLOGICAL Hx Neurological Disorder: No - HEENT Hx HEENT Problems: No - RENAL Hx Chronic Kidney Disease: Yes Hx Kidney Stones: Yes - ENDOCRINE/METABOLIC Hx Endocrine Disorders: No - INTEGUMENTARY Hx Dermatological Problems: No - MUSCULOSKELETAL/RHEUMATOLOGICAL Hx Falls: No - GASTROINTESTINAL Hx Gall Bladder Disease: Yes - GENITOURINARY/GYNECOLOGICAL Hx Genitourinary Disorders: Yes (SEE COMMENT) Other/Comment: ''PELVIC TUMOR REMOVED IN 2014''; LEFT KIDNEY STONES REMOVE WITH ROBOTICS; Hx of C -section x3. Hx of cholecystectomy, appendectomy. H/O KIDNEY STONES - PSYCHIATRIC Hx Substance Use: No - SURGICAL HISTORY Hx Appendectomy: Yes Hx Section: Yes (x3) Hx Cholecystectomy: Yes - ANESTHESIA Hx Anesthesia: Yes Hx Anesthesia Reactions: No Hx Malignant Hyperthermia: No Meds Allergies/Adverse Reactions: Allergies Allergy/AdvReac Type Severity Reaction Status Date / Time No Known Allergies Allergy Verified 11/04/17 10:43 Physical Exam - Constitutional Appears: No Acute Distress - Head Exam Head Exam: NORMAL INSPECTION, NORMOCEPHALIC - Eye Exam Eye Exam: EOMI, Normal appearance, PERRL. absent: Nystagmus Pupil Exam: NORMAL ACCOMODATION - ENT Exam ENT Exam: Mucous Membranes Moist, Normal Exam - Respiratory Exam Respiratory Exam: Clear to Auscultation Bilateral, NORMAL BREATHING PATTERN. absent: Decreased Breath Sounds, Wheezes - Cardiovascular Exam Cardiovascular Exam: REGULAR RHYTHM, RRR, +S1, +S2 - GI/Abdominal Exam GI & Abdominal Exam: Normal Bowel Sounds, Soft, Tenderness (LLQ, RLQ, suprapubic tenderness ). absent: Distended, Organomegaly - Rectal Exam Rectal Exam: Deferred - Extremities Exam Extremities exam: Positive for: normal inspection, pedal pulses present. Negative for: pedal edema, tenderness - Back Exam Back exam: CVA tenderness (L), CVA tenderness (R), NORMAL INSPECTION. absent: muscle spasm - Neurological Exam Neurological exam: Alert, Oriented x3 - Psychiatric Exam Psychiatric exam: Normal Affect, Normal Mood - Skin Skin Exam: Dry, Intact, Normal Color, Warm Results - Vital Signs Recent Vital Signs: Last Vital Signs Temp 98 F 11/04/17 13:12 Pulse 76 11/04/17 13:12 Resp 18 11/04/17 13:12 BP 105/76 11/04/17 13:12 Pulse Ox 98 11/04/17 13:12 - Labs Result Diagrams: 11/04/17 11:40 11/04/17 11:40 Labs: Laboratory Results - last 24 hr 11/04/17 11/04/17 11/04/17 11:40 11:40 11:40 WBC 8.2 RBC 3.96 Hgb 12.6 Hct 35.7 MCV 90.1 MCH 31.9 H MCHC 35.4 RDW 13.1 Plt Count 268 MPV 8.4 Neut % (Auto) 53.7 Lymph % (Auto) 36.6 [place] % (Auto) 5.3 Eos % (Auto) 2.9 Baso % (Auto) 1.5 Neut # (Auto) 4.4 Lymph # (Auto) 3.0 [place] # (Auto) 0.4 Eos # (Auto) 0.2 Baso # (Auto) 0.1 Sodium 137 Potassium 4.3 Chloride 103 Carbon Dioxide 24 Anion Gap 15 BUN 14 Creatinine 1.0 Est GFR ( Amer) > 60 Est GFR (Non-Af Amer) > 60 Random Glucose 92 Calcium 9.2 Total Bilirubin 0.8 AST 40 H D ALT 51 Alkaline Phosphatase 99 Total Protein 7.4 Albumin 4.0 Globulin 3.4 Albumin/Globulin Ratio 1.2 Lipase 85 Urine Color Straw Urine Clarity Clear Urine pH 6.0 Ur Specific [place] 1.004 Urine Protein Negative Urine Glucose (UA) Normal Urine Ketones Negative Urine Blood Negative Urine Nitrate Negative Urine Bilirubin Negative Urine Urobilinogen Normal Ur Leukocyte Esterase Neg Ur Squamous Epith Cells 1 Urine HCG, Qual Negative Urine Opiates Screen Urine Methadone Screen Ur Barbiturates Screen Ur Phencyclidine Scrn Ur Amphetamines Screen U Benzodiazepines Scrn U Oth Cocaine Metabols U Cannabinoids Screen 11/04/17 11:40 WBC RBC Hgb Hct MCV MCH MCHC RDW Plt Count MPV Neut % (Auto) Lymph % (Auto) [place] % (Auto) Eos % (Auto) Baso % (Auto) Neut # (Auto) Lymph # (Auto) [place] # (Auto) Eos # (Auto) Baso # (Auto) Sodium Potassium Chloride Carbon Dioxide Anion Gap BUN Creatinine Est GFR ( Amer) Est GFR (Non-Af Amer) Random Glucose Calcium Total Bilirubin AST ALT Alkaline Phosphatase Total Protein Albumin Globulin Albumin/Globulin Ratio Lipase Urine Color Urine Clarity Urine pH Ur Specific [place] Urine Protein Urine Glucose (UA) Urine Ketones Urine Blood Urine Nitrate Urine Bilirubin Urine Urobilinogen Ur Leukocyte Esterase Ur Squamous Epith Cells Urine HCG, Qual Urine Opiates Screen Negative Urine Methadone Screen Negative Ur Barbiturates Screen Negative Ur Phencyclidine Scrn Negative Ur Amphetamines Screen Negative U Benzodiazepines Scrn Negative U Oth Cocaine Metabols Negative U Cannabinoids Screen Negative Assessment & Plan - Assessment and Plan (Free Text) Assessment: This is a 37 year old female with PMHx HTN, renal stones, and s/p Left renal exploration with left upper pole partial nephrectomy with ureterectomy c/ o right flank pain. Found to have ESBL + UC on 10/21/17. Plan: ESBL UTI - ID Consulted - Dr. Weeks - help appreciated - Multiple UTIs in the past with ESBL in urine and wounds - Possible colonization - CT Abdomen, Pelvis - Re- demonstrated are significant atrophic changes of the right kidney with multiple scattered calcifications. Compensatory enlargement right kidney which also contains multiple small calcifications as well as small cyst. Probable hyperdense cyst lower pole right kidney however chronic scarring changes may contribute . Prominent right renal pelvis the with on what appears represent mild columnization of the proximal right ureter. No obvious ureteral calculi. Probable hyperdense cyst lower pole right kidney. . . Urologic consultation recommended if not already performed. No evidence of right-sided hydronephrosis or ureteral calculi seen. . Mild bladder wall thickening in part due to incomplete distention however correlation with urinalysis recommended. In situ Copper-T IUD. - UC 10/21/17- ESBL + Management - NS @ 100cc/hr - Meropenem Q8H started 11/04/17, Florastor 250mg PO Q12 - Follow repeat UC, blood culture Hx Left Upper Pole Partial Nephrectomy with Ureterectomy Hx Left Atropic Kidney - Nephrology consulted - Dr. Lala - help appreciated - Urology consulted - Dr. Ivon Reyna - F/U renal and bladder US Hx HTN - Restarted Cozaar 100mg PO daily Prophylaxis - GI: protonix - DVT: SCDs, lovenox Disposition: Pending UC cultures to determine length and sensitivity for antibiotic regimen. May need PICC line and outpatient IVF infusion. DW Dr. Dr. Hayes, Ninfa Gillis DO, PGY-1 <Alisa Hayes V - Last Filed: 11/04/17 23:26> Results - Vital Signs Recent Vital Signs: Last Vital Signs Temp 98.3 F 11/04/17 15:00 Pulse 77 11/04/17 15:00 Resp 20 11/04/17 15:00 BP 126/96 H 11/04/17 15:00 Pulse Ox 98 11/04/17 19:17 - Labs Result Diagrams: 11/04/17 11:40 11/04/17 11:40 Labs: Laboratory Results - last 24 hr 11/04/17 11/04/17 11/04/17 11:40 11:40 11:40 WBC 8.2 RBC 3.96 Hgb 12.6 Hct 35.7 MCV 90.1 MCH 31.9 H MCHC 35.4 RDW 13.1 Plt Count 268 MPV 8.4 Neut % (Auto) 53.7 Lymph % (Auto) 36.6 [place] % (Auto) 5.3 Eos % (Auto) 2.9 Baso % (Auto) 1.5 Neut # (Auto) 4.4 Lymph # (Auto) 3.0 [place] # (Auto) 0.4 Eos # (Auto) 0.2 Baso # (Auto) 0.1 Sodium 137 Potassium 4.3 Chloride 103 Carbon Dioxide 24 Anion Gap 15 BUN 14 Creatinine 1.0 Est GFR ( Amer) > 60 Est GFR (Non-Af Amer) > 60 Random Glucose 92 Calcium 9.2 Total Bilirubin 0.8 AST 40 H D ALT 51 Alkaline Phosphatase 99 Total Protein 7.4 Albumin 4.0 Globulin 3.4 Albumin/Globulin Ratio 1.2 Lipase 85 Urine Color Straw Urine Clarity Clear Urine pH 6.0 Ur Specific [place] 1.004 Urine Protein Negative Urine Glucose (UA) Normal Urine Ketones Negative Urine Blood Negative Urine Nitrate Negative Urine Bilirubin Negative Urine Urobilinogen Normal Ur Leukocyte Esterase Neg Ur Squamous Epith Cells 1 Urine HCG, Qual Negative Urine Opiates Screen Urine Methadone Screen Ur Barbiturates Screen Ur Phencyclidine Scrn Ur Amphetamines Screen U Benzodiazepines Scrn U Oth Cocaine Metabols U Cannabinoids Screen 11/04/17 11:40 WBC RBC Hgb Hct MCV MCH MCHC RDW Plt Count MPV Neut % (Auto) Lymph % (Auto) [place] % (Auto) Eos % (Auto) Baso % (Auto) Neut # (Auto) Lymph # (Auto) [place] # (Auto) Eos # (Auto) Baso # (Auto) Sodium Potassium Chloride Carbon Dioxide Anion Gap BUN Creatinine Est GFR ( Amer) Est GFR (Non-Af Amer) Random Glucose Calcium Total Bilirubin AST ALT Alkaline Phosphatase Total Protein Albumin Globulin Albumin/Globulin Ratio Lipase Urine Color Urine Clarity Urine pH Ur Specific [place] Urine Protein Urine Glucose (UA) Urine Ketones Urine Blood Urine Nitrate Urine Bilirubin Urine Urobilinogen Ur Leukocyte Esterase Ur Squamous Epith Cells Urine HCG, Qual Urine Opiates Screen Negative Urine Methadone Screen Negative Ur Barbiturates Screen Negative Ur Phencyclidine Scrn Negative Ur Amphetamines Screen Negative U Benzodiazepines Scrn Negative U Oth Cocaine Metabols Negative U Cannabinoids Screen Negative Attending/Attestation - Attestation I have personally seen and examined this patient.: Yes I have fully participated in the care of the patient.: Yes I have reviewed all pertinent clinical information: Yes Notes (Text): Patient seen, examined and case discussed with day-time resident. Admitting orders discussed with resident in detail. Patient has failed PO UTI therapy. Prior history of ESBL. Patient has history of partial nephrectomy and hx of kidney stones. Nephrology, urology, and id consult Start IV abx; prior culture from 10/21/17 showing ESBL. repeat culture during ED visit was contaminated.
[2017-11-04] MEDS ORDERED: Morphine 4 MG/ML VIAL IVP PRN (14:05)
[2017-11-04] MEDS ORDERED: Meropenem 500 MG in Sodium Chloride 0.9% 100 ML IVPB SCH (14:30)
[2017-11-04] MEDS: Sodium Chloride 0.9% 1,000 ML IV SCH (14:33)
--- NOTE | 2017-11-04 14:43 | C.PDOC ---
History Of Present Illness 37-year-old female, presents to the emergency department with complaints of dysuria. Patient states she was receiving outpatient treatment for a UTI in clinic, but culture came back ESBL positive, patient was referred to ED for further evaluation, and admission for IV antibiotics. Patient continues to have dysuria, associated with suprapubic discomfort that radiates to left side of her back. She denies nausea/vomiting, fever, chills, chest pain, shortness of breath or any other associated symptoms. No other complaints at this time. Time Seen by Provider: 11/04/17 10:49 Chief Complaint (Nursing): Female Genitourinary History Per: Patient History/Exam Limitations: no limitations Onset/Duration Of Symptoms: Days Current Symptoms Are (Timing): Still Present Past Medical History Reviewed: Historical Data, Nursing Documentation, Vital Signs Vital Signs: Last Vital Signs Temp 98.3 F 11/04/17 15:00 Pulse 77 11/04/17 15:00 Resp 20 11/04/17 15:00 BP 126/96 H 11/04/17 15:00 Pulse Ox 98 11/04/17 15:00 - Medical History PMH: Gall Bladder Disease, HTN, Kidney Stones, Chronic Kidney Disease Surgical History: Appendectomy, Cholecystectomy - [facility] Procedures EXCISION OF ABDOMINAL WALL, OPEN APPROACH (11/10/15) EXCISION OF LEFT KIDNEY, PERCUTANEOUS ENDOSCOPIC APPROACH (04/16/16) LOW CERVICAL (10/29/14) OTH LYSIS-PERITONEAL ADHES (10/29/14) REPAIR ABDOMINAL WALL, OPEN APPROACH (11/10/15) Family History: States: No Known Family Hx - Social History Hx Tobacco Use: No Hx Alcohol Use: No Hx Substance Use: No - Immunization History Hx Tetanus Toxoid Vaccination: No Hx Influenza Vaccination: No Hx Pneumococcal Vaccination: No Review Of Systems Constitutional: Negative for: Fever, Chills Cardiovascular: Negative for: Chest Pain, Palpitations Respiratory: Negative for: Shortness of Breath Gastrointestinal: Positive for: Abdominal Pain. Negative for: Vomiting Genitourinary: Positive for: Dysuria Musculoskeletal: Positive for: Back Pain Physical Exam - Physical Exam Appears: Non-toxic, No Acute Distress Skin: Normal Color, Warm, Dry, No Rash Head: Normacephalic Eye(s): bilateral: PERRL Nose: Normal Oral Mucosa: Moist Lips: Normal Appearing Neck: Normal ROM Chest: Symmetrical Cardiovascular: Rhythm Regular, No Murmur Respiratory: Normal Breath Sounds, No Accessory Muscle Use Gastrointestinal/Abdominal: Soft, Tenderness (suprapubic), No Guarding, No Rebound Back: CVA Tenderness (left) Extremity: Normal ROM, No Deformity, No Swelling Neurological/Psych: Oriented x3, Normal Speech ED Course And Treatment - Laboratory Results Result Diagrams: 11/04/17 11:40 11/04/17 11:40 O2 Sat by Pulse Oximetry: 98 (RA) Pulse Ox Interpretation: Normal Medical Decision Making Medical Decision Making: Plan: * Bloodwork * UA * Reassess and Disposition Blood and urine cultures sent. Patient has failed outpatient therapy. Case was discussed with Dr. Mcmahan who agrees to admit the patient. Also old records reviewed patient has a history of kidney injury, but no history of admission into the hospital. Disposition - Disposition Disposition: HOSPITALIZED Disposition Time: 14:21 Condition: STABLE - Clinical Impression Clinical Impression: Urinary tract infection due to ESBL Klebsiella, Flank pain - Scribe Statement The provider has reviewed the documentation as recorded by the Scribe (Doc Oliveira) All medical record entries made by the Scribe were at my direction and personally dictated by me. I have reviewed the chart and agree that the record accurately reflects my personal performance of the history, physical exam, medical decision making, and the department course for this patient. I have also personally directed, reviewed, and agree with the discharge instructions and disposition.
--- NOTE | 2017-11-04 18:00 | CT ---
PROCEDURE: CT scan abdomen pelvis dated 11/03/2017 HISTORY: ESBL UTI, concern for nephrolithiasis / hydronep COMPARISON: Comparison made prior CT scan abdomen pelvis 10/24/2017 TECHNIQUE: Contiguous helical/transaxial images of the abdomen and pelvis performed without oral or intravenous contrast material. Additional 2D sagittal and coronal reformats generated. This CT exam was performed using one or more of the following dose reduction techniques: Automated exposure control, adjustment of the mA and/or kV according to patient size, and/or use of iterative reconstruction technique. Radiation dose: Total exam DLP = 640.16 mGy-cm. FINDINGS: LOWER THORAX: Lung bases are clear without focal consolidation or effusion. LIVER: Liver exhibits normal size measuring just over 17 cm in CC dimension. No obvious hepatic mass collection or calcification. GALLBLADDER AND BILE DUCTS: Gallbladder is not visualized. Clinical correlation with surgical history recommended. [place] PANCREAS: Pancreas unremarkable. SPLEEN: Spleen exhibits normal size and attenuation pattern. No splenic masses collections or calcifications. ADRENALS: The no adrenal lesions. KIDNEYS AND URETERS: Left kidney remains significantly atrophic and contains scattered calcifications. No evidence of left-sided hydronephrosis. Multiple small calcifications seen scattered throughout the right kidney however no evidence of right-sided hydronephrosis is identified. . Few small cystic foci again seen the right kidney. Also again noted is a small more hyperdense focus lower pole right kidney that could represent hyperdense cyst. Followup ultrasound could be performed confirm. BLADDER: Urinary bladder is incompletely distended which may in part account for slight thick-walled appearance. The possibility of a cystitis not excluded. Correlation with urinalysis recommended. . REPRODUCTIVE: In situ Copper-T IUD. APPENDIX: Unremarkable. BOWEL: Evaluation of the bowel is limited due to the lack of oral contrast material. Stomach is partially distended with food debris liquid and air. Visualized loops of small bowel exhibit normal contour and caliber. No evidence of acute mechanical small bowel obstruction. Stool and air seen throughout the large bowel. There does appear to be scattered colonic diverticula however no radiographic evidence acute diverticulitis. Move PERITONEUM: Unremarkable. No fluid collection. No free air. Small fat containing umbilical hernia. LYMPH NODES: Unremarkable. No enlarged lymph nodes. VASCULATURE: Unremarkable. No aortic aneurysm. BONES: Very minor multilevel degenerative spondylosis of the lower thoracic and lumbar spine. OTHER FINDINGS: None. IMPRESSION: Re- demonstrated are significant atrophic changes of the right kidney with multiple scattered calcifications. Compensatory enlargement right kidney which also contains multiple small calcifications as well as small cyst. Probable hyperdense cyst lower pole right kidney however chronic scarring changes may contribute . Prominent right renal pelvis the with on what appears represent mild columnization of the proximal right ureter. No obvious ureteral calculi. Probable hyperdense cyst lower pole right kidney. . . Urologic consultation recommended if not already performed. No evidence of right-sided hydronephrosis or ureteral calculi seen. . Mild bladder wall thickening in part due to incomplete distention however correlation with urinalysis recommended. In situ Copper-T IUD.
--- NOTE | 2017-11-04 18:30 | CP.PCM.CON ---
History of Present Illness - History of Present Illness History of Present Illness: dictated Past Patient History - Infectious Disease Hx of Infectious Diseases: None - Past Medical History & Family History Past Medical History?: Yes - Past Social History Smoking Status: Never Smoked - CARDIAC Hx Hypertension: Yes - PULMONARY Hx Respiratory Disorders: No - NEUROLOGICAL Hx Neurological Disorder: No - HEENT Hx HEENT Problems: No - RENAL Hx Chronic Kidney Disease: Yes Hx Kidney Stones: Yes - ENDOCRINE/METABOLIC Hx Endocrine Disorders: No - INTEGUMENTARY Hx Dermatological Problems: No - MUSCULOSKELETAL/RHEUMATOLOGICAL Hx Falls: No - GASTROINTESTINAL Hx Gall Bladder Disease: Yes - GENITOURINARY/GYNECOLOGICAL Hx Genitourinary Disorders: Yes (SEE COMMENT) Other/Comment: ''PELVIC TUMOR REMOVED IN 2014''; LEFT KIDNEY STONES REMOVE WITH ROBOTICS; Hx of C -section x3. Hx of cholecystectomy, appendectomy. H/O KIDNEY STONES - PSYCHIATRIC Hx Substance Use: No - SURGICAL HISTORY Hx Appendectomy: Yes Hx Cholecystectomy: Yes - ANESTHESIA Hx Anesthesia: Yes Hx Anesthesia Reactions: No Hx Malignant Hyperthermia: No Meds Allergies/Adverse Reactions: Allergies Allergy/AdvReac Type Severity Reaction Status Date / Time No Known Allergies Allergy Verified 11/04/17 10:43 - Medications Medications: Current Medications Acetaminophen (Tylenol 325mg Tab) 650 mg PO Q6 PRN PRN Reason: Fever >100.4 F Enoxaparin Sodium (Lovenox) 40 mg SC DAILY [facility] Sodium Chloride (Sodium Chloride 0.9%) 1,000 mls @ 100 mls/hr IV .Q10H [facility] Last Admin: 11/04/17 14:33 Dose: 100 mls/hr Meropenem 1 gm/ Sodium (Chloride) 100 mls @ 100 mls/hr IVPB Q8 [facility] PRN Reason: Protocol Losartan Potassium (Cozaar) 100 mg PO DAILY [facility] Morphine Sulfate (Morphine) 1 mg IVP Q6H PRN PRN Reason: Pain, severe (8-10) Pantoprazole Sodium (Protonix Ec Tab) 40 mg PO DAILY [facility] Saccharomyces Boulardii (Florastor) 250 mg PO Q12 [facility] Results - Vital Signs Recent Vital Signs: Last Vital Signs Temp 98.3 F 11/04/17 15:00 Pulse 77 11/04/17 15:00 Resp 20 11/04/17 15:00 BP 126/96 H 11/04/17 15:00 Pulse Ox 98 11/04/17 15:00 - Labs Result Diagrams: 11/04/17 11:40 11/04/17 11:40 Labs: Laboratory Results - last 24 hr 11/04/17 11/04/17 11/04/17 11:40 11:40 11:40 WBC 8.2 RBC 3.96 Hgb 12.6 Hct 35.7 MCV 90.1 MCH 31.9 H MCHC 35.4 RDW 13.1 Plt Count 268 MPV 8.4 Neut % (Auto) 53.7 Lymph % (Auto) 36.6 [place] % (Auto) 5.3 Eos % (Auto) 2.9 Baso % (Auto) 1.5 Neut # (Auto) 4.4 Lymph # (Auto) 3.0 [place] # (Auto) 0.4 Eos # (Auto) 0.2 Baso # (Auto) 0.1 Sodium 137 Potassium 4.3 Chloride 103 Carbon Dioxide 24 Anion Gap 15 BUN 14 Creatinine 1.0 Est GFR ( Amer) > 60 Est GFR (Non-Af Amer) > 60 Random Glucose 92 Calcium 9.2 Total Bilirubin 0.8 AST 40 H D ALT 51 Alkaline Phosphatase 99 Total Protein 7.4 Albumin 4.0 Globulin 3.4 Albumin/Globulin Ratio 1.2 Lipase 85 Urine Color Straw Urine Clarity Clear Urine pH 6.0 Ur Specific [place] 1.004 Urine Protein Negative Urine Glucose (UA) Normal Urine Ketones Negative Urine Blood Negative Urine Nitrate Negative Urine Bilirubin Negative Urine Urobilinogen Normal Ur Leukocyte Esterase Neg Ur Squamous Epith Cells 1 Urine HCG, Qual Negative Urine Opiates Screen Urine Methadone Screen Ur Barbiturates Screen Ur Phencyclidine Scrn Ur Amphetamines Screen U Benzodiazepines Scrn U Oth Cocaine Metabols U Cannabinoids Screen 11/04/17 11:40 WBC RBC Hgb Hct MCV MCH MCHC RDW Plt Count MPV Neut % (Auto) Lymph % (Auto) [place] % (Auto) Eos % (Auto) Baso % (Auto) Neut # (Auto) Lymph # (Auto) [place] # (Auto) Eos # (Auto) Baso # (Auto) Sodium Potassium Chloride Carbon Dioxide Anion Gap BUN Creatinine Est GFR ( Amer) Est GFR (Non-Af Amer) Random Glucose Calcium Total Bilirubin AST ALT Alkaline Phosphatase Total Protein Albumin Globulin Albumin/Globulin Ratio Lipase Urine Color Urine Clarity Urine pH Ur Specific [place] Urine Protein Urine Glucose (UA) Urine Ketones Urine Blood Urine Nitrate Urine Bilirubin Urine Urobilinogen Ur Leukocyte Esterase Ur Squamous Epith Cells Urine HCG, Qual Urine Opiates Screen Negative Urine Methadone Screen Negative Ur Barbiturates Screen Negative Ur Phencyclidine Scrn Negative Ur Amphetamines Screen Negative U Benzodiazepines Scrn Negative U Oth Cocaine Metabols Negative U Cannabinoids Screen Negative
[2017-11-04] MEDS: Meropenem 1 GM in Sodium Chloride 0.9% 100 ML IVPB SCH ×2 (18:50→21:35)
[2017-11-04] MEDS: Saccharomyces Boulardi 250 mg Cap PO SCH ×2 (21:26→22:21)
[2017-11-05] MEDS: Sodium Chloride 0.9% 1,000 ML IV SCH ×4 (00:15→19:11)
--- NOTE | 2017-11-05 05:17 | CON ---
DATE: INFECTIOUS DISEASE CONSULT REQUESTED BY: Alisa Hayes DO HISTORY OF PRESENT ILLNESS: This patient is a 37-year-old female. She has history of hypertension, renal stones; and she had fever, chills, dysuria, and nausea. It has been going on for few weeks. She was given nitrofurantoin in the clinic which was not making her better. She continued to have dysuria, and her urine culture is positive for he ESBL, hence she is admitted here. She denies any vomiting, diarrhea. Denies any vaginal discharge. She did have pain more on the right side than on the left side. She did have kidney stones before, and she has had previous surgery. According to the hospitalist note, she has had a left renal exploration with left upper pole partial nephrectomy. PAST MEDICAL HISTORY: She does have past medical history of hypertension and nephrolithiasis. SURGICAL HISTORY: Includes appendicectomy, cholecystectomy, three times, left renal exploration with left upper pole nephrectomy, and ureterectomy by , MEDICATIONS: She is on losartan. ALLERGIES: SHE IS NOT ALLERGIC TO ANY MEDICINES. SOCIAL HISTORY: Negative for smoking or drinking or any drug abuse. The patient is currently unemployed. FAMILY HISTORY: Mother is 77, father is 79, and she says all her family members are healthy. At this time, she is admitted with abnormality. She was treated for UTI, but now she has ESBL and we have started meropenem. REVIEW OF SYSTEMS: She denies any other complaints. She takes losartan. PHYSICAL EXAMINATION: VITAL SIGNS: Her temperature is 98.3, pulse 77, blood pressure is 126/96, respirations are 20. HEENT: Otherwise, head is atraumatic and normocephalic. Pupils are reacting to light. NECK: Supple. LUNGS: Clear. HEART: S1, S2 regular. ABDOMEN: Soft, nontender. No guarding, no rigidity present. BACK: Right CVA, mild tenderness present. EXTREMITIES: Have no edema, clubbing, or cyanosis. White count is 8.2, hemoglobin 12.6, hematocrit 35.7, platelet count is 268, BUN is 14, creatinine is 1, AST is 40. UA is unremarkable at this time. Urine drug screen was also done which is negative. She had actually a microbiology culture which was done. Urine culture which was done on 10/21 which was ESBL positive. Hence, she is started on meropenem at this time, and her kidney functions are unremarkable. Septic workup, blood and urine should be repeated today, and CAT scan abdomen and pelvis was done, results of which are pending at this time, and so at this time, the patient is admitted with urinary tract infection, right pyelonephritis, history of kidney stone, probably complicated urinary tract infection. Suggest to get a urine culture and blood cultures, and we will follow. Hill Weeks MD
[2017-11-05] MEDS: Meropenem 1 GM in Sodium Chloride 0.9% 100 ML IVPB SCH ×3 (05:30→21:23)
[2017-11-05 06:49] LABS: BASO # 0.1 K/uL (0.0-0.2); EOS # 0.3 K/uL (0.0-0.7); EOS % 3.8 % (0.0-4.0); HEMOGLOBIN 12.2 g/dL (11.0-16.0); LYMPH # 2.3 K/uL (1.0-4.3); LYMPH % 31.8 % (20.0-40.0); MEAN CELL VOLUME 91.2 fL (81.0-99.0); MEAN CORPUSCULAR HEMOGLOBIN 32.2 pg (27.0-31.0); MEAN CORPUSCULAR HGB CONC 35.3 g/dL (33.0-37.0); MEAN PLATELET VOLUME 8.3 fL (7.2-11.7); MONO # 0.4 K/uL (0.0-0.8); MONO % 5.1 % (0.0-10.0); NEUT # 4.2 K/uL (1.8-7.0); NEUT % 58.3 % (50.0-75.0); RBC 3.8 Mil/uL (3.80-5.20); RED CELL DISTRIBUTION WIDTH 13.4 % (11.5-14.5); WHITE BLOOD COUNT 7.2 K/uL (4.8-10.8)
[2017-11-05 07:06] LABS: ALB/GLOB RATIO 1.2 (1.0-2.1); ALBUMIN 3.6 g/dL (3.5-5.0); ALT/SGPT 51 U/L (9-52); AST/SGOT 30 U/L (14-36); BLOOD UREA NITROGEN 13 mg/dL (7-17); CALCIUM 8.5 mg/dl (8.6-10.4); GFR AFRICAN-AMERICAN > 60; GFR NON-AFRICAN AMERICAN > 60
--- NOTE | 2017-11-05 08:22 | US ---
PROCEDURE: Ultrasound of the Kidneys HISTORY: pyleonephritus; dysuria COMPARISON: Renal ultrasound 09/02/2017. TECHNIQUE: Sonogram of the kidneys. FINDINGS: RIGHT KIDNEY: Measures: 14.3 cm. Unremarkable in echogenicity. Multiple nonobstructing stones noted with the largest measuring 0.7 cm. There is a 1.3 cm lower pole cyst. Mild right pelviectasis. LEFT KIDNEY: Measures: 6.9 cm. Atrophic with cortical thinning. Multiple nonobstructing stones noted with the largest measuring 0.6 cm. No cyst or hydronephrosis is identified. OTHER FINDINGS: Visualized portions of the aorta are unremarkable. Urinary bladder: The urinary bladder is Unremarkable without wall thickening or intraluminal debris. No calculus or gross mass lesion identified. Prevoid bladder volume was 420 cc. Postvoid bladder volume was 29 cc. IMPRESSION: Bilateral nonobstructing renal calculi. Mild right pelviectasis. Right renal cyst as above. Atrophic left kidney.
[2017-11-05] MEDS: Enoxaparin 40 mg Syringe SC SCH (10:30)
[2017-11-05] MEDS: Pantoprazole 40 mg EC Tab PO SCH (10:30)
[2017-11-05] MEDS: Saccharomyces Boulardi 250 mg Cap PO SCH ×2 (10:30→21:23)
--- NOTE | 2017-11-05 10:56 | CP.PCM.CON ---
History of Present Illness - History of Present Illness History of Present Illness: HPI: This is a 37 year old female with PMHx HTN, renal stones, and s/p Left renal exploration with left upper pole partial nephrectomy with ureterectomy c/o right flank pain. Patient reports that 4 weeks ago she began having fever, chills, dysuria, and nausea. She was evaluated at a clinic in [place] and was prescribed Nitrofurantoin. She reports that the medication helped a little but symptoms did not fully resolve so she was re-evaluated and prescribed ciprofloxacin. Today she states that her dysuria continues and that she is experiencing right flank pain that she describes as sharp, constant, 6-7/ 10, and worse with laying on her side. She reports that the medication she received in the ED improved her pain. The pain is mostly localized to the right flank but she also feels pain in her suprapubic region. She denies vomiting, diarrhea, hematuria, vaginal discharge, and vaginal bleeding. Patient was evaluated in ED on 10/24 for right flank pain, at that time her pain was determined to be associated with a renal stone and the patient was discharged because her pain resolved. CT scan revealed a left atrophic kidney with a right enlarged kidney with multiple cysts and an 8.6mm hyperdense lesion. seen by ID, on merrem for ESBL UTI. PMHx- HTN, Nephrolithiasis PSHx- appendectomy (1997), cholecystectomy (2007), x3, Left renal exploration with left upper pole partial nephrectomy with ureterectomy ([address] Dos Santos). Medications- Losartan 100mg Allergies- NKDA SHx- denies tobacco, alcohol, and drug use. Patient is currently unemployed. FHx- mother is 77, father is 79, she has 4 brothers and 1 sister, patient states that all members of her family are healthy. Past Patient History - Infectious Disease Hx of Infectious Diseases: None - Past Medical History & Family History Past Medical History?: Yes - Past Social History Smoking Status: Never Smoked - CARDIAC Hx Hypertension: Yes - PULMONARY Hx Respiratory Disorders: No - NEUROLOGICAL Hx Neurological Disorder: No - HEENT Hx HEENT Problems: No - RENAL Hx Chronic Kidney Disease: Yes Hx Kidney Stones: Yes - ENDOCRINE/METABOLIC Hx Endocrine Disorders: No - INTEGUMENTARY Hx Dermatological Problems: No - MUSCULOSKELETAL/RHEUMATOLOGICAL Hx Falls: No - GASTROINTESTINAL Hx Gall Bladder Disease: Yes - GENITOURINARY/GYNECOLOGICAL Hx Genitourinary Disorders: Yes (SEE COMMENT) Other/Comment: ''PELVIC TUMOR REMOVED IN 2014''; LEFT KIDNEY STONES REMOVE WITH ROBOTICS; Hx of C -section x3. Hx of cholecystectomy, appendectomy. H/O KIDNEY STONES - PSYCHIATRIC Hx Substance Use: No - SURGICAL HISTORY Hx Appendectomy: Yes Hx Cholecystectomy: Yes - ANESTHESIA Hx Anesthesia: Yes Hx Anesthesia Reactions: No Hx Malignant Hyperthermia: No Meds Allergies/Adverse Reactions: Allergies Allergy/AdvReac Type Severity Reaction Status Date / Time No Known Allergies Allergy Verified 11/04/17 10:43 - Medications Medications: Current Medications Acetaminophen (Tylenol 325mg Tab) 650 mg PO Q6 PRN PRN Reason: Fever >100.4 F Enoxaparin Sodium (Lovenox) 40 mg SC DAILY [facility] Last Admin: 11/05/17 10:30 Dose: 40 mg Sodium Chloride (Sodium Chloride 0.9%) 1,000 mls @ 100 mls/hr IV .Q10H [facility] Last Admin: 11/05/17 10:31 Dose: Not Given Meropenem 1 gm/ Sodium (Chloride) 100 mls @ 100 mls/hr IVPB Q8 LETY PRN Reason: Protocol Last Admin: 11/05/17 05:30 Dose: 100 mls/hr Losartan Potassium (Cozaar) 100 mg PO DAILY [facility] Last Admin: 11/05/17 10:30 Dose: 100 mg Morphine Sulfate (Morphine) 1 mg IVP Q6H PRN PRN Reason: Pain, severe (8-10) Pantoprazole Sodium (Protonix Ec Tab) 40 mg PO DAILY [facility] Last Admin: 11/05/17 10:30 Dose: 40 mg Saccharomyces Boulardii (Florastor) 250 mg PO Q12 [facility] Last Admin: 11/05/17 10:30 Dose: 250 mg Physical Exam - Constitutional Appears: Non-toxic, No Acute Distress - Head Exam Head Exam: NORMAL INSPECTION - Eye Exam Eye Exam: Normal appearance, PERRL - ENT Exam ENT Exam: Mucous Membranes Moist, Normal Exam - Neck Exam Neck exam: Positive for: Normal Inspection - Respiratory Exam Respiratory Exam: Clear to Auscultation Bilateral, NORMAL BREATHING PATTERN - Cardiovascular Exam Cardiovascular Exam: REGULAR RHYTHM, RRR - GI/Abdominal Exam GI & Abdominal Exam: Normal Bowel Sounds, Soft - Extremities Exam Extremities exam: Positive for: normal inspection - Back Exam Back exam: NORMAL INSPECTION - Neurological Exam Neurological exam: Alert, Oriented x3 - Psychiatric Exam Psychiatric exam: Normal Affect, Normal Mood - Skin Skin Exam: Dry, Intact Results - Vital Signs Recent Vital Signs: Last Vital Signs Temp 98.3 F 11/05/17 00:00 Pulse 85 11/05/17 00:00 Resp 20 11/05/17 00:00 BP 120/75 11/05/17 00:00 Pulse Ox 98 11/05/17 00:00 - Labs Result Diagrams: 11/05/17 06:30 11/05/17 06:30 Labs: Laboratory Results - last 24 hr 11/04/17 11/04/17 11/04/17 11:40 11:40 11:40 WBC 8.2 RBC 3.96 Hgb 12.6 Hct 35.7 MCV 90.1 MCH 31.9 H MCHC 35.4 RDW 13.1 Plt Count 268 MPV 8.4 Neut % (Auto) 53.7 Lymph % (Auto) 36.6 Branch % (Auto) 5.3 Eos % (Auto) 2.9 Baso % (Auto) 1.5 Neut # (Auto) 4.4 Lymph # (Auto) 3.0 Branch # (Auto) 0.4 Eos # (Auto) 0.2 Baso # (Auto) 0.1 Sodium 137 Potassium 4.3 Chloride 103 Carbon Dioxide 24 Anion Gap 15 BUN 14 Creatinine 1.0 Est GFR ( Amer) > 60 Est GFR (Non-Af Amer) > 60 Random Glucose 92 Calcium 9.2 Phosphorus Magnesium Total Bilirubin 0.8 AST 40 H D ALT 51 Alkaline Phosphatase 99 Total Protein 7.4 Albumin 4.0 Globulin 3.4 Albumin/Globulin Ratio 1.2 Lipase 85 Urine Color Straw Urine Clarity Clear Urine pH 6.0 Ur Specific Pierson 1.004 Urine Protein Negative Urine Glucose (UA) Normal Urine Ketones Negative Urine Blood Negative Urine Nitrate Negative Urine Bilirubin Negative Urine Urobilinogen Normal Ur Leukocyte Esterase Neg Ur Squamous Epith Cells 1 Urine HCG, Qual Negative Urine Opiates Screen Urine Methadone Screen Ur Barbiturates Screen Ur Phencyclidine Scrn Ur Amphetamines Screen U Benzodiazepines Scrn U Oth Cocaine Metabols U Cannabinoids Screen 11/04/17 11/05/17 11/05/17 11:40 06:30 06:30 WBC 7.2 RBC 3.80 Hgb 12.2 Hct 34.6 MCV 91.2 MCH 32.2 H MCHC 35.3 RDW 13.4 Plt Count 256 MPV 8.3 Neut % (Auto) 58.3 Lymph % (Auto) 31.8 Branch % (Auto) 5.1 Eos % (Auto) 3.8 Baso % (Auto) 1.0 Neut # (Auto) 4.2 Lymph # (Auto) 2.3 Branch # (Auto) 0.4 Eos # (Auto) 0.3 Baso # (Auto) 0.1 Sodium 140 Potassium 4.3 Chloride 106 Carbon Dioxide 25 Anion Gap 15 BUN 13 Creatinine 1.0 Est GFR ( Amer) > 60 Est GFR (Non-Af Amer) > 60 Random Glucose 110 H Calcium 8.5 L Phosphorus 2.9 Magnesium 1.7 Total Bilirubin 0.6 AST 30 ALT 51 Alkaline Phosphatase 87 Total Protein 6.7 Albumin 3.6 Globulin 3.1 Albumin/Globulin Ratio 1.2 Lipase Urine Color Urine Clarity Urine pH Ur Specific Pierson Urine Protein Urine Glucose (UA) Urine Ketones Urine Blood Urine Nitrate Urine Bilirubin Urine Urobilinogen Ur Leukocyte Esterase Ur Squamous Epith Cells Urine HCG, Qual Urine Opiates Screen Negative Urine Methadone Screen Negative Ur Barbiturates Screen Negative Ur Phencyclidine Scrn Negative Ur Amphetamines Screen Negative U Benzodiazepines Scrn Negative U Oth Cocaine Metabols Negative U Cannabinoids Screen Negative Assessment & Plan (1) Flank pain Status: Acute (2) Urinary tract infection due to ESBL Klebsiella Status: Acute (3) Chronic hypertension Status: Acute (4) Renal atrophy, left Status: Acute (5) Renal cyst Status: Acute - Assessment and Plan (Free Text) Assessment: solitary functional kidney hx of chronic nephrolithiasis ESBL UTI HTN plan: benign ua, check urine cultures merrem per ID maintain losartan Rt renal hyperdense cyst evaluation, US ordered
--- NOTE | 2017-11-05 11:54 | CP.PCM.PN ---
<Ninfa Gillis - Last Filed: 11/05/17 11:51> Subjective - Date & Time of Evaluation Date of Evaluation: 11/05/17 Time of Evaluation: 07:00 - Subjective Subjective: Medicine Note for Hospitalist Service- Dr. Hayes Patient was seen and examined at bedside. Patient reports her bilateral flank pain and suprapubic tenderness is still present but the pain is less severe. Denied fever, chills, headache, chest pain, n/v/d/c, or dysuria/hematuria. Objective - Vital Signs/Intake and Output Vital Signs (last 24 hours): Temp Pulse Resp BP Pulse Ox 98.3 F 85 20 120/75 98 11/05/17 00:00 11/05/17 00:00 11/05/17 00:00 11/05/17 00:00 11/05/17 00:00 Intake and Output: 11/05/17 11/05/17 06:59 18:59 Intake Total 1550 Balance 1550 - Medications Medications: Current Medications Acetaminophen (Tylenol 325mg Tab) 650 mg PO Q6 PRN PRN Reason: Fever >100.4 F Enoxaparin Sodium (Lovenox) 40 mg SC DAILY [facility] Last Admin: 11/05/17 10:30 Dose: 40 mg Sodium Chloride (Sodium Chloride 0.9%) 1,000 mls @ 100 mls/hr IV .Q10H [facility] Last Admin: 11/05/17 10:31 Dose: Not Given Meropenem 1 gm/ Sodium (Chloride) 100 mls @ 100 mls/hr IVPB Q8 LETY PRN Reason: Protocol Last Admin: 11/05/17 05:30 Dose: 100 mls/hr Losartan Potassium (Cozaar) 100 mg PO DAILY [facility] Last Admin: 11/05/17 10:30 Dose: 100 mg Morphine Sulfate (Morphine) 1 mg IVP Q6H PRN PRN Reason: Pain, severe (8-10) Pantoprazole Sodium (Protonix Ec Tab) 40 mg PO DAILY [facility] Last Admin: 11/05/17 10:30 Dose: 40 mg Saccharomyces Boulardii (Florastor) 250 mg PO Q12 [facility] Last Admin: 11/05/17 10:30 Dose: 250 mg - Labs Labs: 11/05/17 06:30 11/05/17 06:30 - Additional Findings Additional findings: - Constitutional Appears: No Acute Distress - Head Exam Head Exam: NORMAL INSPECTION, NORMOCEPHALIC - Eye Exam Eye Exam: EOMI, Normal appearance, PERRL. absent: Nystagmus Pupil Exam: NORMAL ACCOMODATION - ENT Exam ENT Exam: Mucous Membranes Moist, Normal Exam - Respiratory Exam Respiratory Exam: Clear to Auscultation Bilateral, NORMAL BREATHING PATTERN. absent: Decreased Breath Sounds, Wheezes - Cardiovascular Exam Cardiovascular Exam: REGULAR RHYTHM, RRR, +S1, +S2 - GI/Abdominal Exam GI & Abdominal Exam: Normal Bowel Sounds, Soft, Tenderness (LLQ, RLQ, suprapubic tenderness ). absent: Distended, Organomegaly - Rectal Exam Rectal Exam: Deferred - Extremities Exam Extremities exam: Positive for: normal inspection, pedal pulses present. Negative for: pedal edema, tenderness - Back Exam Back exam: CVA tenderness (L), CVA tenderness (R), NORMAL INSPECTION. absent: muscle spasm - Neurological Exam Neurological exam: Alert, Oriented x3 - Psychiatric Exam Psychiatric exam: Normal Affect, Normal Mood - Skin Skin Exam: Dry, Intact, Normal Color, Warm Assessment and Plan - Assessment and Plan (Free Text) Assessment: This is a 37 year old female with PMHx HTN, renal stones, and s/p Left renal exploration with left upper pole partial nephrectomy with ureterectomy c/ o right flank pain. Found to have ESBL + UC on 10/21/17. Plan: ESBL UTI - ID Consulted - Dr. Weeks - help appreciated - Multiple UTIs in the past with ESBL in urine and wounds - Possible colonization - CT Abdomen, Pelvis - Re- demonstrated are significant atrophic changes of the right kidney with multiple scattered calcifications. Compensatory enlargement right kidney which also contains multiple small calcifications as well as small cyst. Probable hyperdense cyst lower pole right kidney however chronic scarring changes may contribute . Prominent right renal pelvis the with on what appears represent mild columnization of the proximal right ureter. No obvious ureteral calculi. Probable hyperdense cyst lower pole right kidney. . . Urologic consultation recommended if not already performed. No evidence of right-sided hydronephrosis or ureteral calculi seen. . Mild bladder wall thickening in part due to incomplete distention however correlation with urinalysis recommended. In situ Copper-T IUD. - UC 10/21/17- ESBL + Management - NS @ 100cc/hr - Meropenem Q8H started 11/04/17, Florastor 250mg PO Q12 - Repeat UC - no growth up to date - Blood culture pending Hx Left Upper Pole Partial Nephrectomy with Ureterectomy Hx Left Atropic Kidney - Nephrology consulted - Dr. Lala - help appreciated - Urology consulted - Dr. Ivon Reyna - Renal and bladder US - renal hyperdense cyst - Abdomen/renal US - ordered by Nephro - will follow up Hx HTN - Restarted Cozaar 100mg PO daily Prophylaxis - GI: protonix - DVT: SCDs, lovenox Disposition: Pending UC cultures to determine length and sensitivity for antibiotic regimen. May need PICC line and outpatient IVF infusion. DW . Dr. Hayes, Ninfa Gillis DO, PGY-1 <Alisa Hayes V - Last Filed: 11/10/17 09:47> Objective - Vital Signs/Intake and Output Vital Signs (last 24 hours): Temp Pulse Resp BP Pulse Ox 98.2 F 76 20 112/74 98 11/09/17 23:45 11/09/17 23:45 11/09/17 23:45 11/09/17 23:45 11/09/17 23:45 Intake and Output: 11/10/17 11/10/17 06:59 18:59 Intake Total 400 Balance 400 - Medications Medications: Current Medications Acetaminophen (Tylenol 325mg Tab) 650 mg PO Q6 PRN PRN Reason: Fever >100.4 F Last Admin: 11/07/17 11:15 Dose: 650 mg Al Hydrox/Mg Hydrox/Simethicone (Maalox 30 Ml) 30 ml PO TID PRN PRN Reason: Indigestion / Heartburn Benzocaine/Menthol (Cepacol Sore Throat) 1 andie MT QID [facility] Last Admin: 11/09/17 21:16 Dose: 1 andie Enoxaparin Sodium (Lovenox) 40 mg SC DAILY [facility] Last Admin: 11/09/17 10:12 Dose: 40 mg Meropenem 1 gm/ Sodium (Chloride) 100 mls @ 100 mls/hr IVPB Q8 LETY PRN Reason: Protocol Last Admin: 11/10/17 05:25 Dose: 100 mls/hr Sodium Chloride (Sodium Chloride 0.9%) 1,000 mls @ 75 mls/hr IV .[id number] [facility] Last Admin: 11/09/17 22:10 Dose: Not Given Losartan Potassium (Cozaar) 100 mg PO DAILY [facility] Last Admin: 11/09/17 10:11 Dose: 100 mg Morphine Sulfate (Morphine) 1 mg IVP Q6 PRN PRN Reason: Pain, severe (8-10) Last Admin: 11/09/17 14:27 Dose: 1 mg Pantoprazole Sodium (Protonix Ec Tab) 40 mg PO DAILY [facility] Last Admin: 11/09/17 10:10 Dose: 40 mg Phenazopyridine HCl (Pyridium) 100 mg PO TIDPC [facility] Last Admin: 11/09/17 17:20 Dose: 100 mg Saccharomyces Boulardii (Florastor) 250 mg PO Q12 [facility] Last Admin: 11/09/17 21:21 Dose: 250 mg Simethicone (Mylicon Liq) 40 mg PO QID [facility] Last Admin: 11/09/17 22:11 Dose: 40 mg - Labs Labs: 11/10/17 07:47 11/10/17 07:47 Attending/Attestation - Attestation I have personally seen and examined this patient.: Yes I have fully participated in the care of the patient.: Yes I have reviewed all pertinent clinical information, including history, physical exam and plan: Yes Notes (Text): This is late computer entry for 11/05/17. Patient seen, examined, and case discussed with day-time resident. Patient reports b/l lower quadrant pains, suprapubic pain, and b/l flank pain. Patient has prior urine culture from 10/21/17 positive for ESBL+; started on Meropenem IV yesterday. We are awaiting urine and blood cultures result. Patient completed bladder US which shows renal cyst which she was advised she will need follow-up on. Assessment/Plan 1) ESBL+ Pyleonephritis * On contact isolation * Refractory to PO antibiotics * Urine culture (10/21/17): +ESBL * Pending urine culture (11/04/17): pending * ID Consulted - Dr. 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 Compensatory enlargement right kidney which also contains multiple small calcifications as well as small cyst. Probable hyperdense cyst lower pole right kidney however chronic scarring changes may contribute . Prominent right renal pelvis the with on what appears represent mild columnization of the proximal right ureter. No obvious ureteral calculi. Probable hyperdense cyst lower pole right kidney. Urologic consultation recommended if not already performed. No evidence of right-sided hydronephrosis or ureteral calculi seen. Mild bladder wall thickening in part due to incomplete distention however correlation with urinalysis recommended. In situ Copper-T IUD. * Nephrology (Dr. lala) on board-->help appreciated * Urology (Dr. Ro reyna) on board-->help appreciated * NS @ 100cc/hr * Meropenem 1gm IVPB Q8H (active since 11/04/17) * Florastor 250mg PO BID * Blood culture (11/04/17): pending 2) Hx Left Upper Pole Partial Nephrectomy with Ureterectomy Hx Left Atropic Kidney * Nephrology consulted - Dr. Lala - help appreciated * Urology consulted - Dr. Ivon Reyna * Renal and bladder US (11/05/17) : bilateral nonsobtructing renal calculi, mild right pleviectasis, right renal cyst, atrophic left kidney 3) History of Hypertension * Restarted Cozaar 100mg PO daily 4) Prophylaxis * GI PPx: protonix 40mg PO daily * DVT PPx: SCDs, lovenox 40mg subqdaily Disposition: Pending UC cultures to determine length and sensitivity for antibiotic regimen. May need PICC line and outpatient IVF infusion pending result.
--- NOTE | 2017-11-05 22:01 | CP.PCM.PN ---
Subjective - Date & Time of Evaluation Date of Evaluation: 11/12/17 Time of Evaluation: 03:00 - Subjective Subjective: dictated Objective - Vital Signs/Intake and Output Vital Signs (last 24 hours): Temp Pulse Resp BP Pulse Ox 98.3 F 94 H 20 114/75 99 11/05/17 16:00 11/05/17 16:00 11/05/17 16:00 11/05/17 16:00 11/05/17 16:00 Intake and Output: 11/05/17 11/06/17 18:59 06:59 Intake Total 1160 Balance 1160 - Medications Medications: Current Medications Acetaminophen (Tylenol 325mg Tab) 650 mg PO Q6 PRN PRN Reason: Fever >100.4 F Enoxaparin Sodium (Lovenox) 40 mg SC DAILY [facility] Last Admin: 11/05/17 10:30 Dose: 40 mg Sodium Chloride (Sodium Chloride 0.9%) 1,000 mls @ 100 mls/hr IV .Q10H [facility] Last Admin: 11/05/17 19:11 Dose: 100 mls/hr Meropenem 1 gm/ Sodium (Chloride) 100 mls @ 100 mls/hr IVPB Q8 LETY PRN Reason: Protocol Last Admin: 11/05/17 21:23 Dose: 100 mls/hr Losartan Potassium (Cozaar) 100 mg PO DAILY [facility] Last Admin: 11/05/17 10:30 Dose: 100 mg Morphine Sulfate (Morphine) 1 mg IVP Q6H PRN PRN Reason: Pain, severe (8-10) Pantoprazole Sodium (Protonix Ec Tab) 40 mg PO DAILY [facility] Last Admin: 11/05/17 10:30 Dose: 40 mg Saccharomyces Boulardii (Florastor) 250 mg PO Q12 [facility] Last Admin: 11/05/17 21:23 Dose: 250 mg - Labs Labs: 11/05/17 06:30 11/05/17 06:30
--- NOTE | 2017-11-06 02:37 | PN ---
DATE: 11/05/2017 SUBJECTIVE: The patient was seen today. She feels slightly better. 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 She still has pain in the right flank and also has pain suprapubically. Has no nausea, no vomiting. No diarrhea today. No chills. PHYSICAL EXAMINATION: VITAL SIGNS: T-max 98.3, pulse 85, blood pressure 120/75, respirations are 20. HEENT: Head is atraumatic and normocephalic. She is pale. NECK: Supple. LUNGS: Clear. HEART: S1, S2 regular. ABDOMEN: Soft and nontender. No guarding. No rigidity present. EXTREMITIES: Have no edema. MUSCULOSKELETAL: She does have CVA tenderness more on the right than the left and mild suprapubic tenderness. LABORATORY DATA: Hemoglobin is 12.2, white count 7.2. Urine culture at this time is negative, but the initial one did have ESBL and she is in isolation. She was seen by the renal. CAT scan was done, abdomen and pelvis CT which shows left kidney remains significantly atropic and contains scattered calcifications. No evidence of left sided hydro, multiple small calcifications are seen throughout the right kidney; however, no evidence of right-sided hydronephrosis, small cystic foci again seen in the right kidney, noted is a small more hyperdense in focus, lower pole right kidney that could represent hyperdense cyst. ASSESSMENT AND PLAN: She has lot of cyst, has bilateral calcifications, stones, bladder shows a possibility of cystitis, which is not excluded, is incompletely distended, and she also has a copper intrauterine (contraceptive) device in the reproductive in situ. So at this time, I would leave her on the Merrem, just monitor the renal functions and Renal is on the case and give her at least 7 days of treatment treating for pyelonephritis and cystitis and today is day 2 of her treatment. We will follow as needed. Hill Weeks MD
[2017-11-06] MEDS: Meropenem 1 GM in Sodium Chloride 0.9% 100 ML IVPB SCH ×3 (05:25→21:33)
[2017-11-06] MEDS: Sodium Chloride 0.9% 1,000 ML IV SCH ×2 (05:30→17:52)
[2017-11-06 07:50] LABS: BASO # 0.1 K/uL (0.0-0.2); BASO % 0.8 % (0.0-2.0); EOS # 0.3 K/uL (0.0-0.7); EOS % 3.9 % (0.0-4.0); HEMOGLOBIN 12.6 g/dL (11.0-16.0); LYMPH # 2.8 K/uL (1.0-4.3); LYMPH % 31.7 % (20.0-40.0); MEAN CELL VOLUME 90.7 fL (81.0-99.0); MEAN CORPUSCULAR HEMOGLOBIN 31.8 pg (27.0-31.0); MEAN CORPUSCULAR HGB CONC 35.1 g/dL (33.0-37.0); MEAN PLATELET VOLUME 8.4 fL (7.2-11.7); MONO # 0.5 K/uL (0.0-0.8); MONO % 5.4 % (0.0-10.0); NEUT # 5.1 K/uL (1.8-7.0); NEUT % 58.2 % (50.0-75.0); NRBC % 0.1 % (0.0-2.0); RBC 3.96 Mil/uL (3.80-5.20); RED CELL DISTRIBUTION WIDTH 13.4 % (11.5-14.5); WHITE BLOOD COUNT 8.8 K/uL (4.8-10.8)
[2017-11-06 08:00] LABS: ALB/GLOB RATIO 1.2 (1.0-2.1); ALBUMIN 3.8 g/dL (3.5-5.0); ALT/SGPT 43 U/L (9-52); AST/SGOT 26 U/L (14-36); BLOOD UREA NITROGEN 12 mg/dL (7-17); CALCIUM 8.9 mg/dl (8.6-10.4); GFR AFRICAN-AMERICAN > 60; GFR NON-AFRICAN AMERICAN > 60
[2017-11-06] MEDS: Pantoprazole 40 mg EC Tab PO SCH (10:18)
[2017-11-06] MEDS: Saccharomyces Boulardi 250 mg Cap PO SCH ×2 (10:18→21:32)
[2017-11-06] MEDS: Enoxaparin 40 mg Syringe SC SCH (11:19)
--- NOTE | 2017-11-06 13:48 | CP.PCM.PN ---
Subjective - Date & Time of Evaluation Date of Evaluation: 11/06/17 Time of Evaluation: 13:46 - Subjective Subjective: no distress labs reviewed on AB some dysuria no chest pain no sob no nausea no cough no headache no rash no fever no foot pain Objective - Vital Signs/Intake and Output Vital Signs (last 24 hours): Temp Pulse Resp BP Pulse Ox 97.9 F 62 20 136/79 99 11/06/17 00:00 11/06/17 00:00 11/06/17 00:00 11/06/17 00:00 11/06/17 00:00 Intake and Output: 11/06/17 11/06/17 06:59 18:59 Intake Total 1200 Balance 1200 - Medications Medications: Current Medications Acetaminophen (Tylenol 325mg Tab) 650 mg PO Q6 PRN PRN Reason: Fever >100.4 F Enoxaparin Sodium (Lovenox) 40 mg SC DAILY [facility] Last Admin: 11/06/17 11:19 Dose: 40 mg Sodium Chloride (Sodium Chloride 0.9%) 1,000 mls @ 100 mls/hr IV .Q10H [facility] Last Admin: 11/06/17 05:30 Dose: 100 mls/hr Meropenem 1 gm/ Sodium (Chloride) 100 mls @ 100 mls/hr IVPB Q8 [facility] PRN Reason: Protocol Last Admin: 11/06/17 05:25 Dose: 100 mls/hr Losartan Potassium (Cozaar) 100 mg PO DAILY [facility] Last Admin: 11/06/17 10:19 Dose: 100 mg Morphine Sulfate (Morphine) 1 mg IVP Q6H PRN PRN Reason: Pain, severe (8-10) Pantoprazole Sodium (Protonix Ec Tab) 40 mg PO DAILY [facility] Last Admin: 11/06/17 10:18 Dose: 40 mg Phenazopyridine HCl (Pyridium) 100 mg PO TIDPC [facility] Potassium Phos/Sodium Phos (Neutra-Phos) 1 pkt PO BID [facility] Stop: 11/07/17 14:01 Saccharomyces Boulardii (Florastor) 250 mg PO Q12 [facility] Last Admin: 11/06/17 10:18 Dose: 250 mg - Labs Labs: 11/06/17 07:22 11/06/17 07:22 - Constitutional Appears: Non-toxic, No Acute Distress - Head Exam Head Exam: ATRAUMATIC, NORMAL INSPECTION - Eye Exam Eye Exam: EOMI - ENT Exam ENT Exam: Mucous Membranes Moist - Neck Exam Neck Exam: Full ROM. absent: Lymphadenopathy - Respiratory Exam Respiratory Exam: Clear to Ausculation Bilateral. absent: Accessory Muscle Use - Cardiovascular Exam Cardiovascular Exam: REGULAR RHYTHM. absent: Rubs - GI/Abdominal Exam GI & Abdominal Exam: Soft. absent: Tenderness - Extremities Exam Extremities Exam: absent: Pedal Edema Assessment and Plan - Assessment and Plan (Free Text) Assessment: dysplastic kidneys good renal function ESBL uti continue AB renal follow up on discharge
--- NOTE | 2017-11-06 14:20 | CP.PCM.PN ---
Subjective - Date & Time of Evaluation Date of Evaluation: 11/06/17 Time of Evaluation: 02:00 - Subjective Subjective: dictated Objective - Vital Signs/Intake and Output Vital Signs (last 24 hours): Temp Pulse Resp BP Pulse Ox 97.9 F 62 20 136/79 99 11/06/17 00:00 11/06/17 00:00 11/06/17 00:00 11/06/17 00:00 11/06/17 00:00 Intake and Output: 11/06/17 11/06/17 06:59 18:59 Intake Total 1200 Balance 1200 - Medications Medications: Current Medications Acetaminophen (Tylenol 325mg Tab) 650 mg PO Q6 PRN PRN Reason: Fever >100.4 F Enoxaparin Sodium (Lovenox) 40 mg SC DAILY [facility] Last Admin: 11/06/17 11:19 Dose: 40 mg Sodium Chloride (Sodium Chloride 0.9%) 1,000 mls @ 100 mls/hr IV .Q10H [facility] Last Admin: 11/06/17 05:30 Dose: 100 mls/hr Meropenem 1 gm/ Sodium (Chloride) 100 mls @ 100 mls/hr IVPB Q8 [facility] PRN Reason: Protocol Last Admin: 11/06/17 14:18 Dose: 100 mls/hr Losartan Potassium (Cozaar) 100 mg PO DAILY [facility] Last Admin: 11/06/17 10:19 Dose: 100 mg Morphine Sulfate (Morphine) 1 mg IVP Q6H PRN PRN Reason: Pain, severe (8-10) Pantoprazole Sodium (Protonix Ec Tab) 40 mg PO DAILY [facility] Last Admin: 11/06/17 10:18 Dose: 40 mg Phenazopyridine HCl (Pyridium) 100 mg PO TIDPC [facility] Potassium Phos/Sodium Phos (Neutra-Phos) 1 pkt PO BID [facility] Stop: 11/07/17 14:01 Saccharomyces Boulardii (Florastor) 250 mg PO Q12 [facility] Last Admin: 11/06/17 10:18 Dose: 250 mg - Labs Labs: 11/06/17 07:22 11/06/17 07:22
--- NOTE | 2017-11-06 15:04 | CP.PCM.PN ---
<Ninfa Gillis - Last Filed: 11/06/17 14:55> Subjective - Date & Time of Evaluation Date of Evaluation: 11/06/17 Time of Evaluation: 09:00 - Subjective Subjective: Medicine Note for Hospitalist Service- Dr. Hayes Patient was seen and examined at bedside. Patient reports her bilateral flank pain and suprapubic tenderness is still present but the pain is less severe. Denied fever, chills, headache, chest pain, n/v/d/c, or dysuria/hematuria. Objective - Vital Signs/Intake and Output Vital Signs (last 24 hours): Temp Pulse Resp BP Pulse Ox 97.9 F 62 20 136/79 99 11/06/17 00:00 11/06/17 00:00 11/06/17 00:00 11/06/17 00:00 11/06/17 00:00 Intake and Output: 11/06/17 11/06/17 06:59 18:59 Intake Total 1200 1200 Balance 1200 1200 - Medications Medications: Current Medications Acetaminophen (Tylenol 325mg Tab) 650 mg PO Q6 PRN PRN Reason: Fever >100.4 F Enoxaparin Sodium (Lovenox) 40 mg SC DAILY [facility] Last Admin: 11/06/17 11:19 Dose: 40 mg Sodium Chloride (Sodium Chloride 0.9%) 1,000 mls @ 100 mls/hr IV .Q10H [facility] Last Admin: 11/06/17 05:30 Dose: 100 mls/hr Meropenem 1 gm/ Sodium (Chloride) 100 mls @ 100 mls/hr IVPB Q8 [facility] PRN Reason: Protocol Last Admin: 11/06/17 14:18 Dose: 100 mls/hr Losartan Potassium (Cozaar) 100 mg PO DAILY [facility] Last Admin: 11/06/17 10:19 Dose: 100 mg Pantoprazole Sodium (Protonix Ec Tab) 40 mg PO DAILY [facility] Last Admin: 11/06/17 10:18 Dose: 40 mg Phenazopyridine HCl (Pyridium) 100 mg PO TIDPC [facility] Potassium Phos/Sodium Phos (Neutra-Phos) 1 pkt PO BID [facility] Stop: 11/07/17 14:01 Saccharomyces Boulardii (Florastor) 250 mg PO Q12 [facility] Last Admin: 11/06/17 10:18 Dose: 250 mg - Labs Labs: 11/06/17 07:22 11/06/17 07:22 - Additional Findings Additional findings: - Constitutional Appears: No Acute Distress - Head Exam Head Exam: NORMAL INSPECTION, NORMOCEPHALIC - Eye Exam Eye Exam: EOMI, Normal appearance, PERRL. absent: Nystagmus Pupil Exam: NORMAL ACCOMODATION - ENT Exam ENT Exam: Mucous Membranes Moist, Normal Exam - Respiratory Exam Respiratory Exam: Clear to Auscultation Bilateral, NORMAL BREATHING PATTERN. absent: Decreased Breath Sounds, Wheezes - Cardiovascular Exam Cardiovascular Exam: REGULAR RHYTHM, RRR, +S1, +S2 - GI/Abdominal Exam GI & Abdominal Exam: Normal Bowel Sounds, Soft, Tenderness (LLQ, RLQ, suprapubic tenderness ). absent: Distended, Organomegaly - Rectal Exam Rectal Exam: Deferred - Extremities Exam Extremities exam: Positive for: normal inspection, pedal pulses present. Negative for: pedal edema, tenderness - Back Exam Back exam: CVA tenderness (L), CVA tenderness (R), NORMAL INSPECTION. absent: muscle spasm - Neurological Exam Neurological exam: Alert, Oriented x3 - Psychiatric Exam Psychiatric exam: Normal Affect, Normal Mood - Skin Skin Exam: Dry, Intact, Normal Color, Warm Assessment and Plan - Assessment and Plan (Free Text) Assessment: This is a 37 year old female with PMHx HTN, Nephrolithiasis, and s/p Left renal exploration with left upper pole partial nephrectomy with ureterectomy c/o right flank pain. Found to have ESBL + UC on 10/21/17. Plan: ESBL UTI - ID Consulted - Dr. Weeks - help appreciated - Multiple UTIs in the past with ESBL in urine and wounds - Possible colonization - CT Abdomen, Pelvis - Re- demonstrated are significant atrophic changes of the right kidney with multiple scattered calcifications. Compensatory enlargement right kidney which also contains multiple small calcifications as well as small cyst. Probable hyperdense cyst lower pole right kidney however chronic scarring changes may contribute . Prominent right renal pelvis the with on what appears represent mild columnization of the proximal right ureter. No obvious ureteral calculi. Probable hyperdense cyst lower pole right kidney. . . Urologic consultation recommended if not already performed. No evidence of right-sided hydronephrosis or ureteral calculi seen. . Mild bladder wall thickening in part due to incomplete distention however correlation with urinalysis recommended. In situ Copper-T IUD. 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 Lala - help appreciated - Urology consulted - Dr. Ivon Reyna - Renal and bladder US - renal hyperdense cyst - will need repeat in 3-6 months Hx HTN - Restarted Cozaar 100mg PO daily Prophylaxis - GI: protonix - DVT: SCDs, lovenox Disposition: WILL CONTINUE WITH MEROPENEM Q8H until 11/12/17 - WILL BE DISCHARGED - NO NEED FOR PICC LINE - will complete course during hospital stay. DW Dr. Dr. Hayes, Ninfa Gillis DO, PGY-1 <Alisa Hayes V - Last Filed: 11/10/17 09:52> Objective - Vital Signs/Intake and Output Vital Signs (last 24 hours): Temp Pulse Resp BP Pulse Ox 98.2 F 76 20 112/74 98 11/09/17 23:45 11/09/17 23:45 11/09/17 23:45 11/09/17 23:45 11/09/17 23:45 Intake and Output: 11/10/17 11/10/17 06:59 18:59 Intake Total 400 Balance 400 - Medications Medications: Current Medications Acetaminophen (Tylenol 325mg Tab) 650 mg PO Q6 PRN PRN Reason: Fever >100.4 F Last Admin: 11/07/17 11:15 Dose: 650 mg Al Hydrox/Mg Hydrox/Simethicone (Maalox 30 Ml) 30 ml PO TID PRN PRN Reason: Indigestion / Heartburn Benzocaine/Menthol (Cepacol Sore Throat) 1 andie MT QID [facility] Last Admin: 11/09/17 21:16 Dose: 1 andie Enoxaparin Sodium (Lovenox) 40 mg SC DAILY [facility] Last Admin: 11/09/17 10:12 Dose: 40 mg Meropenem 1 gm/ Sodium (Chloride) 100 mls @ 100 mls/hr IVPB Q8 [facility] PRN Reason: Protocol Last Admin: 11/10/17 05:25 Dose: 100 mls/hr Sodium Chloride (Sodium Chloride 0.9%) 1,000 mls @ 75 mls/hr IV .[id number] [facility] Last Admin: 11/09/17 22:10 Dose: Not Given Losartan Potassium (Cozaar) 100 mg PO DAILY [facility] Last Admin: 11/09/17 10:11 Dose: 100 mg Morphine Sulfate (Morphine) 1 mg IVP Q6 PRN PRN Reason: Pain, severe (8-10) Last Admin: 11/09/17 14:27 Dose: 1 mg Pantoprazole Sodium (Protonix Ec Tab) 40 mg PO DAILY [facility] Last Admin: 11/09/17 10:10 Dose: 40 mg Phenazopyridine HCl (Pyridium) 100 mg PO TIDPC [facility] Last Admin: 11/09/17 17:20 Dose: 100 mg Saccharomyces Boulardii (Florastor) 250 mg PO Q12 [facility] Last Admin: 11/09/17 21:21 Dose: 250 mg Simethicone (Mylicon Liq) 40 mg PO QID [facility] Last Admin: 11/09/17 22:11 Dose: 40 mg - Labs Labs: 11/10/17 07:47 11/10/17 07:47 Attending/Attestation - Attestation I have personally seen and examined this patient.: Yes I have fully participated in the care of the patient.: Yes I have reviewed all pertinent clinical information, including history, physical exam and plan: Yes Notes (Text): This is late computer entry for 11/06/17. Patient reports b/l lower quadrant pains, suprapubic pain, and b/l flank pain; which are improving. Patient has prior urine culture from 10/21/17 positive for ESBL+; repeat cultures are negative. Infectious Disease has recommended for at least 7 days of IV abx. Assessment/Plan 1) ESBL+ Pyleonephritis * On contact isolation * Refractory to PO antibiotics * Urine culture (10/21/17): +ESBL * Urine culture (11/04/17): No growth * ID Consulted - Dr. Weeks - help appreciated * f/u blood cultures, repeat urine culture * Patient has history of multiple UTIs in the past with ESBL in urine and prior eyelet cutter wounds * CT Abdomen, Pelvis w/p PO or IV contrast (11/04/17) - Re- demonstrated are significant atrophic changes of the right kidney with multiple scattered calcifications. Compensatory enlargement right kidney which also contains multiple small calcifications as well as small cyst. Probable hyperdense cyst lower pole right kidney however chronic scarring changes may contribute . Prominent right renal pelvis the with on what appears represent mild columnization of the proximal right ureter. No obvious ureteral calculi. Probable hyperdense cyst lower pole right kidney. Urologic consultation recommended if not already performed. No evidence of right-sided hydronephrosis or ureteral calculi seen. Mild bladder wall thickening in part due to incomplete distention however correlation with urinalysis recommended. In situ Copper-T IUD. * Nephrology (Dr. lala) on board-->help appreciated * Urology (Dr. 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 Lala - help appreciated * Urology consulted - Dr. Ivon Reyna * Renal and bladder US (11/05/17) : bilateral nonsobtructing renal calculi, mild right pleviectasis, right renal cyst, atrophic left kidney 3) Renal Cyst * Renal and bladder US (11/05/17) : bilateral nonsobtructing renal calculi, mild right pleviectasis, right renal cyst, atrophic left kidney * Will need repeat Renal US to monitor in 3-6 months 4) History of Hypertension * Restarted Cozaar 100mg PO daily 5) Prophylaxis * GI PPx: protonix 40mg PO daily * DVT PPx: SCDs, lovenox 40mg subqdaily Disposition: Will continue with Meropenem until 11/11/17 to complete at least 7 days of IV abx. No PICC line at this time.
[2017-11-06] MEDS: Potassium & Sodium Phosphate PO SCH (17:43)
--- NOTE | 2017-11-06 21:47 | CP.PCM.PN ---
Subjective - Date & Time of Evaluation Date of Evaluation: 11/06/17 Time of Evaluation: 01:00 - Subjective Subjective: dictated Objective - Vital Signs/Intake and Output Vital Signs (last 24 hours): Temp Pulse Resp BP Pulse Ox 98.1 F 73 20 123/80 97 11/06/17 16:00 11/06/17 16:00 11/06/17 16:00 11/06/17 16:00 11/06/17 16:00 Intake and Output: 11/06/17 11/07/17 18:59 06:59 Intake Total 1200 900 Balance 1200 900 - Medications Medications: Current Medications Acetaminophen (Tylenol 325mg Tab) 650 mg PO Q6 PRN PRN Reason: Fever >100.4 F Enoxaparin Sodium (Lovenox) 40 mg SC DAILY [facility] Last Admin: 11/06/17 11:19 Dose: 40 mg Sodium Chloride (Sodium Chloride 0.9%) 1,000 mls @ 100 mls/hr IV .Q10H [facility] Last Admin: 11/06/17 17:52 Dose: 100 mls/hr Meropenem 1 gm/ Sodium (Chloride) 100 mls @ 100 mls/hr IVPB Q8 [facility] PRN Reason: Protocol Last Admin: 11/06/17 21:33 Dose: 100 mls/hr Losartan Potassium (Cozaar) 100 mg PO DAILY [facility] Last Admin: 11/06/17 10:19 Dose: 100 mg Pantoprazole Sodium (Protonix Ec Tab) 40 mg PO DAILY [facility] Last Admin: 11/06/17 10:18 Dose: 40 mg Phenazopyridine HCl (Pyridium) 100 mg PO TIDPC [facility] Last Admin: 11/06/17 17:43 Dose: 100 mg Potassium Phos/Sodium Phos (Neutra-Phos) 1 pkt PO BID [facility] Stop: 11/07/17 14:01 Last Admin: 11/06/17 17:43 Dose: 1 pkt Saccharomyces Boulardii (Florastor) 250 mg PO Q12 [facility] Last Admin: 11/06/17 21:32 Dose: 250 mg - Labs Labs: 11/06/17 07:22 11/06/17 07:22
[2017-11-07] MEDS: Sodium Chloride 0.9% 1,000 ML IV SCH (02:59)
--- NOTE | 2017-11-07 03:15 | PN ---
DATE: 11/06/2017 SUBJECTIVE: The patient was seen today. She was still complaining of pain on the right flank and some dysuria and she is on IV antibiotics, but has been feeling little better. PHYSICAL EXAMINATION: VITAL SIGNS: T-max is 98.1, pulse 73, blood pressure 123/80, respirations are 20. HEENT: Head is atraumatic. NECK: Supple. LUNGS: Clear. HEART: S1 and S2, regular. ABDOMEN: Soft and nontender. Mild suprapubic tenderness present. EXTREMITIES: Have no edema. She has mild right CVA tenderness as well as left side. ASSESSMENT AND PLAN: The patient is tolerating antibiotics and we will continue with the antibiotics at this time. We will follow Renal and Urology evaluation. White count is 8.8 and her creatinine is 0.9. She is on Merrem. Her urine culture from 10/21/2017 had extended-spectrum beta-lactamase, hence we have given meropenem and to continue it until 11/12/2017 as planned. Hill Weeks MD
[2017-11-07] MEDS: Meropenem 1 GM in Sodium Chloride 0.9% 100 ML IVPB SCH ×3 (05:46→21:35)
--- NOTE | 2017-11-07 06:58 | CP.PCM.PN ---
<Ninfa Gillis - Last Filed: 11/07/17 06:57> Subjective - Date & Time of Evaluation Date of Evaluation: 11/07/17 Time of Evaluation: 07:00 - Subjective Subjective: Medicine Note for Hospitalist Service- Dr. Hayes Patient was seen and examined at bedside. Patient reports her bilateral flank pain and suprapubic tenderness is still present but the pain is less severe. Admitted dysruia is improving. Denied fever, chills, headache, chest pain, n/v/d /c, or hematuria. Objective - Vital Signs/Intake and Output Vital Signs (last 24 hours): Temp Pulse Resp BP Pulse Ox 98.2 F 73 20 112/70 95 11/07/17 00:00 11/07/17 00:00 11/07/17 00:00 11/07/17 00:00 11/07/17 00:00 Intake and Output: 11/06/17 11/07/17 18:59 06:59 Intake Total 1200 900 Balance 1200 900 - Medications Medications: Current Medications Acetaminophen (Tylenol 325mg Tab) 650 mg PO Q6 PRN PRN Reason: Fever >100.4 F Enoxaparin Sodium (Lovenox) 40 mg SC DAILY [facility] Last Admin: 11/06/17 11:19 Dose: 40 mg Sodium Chloride (Sodium Chloride 0.9%) 1,000 mls @ 100 mls/hr IV .Q10H [facility] Last Admin: 11/07/17 02:59 Dose: 100 mls/hr Meropenem 1 gm/ Sodium (Chloride) 100 mls @ 100 mls/hr IVPB Q8 LETY PRN Reason: Protocol Last Admin: 11/07/17 05:46 Dose: 100 mls/hr Losartan Potassium (Cozaar) 100 mg PO DAILY [facility] Last Admin: 11/06/17 10:19 Dose: 100 mg Pantoprazole Sodium (Protonix Ec Tab) 40 mg PO DAILY [facility] Last Admin: 11/06/17 10:18 Dose: 40 mg Phenazopyridine HCl (Pyridium) 100 mg PO TIDPC [facility] Last Admin: 11/06/17 17:43 Dose: 100 mg Potassium Phos/Sodium Phos (Neutra-Phos) 1 pkt PO BID [facility] Stop: 11/07/17 14:01 Last Admin: 11/06/17 17:43 Dose: 1 pkt Saccharomyces Boulardii (Florastor) 250 mg PO Q12 LETY Last Admin: 11/06/17 21:32 Dose: 250 mg - Labs Labs: 11/06/17 07:22 11/06/17 07:22 - Additional Findings Additional findings: - Constitutional Appears: No Acute Distress - Head Exam Head Exam: NORMAL INSPECTION, NORMOCEPHALIC - Eye Exam Eye Exam: EOMI, Normal appearance, PERRL. absent: Nystagmus Pupil Exam: NORMAL ACCOMODATION - ENT Exam ENT Exam: Mucous Membranes Moist, Normal Exam - Respiratory Exam Respiratory Exam: Clear to Auscultation Bilateral, NORMAL BREATHING PATTERN. absent: Decreased Breath Sounds, Wheezes - Cardiovascular Exam Cardiovascular Exam: REGULAR RHYTHM, RRR, +S1, +S2 - GI/Abdominal Exam GI & Abdominal Exam: Normal Bowel Sounds, Soft, Tenderness (LLQ, RLQ, suprapubic tenderness ). absent: Distended, Organomegaly - Rectal Exam Rectal Exam: Deferred - Extremities Exam Extremities exam: Positive for: normal inspection, pedal pulses present. Negative for: pedal edema, tenderness - Back Exam Back exam: CVA tenderness (L), CVA tenderness (R), NORMAL INSPECTION. absent: muscle spasm - Neurological Exam Neurological exam: Alert, Oriented x3 - Psychiatric Exam Psychiatric exam: Normal Affect, Normal Mood - Skin Skin Exam: Dry, Intact, Normal Color, Warm Assessment and Plan - Assessment and Plan (Free Text) Assessment: This is a 37 year old female with PMHx HTN, Nephrolithiasis, and s/p Left renal exploration with left upper pole partial nephrectomy with ureterectomy c/o right flank pain. Found to have ESBL + UC on 10/21/17. Plan: ESBL UTI - ID Consulted - Dr. Weeks - help appreciated - Multiple UTIs in the past with ESBL in urine and wounds - Possible colonization - CT Abdomen, Pelvis - Re- demonstrated are significant atrophic changes of the right kidney with multiple scattered calcifications. Compensatory enlargement right kidney which also contains multiple small calcifications as well as small cyst. Probable hyperdense cyst lower pole right kidney however chronic scarring changes may contribute . Prominent right renal pelvis the with on what appears represent mild columnization of the proximal right ureter. No obvious ureteral calculi. Probable hyperdense cyst lower pole right kidney. . . Urologic consultation recommended if not already performed. No evidence of right-sided hydronephrosis or ureteral calculi seen. . Mild bladder wall thickening in part due to incomplete distention however correlation with urinalysis recommended. In situ Copper-T IUD. 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 Lala - help appreciated - Urology consulted - Dr. Ivon Reyna - Renal and bladder US - renal hyperdense cyst - will need repeat ultrasound in 3-6 months Hx HTN - Restarted Cozaar 100mg PO daily Prophylaxis - GI: protonix - DVT: SCDs, lovenox Disposition: WILL CONTINUE WITH MEROPENEM Q8H until 11/12/17 - WILL BE DISCHARGED - NO NEED FOR PICC LINE - will complete course during hospital stay. DW Dr. Dr. Hayes, Ninfa Gillis DO, PGY-1 <Alisa Hayes V - Last Filed: 11/10/17 09:58> Objective - Vital Signs/Intake and Output Vital Signs (last 24 hours): Temp Pulse Resp BP Pulse Ox 98.2 F 76 20 112/74 98 11/09/17 23:45 11/09/17 23:45 11/09/17 23:45 11/09/17 23:45 11/09/17 23:45 Intake and Output: 11/10/17 11/10/17 06:59 18:59 Intake Total 400 Balance 400 - Medications Medications: Current Medications Acetaminophen (Tylenol 325mg Tab) 650 mg PO Q6 PRN PRN Reason: Fever >100.4 F Last Admin: 11/07/17 11:15 Dose: 650 mg Al Hydrox/Mg Hydrox/Simethicone (Maalox 30 Ml) 30 ml PO TID PRN PRN Reason: Indigestion / Heartburn Benzocaine/Menthol (Cepacol Sore Throat) 1 andie MT QID [facility] Last Admin: 11/09/17 21:16 Dose: 1 andie Enoxaparin Sodium (Lovenox) 40 mg SC DAILY [facility] Last Admin: 11/09/17 10:12 Dose: 40 mg Meropenem 1 gm/ Sodium (Chloride) 100 mls @ 100 mls/hr IVPB Q8 LETY PRN Reason: Protocol Last Admin: 11/10/17 05:25 Dose: 100 mls/hr Sodium Chloride (Sodium Chloride 0.9%) 1,000 mls @ 75 mls/hr IV .[id number] [facility] Last Admin: 11/09/17 22:10 Dose: Not Given Losartan Potassium (Cozaar) 100 mg PO DAILY [facility] Last Admin: 11/09/17 10:11 Dose: 100 mg Morphine Sulfate (Morphine) 1 mg IVP Q6 PRN PRN Reason: Pain, severe (8-10) Last Admin: 11/09/17 14:27 Dose: 1 mg Pantoprazole Sodium (Protonix Ec Tab) 40 mg PO DAILY [facility] Last Admin: 11/09/17 10:10 Dose: 40 mg Phenazopyridine HCl (Pyridium) 100 mg PO TIDPC [facility] Last Admin: 11/09/17 17:20 Dose: 100 mg Saccharomyces Boulardii (Florastor) 250 mg PO Q12 [facility] Last Admin: 11/09/17 21:21 Dose: 250 mg Simethicone (Mylicon Liq) 40 mg PO QID [facility] Last Admin: 11/09/17 22:11 Dose: 40 mg - Labs Labs: 11/10/17 07:47 11/10/17 07:47 Attending/Attestation - Attestation I have personally seen and examined this patient.: Yes I have fully participated in the care of the patient.: Yes I have reviewed all pertinent clinical information, including history, physical exam and plan: Yes Notes (Text): This is late computer entry for 11/07/17. Patient seen, examined, and case discussed with day-time resident. Patient has reported chest pain, that was burning associated with epigastric discomfort. NEDRA negative. EKG: normal; Chest xray: benign. Suspecting gerd, start supportive therapy such as Maalox. Patient's urinary symptoms continue to improve. Assessment/Plan 1) ESBL+ Pyleonephritis-->current * On contact isolation * Refractory to PO antibiotics * Urine culture (10/21/17): +ESBL * Urine culture (11/04/17): No growth * ID Consulted - Dr. 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 Compensatory enlargement right kidney which also contains multiple small calcifications as well as small cyst. Probable hyperdense cyst lower pole right kidney however chronic scarring changes may contribute . Prominent right renal pelvis the with on what appears represent mild columnization of the proximal right ureter. No obvious ureteral calculi. Probable hyperdense cyst lower pole right kidney. Urologic consultation recommended if not already performed. No evidence of right-sided hydronephrosis or ureteral calculi seen. Mild bladder wall thickening in part due to incomplete distention however correlation with urinalysis recommended. In situ Copper-T IUD. * Nephrology (Dr. lala) on board-->help appreciated * Urology (Dr. 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 Lala - help appreciated * Urology consulted - Dr. Ivon Reyna * Renal and bladder US (11/05/17) : bilateral nonsobtructing renal calculi, mild right pleviectasis, right renal cyst, atrophic left kidney 3) Renal Cyst-->chronic * Renal and bladder US (11/05/17) : bilateral nonsobtructing renal calculi, mild right pleviectasis, right renal cyst, atrophic left kidney * Will need repeat Renal US to monitor in 3-6 months 4) History of Hypertension-->chronic * Restarted Cozaar 100mg PO daily 5) Chest Pain-->Resolved * Chest xray (11/07/17): no focal infiltrate or effusion * EKG: NSR Troponin: negative * Suspecting secondary to gerd. Patient reports burning sensation over the chest. * Start Maalox 30ml PO TID PRN indigestion/heartburn 6) Prophylaxis * GI PPx: protonix 40mg PO daily * DVT PPx: SCDs, lovenox 40mg subqdaily Disposition: Will continue with Meropenem until 11/11/17 to complete at least 7 days of IV abx. No PICC line at this time.
[2017-11-07 07:45] LABS: BASO # 0.1 K/uL (0.0-0.2); BASO % 0.8 % (0.0-2.0); EOS # 0.3 K/uL (0.0-0.7); EOS % 4.1 % (0.0-4.0); HEMOGLOBIN 12.3 g/dL (11.0-16.0); LYMPH # 2.7 K/uL (1.0-4.3); LYMPH % 32.5 % (20.0-40.0); MEAN CELL VOLUME 89.7 fL (81.0-99.0); MEAN CORPUSCULAR HEMOGLOBIN 32.2 pg (27.0-31.0); MEAN CORPUSCULAR HGB CONC 35.9 g/dL (33.0-37.0); MEAN PLATELET VOLUME 8.4 fL (7.2-11.7); MONO # 0.4 K/uL (0.0-0.8); MONO % 4.9 % (0.0-10.0); NEUT # 4.7 K/uL (1.8-7.0); NEUT % 57.7 % (50.0-75.0); RBC 3.81 Mil/uL (3.80-5.20); RED CELL DISTRIBUTION WIDTH 12.9 % (11.5-14.5); WHITE BLOOD COUNT 8.2 K/uL (4.8-10.8)
[2017-11-07 07:48] LABS: ALB/GLOB RATIO 1.2 (1.0-2.1); ALBUMIN 4.3 g/dL (3.5-5.0); ALT/SGPT 39 U/L (9-52); AST/SGOT 33 U/L (14-36); BLOOD UREA NITROGEN 13 mg/dL (7-17); CALCIUM 8.6 mg/dl (8.6-10.4); GFR AFRICAN-AMERICAN > 60; GFR NON-AFRICAN AMERICAN > 60
[2017-11-07] MEDS: Enoxaparin 40 mg Syringe SC SCH (09:48)
[2017-11-07] MEDS: Saccharomyces Boulardi 250 mg Cap PO SCH ×2 (09:49→21:35)
[2017-11-07] MEDS: Potassium & Sodium Phosphate PO SCH (09:49)
--- NOTE | 2017-11-07 09:50 | RAD ---
Chest x-ray single frontal view History: Chest pain. Comparison: 03/27/2016 Findings: No focal infiltrate or effusion. Heart size within limits. Impression No focal infiltrate or effusion.
[2017-11-07] MEDS ORDERED: Pneumococcal 23-Valent Vaccine IM ONE (10:00)
--- NOTE | 2017-11-07 10:01 | CP.PCM.PN ---
Subjective - Date & Time of Evaluation Date of Evaluation: 11/07/17 Time of Evaluation: 09:58 - Subjective Subjective: alert; still with suprapubic pains no n, v, fevers, chills, SOB renal function stable HTN controlled Has atrophic left kidney, 1 hyperdense cyst in hypertrophic right kidney Objective - Vital Signs/Intake and Output Vital Signs (last 24 hours): Temp Pulse Resp BP Pulse Ox 98.6 F 68 17 121/77 97 11/07/17 07:44 11/07/17 09:47 11/07/17 09:47 11/07/17 09:47 11/07/17 09:47 Intake and Output: 11/07/17 11/07/17 06:59 18:59 Intake Total 1900 Balance 1900 - Medications Medications: Current Medications Acetaminophen (Tylenol 325mg Tab) 650 mg PO Q6 PRN PRN Reason: Fever >100.4 F Benzocaine/Menthol (Cepacol Sore Throat) 1 andie MT QID [facility] Enoxaparin Sodium (Lovenox) 40 mg SC DAILY [facility] Last Admin: 11/07/17 09:48 Dose: 40 mg Meropenem 1 gm/ Sodium (Chloride) 100 mls @ 100 mls/hr IVPB Q8 LETY PRN Reason: Protocol Last Admin: 11/07/17 05:46 Dose: 100 mls/hr Losartan Potassium (Cozaar) 100 mg PO DAILY [facility] Last Admin: 11/07/17 09:48 Dose: 100 mg Pantoprazole Sodium (Protonix Ec Tab) 40 mg PO DAILY [facility] Last Admin: 11/06/17 10:18 Dose: 40 mg Phenazopyridine HCl (Pyridium) 100 mg PO TIDPC [facility] Last Admin: 11/07/17 09:49 Dose: 100 mg Potassium Phos/Sodium Phos (Neutra-Phos) 1 pkt PO BID [facility] Stop: 11/07/17 14:01 Last Admin: 11/07/17 09:49 Dose: 1 pkt Saccharomyces Boulardii (Florastor) 250 mg PO Q12 [facility] Last Admin: 11/07/17 09:49 Dose: 250 mg - Labs Labs: 11/07/17 07:20 11/07/17 07:20 - Constitutional Appears: Non-toxic, No Acute Distress - Head Exam Head Exam: ATRAUMATIC, NORMAL INSPECTION - Eye Exam Eye Exam: EOMI, Normal appearance - Neck Exam Neck Exam: Normal Inspection. absent: Tenderness - Respiratory Exam Respiratory Exam: Clear to Ausculation Bilateral, NORMAL BREATHING PATTERN - Cardiovascular Exam Cardiovascular Exam: REGULAR RHYTHM, +S1 - GI/Abdominal Exam GI & Abdominal Exam: Soft, Tenderness - Extremities Exam Extremities Exam: absent: Pedal Edema, Tenderness - Neurological Exam Neurological Exam: Alert, CN II-XII Intact - Skin Skin Exam: Dry, Warm Assessment and Plan (1) Atrophy of left kidney Status: Acute (2) Urinary tract infection due to ESBL Klebsiella Status: Acute (3) Chronic hypertension Status: Acute (4) Renal cyst Status: Acute - Assessment and Plan (Free Text) Plan: Continue same meds Can follow pt as outpt for cyst, atrophic kidney
[2017-11-07 10:12] LABS: CK-MB 0.28 ng/mL (0.0-3.38)
[2017-11-07] MEDS: Benzocaine/Menthol (Cepacol) Lozenge MT SCH ×4 (11:08→21:37)
[2017-11-07] MEDS: Pantoprazole 40 mg EC Tab PO SCH (11:09)
[2017-11-07] MEDS ORDERED: Morphine 4 MG/ML VIAL IVP PRN (11:47)
[2017-11-08] MEDS: Meropenem 1 GM in Sodium Chloride 0.9% 100 ML IVPB SCH ×3 (05:58→21:53)
--- NOTE | 2017-11-08 06:37 | CP.PCM.PN ---
Addendum entered and electronically signed by Ninfa Gillis DO 11/08/17 12:29 : Spoke with Dr. Ro Reyna, agrees patient will stay to complete IV ABX course. Ordered renal differential study to access renal function of left kidney. History of nephrolithasis - will access with Abdominal xray. Due to the right renal cyst noted on US - will follow up with CT abdomen and pelvis with/ without IV contrast. Original Note: <Ninfa Gillis - Last Filed: 11/08/17 06:35> Subjective - Date & Time of Evaluation Date of Evaluation: 11/08/17 Time of Evaluation: 06:30 - Subjective Subjective: Medicine Note for Hospitalist Service- Dr. Hayes Patient was seen and examined at bedside. Patient reports her bilateral flank pain and suprapubic tenderness is still present but the pain is less severe. Admitted dysruia is improving. Denied fever, chills, headache, chest pain, n/v/d /c, or hematuria. Objective - Vital Signs/Intake and Output Vital Signs (last 24 hours): Temp Pulse Resp BP Pulse Ox 97.7 F 77 20 108/62 97 11/08/17 00:00 11/08/17 00:00 11/08/17 00:00 11/08/17 00:00 11/08/17 00:00 Intake and Output: 11/07/17 11/08/17 18:59 06:59 Intake Total 450 Balance 450 - Medications Medications: Current Medications Acetaminophen (Tylenol 325mg Tab) 650 mg PO Q6 PRN PRN Reason: Fever >100.4 F Last Admin: 11/07/17 11:15 Dose: 650 mg Al Hydrox/Mg Hydrox/Simethicone (Maalox 30 Ml) 30 ml PO TID PRN PRN Reason: Indigestion / Heartburn Benzocaine/Menthol (Cepacol Sore Throat) 1 andie MT QID [facility] Last Admin: 11/07/17 21:37 Dose: 1 andie Enoxaparin Sodium (Lovenox) 40 mg SC DAILY [facility] Last Admin: 11/07/17 09:48 Dose: 40 mg Meropenem 1 gm/ Sodium (Chloride) 100 mls @ 100 mls/hr IVPB Q8 [facility] PRN Reason: Protocol Last Admin: 11/08/17 05:58 Dose: 100 mls/hr Losartan Potassium (Cozaar) 100 mg PO DAILY [facility] Last Admin: 11/07/17 09:48 Dose: 100 mg Morphine Sulfate (Morphine) 1 mg IVP Q6 PRN PRN Reason: Pain, severe (8-10) Pantoprazole Sodium (Protonix Ec Tab) 40 mg PO DAILY [facility] Last Admin: 11/07/17 11:09 Dose: 40 mg Phenazopyridine HCl (Pyridium) 100 mg PO TIDPC [facility] Last Admin: 11/07/17 17:34 Dose: 100 mg Saccharomyces Boulardii (Florastor) 250 mg PO Q12 [facility] Last Admin: 11/07/17 21:35 Dose: 250 mg - Labs Labs: 11/07/17 07:20 11/07/17 07:20 - Additional Findings Additional findings: - Constitutional Appears: No Acute Distress - Head Exam Head Exam: NORMAL INSPECTION, NORMOCEPHALIC - Eye Exam Eye Exam: EOMI, Normal appearance, PERRL. absent: Nystagmus Pupil Exam: NORMAL ACCOMODATION - ENT Exam ENT Exam: Mucous Membranes Moist, Normal Exam - Respiratory Exam Respiratory Exam: Clear to Auscultation Bilateral, NORMAL BREATHING PATTERN. absent: Decreased Breath Sounds, Wheezes - Cardiovascular Exam Cardiovascular Exam: REGULAR RHYTHM, RRR, +S1, +S2 - GI/Abdominal Exam GI & Abdominal Exam: Normal Bowel Sounds, Soft, Tenderness (LLQ, RLQ, suprapubic tenderness ). absent: Distended, Organomegaly - Rectal Exam Rectal Exam: Deferred - Extremities Exam Extremities exam: Positive for: normal inspection, pedal pulses present. Negative for: pedal edema, tenderness - Back Exam Back exam: CVA tenderness (L), CVA tenderness (R), NORMAL INSPECTION. absent: muscle spasm - Neurological Exam Neurological exam: Alert, Oriented x3 - Psychiatric Exam Psychiatric exam: Normal Affect, Normal Mood - Skin Skin Exam: Dry, Intact, Normal Color, Warm Assessment and Plan - Assessment and Plan (Free Text) Assessment: This is a 37 year old female with PMHx HTN, Nephrolithiasis, and s/p Left renal exploration with left upper pole partial nephrectomy with ureterectomy c/o right flank pain. Found to have ESBL + UC on 10/21/17. Plan: ESBL UTI Pyelonephritis - ID Consulted - Dr. Weeks - help appreciated - Multiple UTIs in the past with ESBL in urine and wounds - Possible colonization - CT Abdomen, Pelvis - Re- demonstrated are significant atrophic changes of the right kidney with multiple scattered calcifications. Compensatory enlargement right kidney which also contains multiple small calcifications as well as small cyst. Probable hyperdense cyst lower pole right kidney however chronic scarring changes may contribute . Prominent right renal pelvis the with on what appears represent mild columnization of the proximal right ureter. No obvious ureteral calculi. Probable hyperdense cyst lower pole right kidney. . . Urologic consultation recommended if not already performed. No evidence of right-sided hydronephrosis or ureteral calculi seen. . Mild bladder wall thickening in part due to incomplete distention however correlation with urinalysis recommended. In situ Copper-T IUD. 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 Lala - help appreciated - Urology consulted - Dr. Ivon Reyna - Renal and bladder US - renal hyperdense cyst - will need repeat ultrasound in 3-6 months Hx HTN - Restarted Cozaar 100mg PO daily Prophylaxis - GI: protonix - DVT: SCDs, lovenox Disposition: WILL CONTINUE WITH MEROPENEM Q8H until 11/12/17 - WILL BE DISCHARGED - NO NEED FOR PICC LINE - will complete course during hospital stay. Ninfa Santoyo Dr., Dr., DO, PGY-1 <Alisa Hayes V - Last Filed: 11/10/17 10:05> Objective - Vital Signs/Intake and Output Vital Signs (last 24 hours): Temp Pulse Resp BP Pulse Ox 98.2 F 76 20 112/74 98 11/09/17 23:45 11/09/17 23:45 11/09/17 23:45 11/09/17 23:45 11/09/17 23:45 Intake and Output: 11/10/17 11/10/17 06:59 18:59 Intake Total 400 Balance 400 - Medications Medications: Current Medications Acetaminophen (Tylenol 325mg Tab) 650 mg PO Q6 PRN PRN Reason: Fever >100.4 F Last Admin: 11/07/17 11:15 Dose: 650 mg Al Hydrox/Mg Hydrox/Simethicone (Maalox 30 Ml) 30 ml PO TID PRN PRN Reason: Indigestion / Heartburn Benzocaine/Menthol (Cepacol Sore Throat) 1 andie MT QID [facility] Last Admin: 11/09/17 21:16 Dose: 1 andie Enoxaparin Sodium (Lovenox) 40 mg SC DAILY [facility] Last Admin: 11/09/17 10:12 Dose: 40 mg Meropenem 1 gm/ Sodium (Chloride) 100 mls @ 100 mls/hr IVPB Q8 [facility] PRN Reason: Protocol Last Admin: 11/10/17 05:25 Dose: 100 mls/hr Sodium Chloride (Sodium Chloride 0.9%) 1,000 mls @ 75 mls/hr IV .[id number] [facility] Last Admin: 11/09/17 22:10 Dose: Not Given Losartan Potassium (Cozaar) 100 mg PO DAILY [facility] Last Admin: 11/09/17 10:11 Dose: 100 mg Morphine Sulfate (Morphine) 1 mg IVP Q6 PRN PRN Reason: Pain, severe (8-10) Last Admin: 11/09/17 14:27 Dose: 1 mg Pantoprazole Sodium (Protonix Ec Tab) 40 mg PO DAILY [facility] Last Admin: 11/09/17 10:10 Dose: 40 mg Phenazopyridine HCl (Pyridium) 100 mg PO TIDPC [facility] Last Admin: 11/09/17 17:20 Dose: 100 mg Saccharomyces Boulardii (Florastor) 250 mg PO Q12 [facility] Last Admin: 11/09/17 21:21 Dose: 250 mg Simethicone (Mylicon Liq) 40 mg PO QID [facility] Last Admin: 11/09/17 22:11 Dose: 40 mg - Labs Labs: 11/10/17 07:47 11/10/17 07:47 Attending/Attestation - Attestation I have personally seen and examined this patient.: Yes I have fully participated in the care of the patient.: Yes I have reviewed all pertinent clinical information, including history, physical exam and plan: Yes Notes (Text): This is late computer entry for 11/08/17. Patient seen, examined and case discussed with day-time resident. Patient reports urinary symptoms are improving. Patient was seen and evaluated by urology recommending for renal nuclear and abdominal xray in light of patient's left atrophic kidney. Patient to continue IV abx until 11/11/17 to complete 7 days. Assessment/Plan 1) ESBL+ Pyleonephritis-->current * On contact isolation * Refractory to PO antibiotics * Urine culture (10/21/17): +ESBL * Urine culture (11/04/17): No growth * ID Consulted - Dr. Weeks - help appreciated * f/u blood cultures, repeat urine culture * Patient has history of multiple UTIs in the past with ESBL in urine and prior can carrier wounds * CT Abdomen, Pelvis w/p PO or IV contrast (11/04/17) - Re- demonstrated are significant atrophic changes of the right kidney with multiple scattered calcifications. Compensatory enlargement right kidney which also contains multiple small calcifications as well as small cyst. Probable hyperdense cyst lower pole right kidney however chronic scarring changes may contribute . Prominent right renal pelvis the with on what appears represent mild columnization of the proximal right ureter. No obvious ureteral calculi. Probable hyperdense cyst lower pole right kidney. Urologic consultation recommended if not already performed. No evidence of right-sided hydronephrosis or ureteral calculi seen. Mild bladder wall thickening in part due to incomplete distention however correlation with urinalysis recommended. In situ Copper-T IUD. * Nephrology (Dr. lala) on board-->help appreciated * Urology (Dr. 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 Lala - help appreciated * Urology consulted - Dr. Ivon Reyna * Recommended Antibiotic Rx, Renal scan, differential renoggram, abdominal xray * Abdominal Xray (11/08/17): 2.5mm likely intrarenal calculus reiterated but lower in the right kidney than previously shown. No interval new radiodense urolithiasis in the abdomen. Pelvic IUD again evident. Nonobstructive bowel gas. * Renal Nuclear scan (11/08/17): poorly functioning left kidney consistent with the atrophic left kidney seen on recent CT. Unremarkable profusion and function right kidney * Renal and bladder US (11/05/17) : bilateral nonsobtructing renal calculi, mild right pleviectasis, right renal cyst, atrophic left kidney 3) Renal Cyst-->chronic * Renal and bladder US (11/05/17) : bilateral nonsobtructing renal calculi, mild right pleviectasis, right renal cyst, atrophic left kidney * Will need repeat Renal US to monitor in 3-6 months 4) History of Hypertension-->chronic * Restarted Cozaar 100mg PO daily 5) Chest Pain-->Resolved * Chest xray (11/07/17): no focal infiltrate or effusion * EKG: NSR Troponin: negative * Suspecting secondary to gerd. Patient reports burning sensation over the chest. * Start Maalox 30ml PO TID PRN indigestion/heartburn * Simethicone 40mg PO qid 6) Prophylaxis * GI PPx: protonix 40mg PO daily * DVT PPx: SCDs, lovenox 40mg subqdaily * NS 75cc/hr Disposition: Will continue with Meropenem until 11/11/17 to complete at least 7 days of IV abx. No PICC line at this time.
[2017-11-08 06:56] LABS: BASO # 0.1 K/uL (0.0-0.2); BASO % 0.8 % (0.0-2.0); EOS # 0.4 K/uL (0.0-0.7); HEMOGLOBIN 12.7 g/dL (11.0-16.0); LYMPH # 2.8 K/uL (1.0-4.3); LYMPH % 28.4 % (20.0-40.0); MEAN CELL VOLUME 90.6 fL (81.0-99.0); MEAN CORPUSCULAR HEMOGLOBIN 32.2 pg (27.0-31.0); MEAN CORPUSCULAR HGB CONC 35.6 g/dL (33.0-37.0); MEAN PLATELET VOLUME 8.3 fL (7.2-11.7); MONO # 0.5 K/uL (0.0-0.8); MONO % 5.1 % (0.0-10.0); NEUT % 61.7 % (50.0-75.0); RBC 3.95 Mil/uL (3.80-5.20); RED CELL DISTRIBUTION WIDTH 13.2 % (11.5-14.5); WHITE BLOOD COUNT 9.7 K/uL (4.8-10.8)
[2017-11-08 06:58] LABS: ALB/GLOB RATIO 1.2 (1.0-2.1); ALT/SGPT 55 U/L (9-52); AST/SGOT 41 U/L (14-36); BLOOD UREA NITROGEN 16 mg/dL (7-17); GFR AFRICAN-AMERICAN > 60; GFR NON-AFRICAN AMERICAN > 60
[2017-11-08] MEDS: Pantoprazole 40 mg EC Tab PO SCH (10:11)
[2017-11-08] MEDS: Enoxaparin 40 mg Syringe SC SCH (10:11)
[2017-11-08] MEDS: Saccharomyces Boulardi 250 mg Cap PO SCH ×2 (10:11→21:53)
[2017-11-08] MEDS: Benzocaine/Menthol (Cepacol) Lozenge MT SCH ×4 (10:12→21:53)
--- NOTE | 2017-11-08 11:24 | CP.PCM.CON ---
Past Patient History - Infectious Disease Hx of Infectious Diseases: None - Past Medical History & Family History Past Medical History?: Yes - Past Social History Smoking Status: Never Smoked - CARDIAC Hx Hypertension: Yes - PULMONARY Hx Respiratory Disorders: No - NEUROLOGICAL Hx Neurological Disorder: No - HEENT Hx HEENT Problems: No - RENAL Hx Chronic Kidney Disease: Yes Hx Kidney Stones: Yes - ENDOCRINE/METABOLIC Hx Endocrine Disorders: No - INTEGUMENTARY Hx Dermatological Problems: No - MUSCULOSKELETAL/RHEUMATOLOGICAL Hx Falls: No - GASTROINTESTINAL Hx Gall Bladder Disease: Yes - GENITOURINARY/GYNECOLOGICAL Hx Genitourinary Disorders: Yes (SEE COMMENT) Other/Comment: ''PELVIC TUMOR REMOVED IN 2014''; LEFT KIDNEY STONES REMOVE WITH ROBOTICS; Hx of C -section x3. Hx of cholecystectomy, appendectomy. H/O KIDNEY STONES - PSYCHIATRIC Hx Substance Use: No - SURGICAL HISTORY Hx Appendectomy: Yes Hx Cholecystectomy: Yes - ANESTHESIA Hx Anesthesia: Yes Hx Anesthesia Reactions: No Hx Malignant Hyperthermia: No Meds Allergies/Adverse Reactions: Allergies Allergy/AdvReac Type Severity Reaction Status Date / Time No Known Allergies Allergy Verified 11/04/17 10:43 - Medications Medications: Current Medications Acetaminophen (Tylenol 325mg Tab) 650 mg PO Q6 PRN PRN Reason: Fever >100.4 F Last Admin: 11/07/17 11:15 Dose: 650 mg Al Hydrox/Mg Hydrox/Simethicone (Maalox 30 Ml) 30 ml PO TID PRN PRN Reason: Indigestion / Heartburn Benzocaine/Menthol (Cepacol Sore Throat) 1 andie MT QID [facility] Last Admin: 11/08/17 10:12 Dose: 1 andie Enoxaparin Sodium (Lovenox) 40 mg SC DAILY [facility] Last Admin: 11/08/17 10:11 Dose: 40 mg Meropenem 1 gm/ Sodium (Chloride) 100 mls @ 100 mls/hr IVPB Q8 [facility] PRN Reason: Protocol Last Admin: 11/08/17 05:58 Dose: 100 mls/hr Losartan Potassium (Cozaar) 100 mg PO DAILY [facility] Last Admin: 11/08/17 10:11 Dose: 100 mg Morphine Sulfate (Morphine) 1 mg IVP Q6 PRN PRN Reason: Pain, severe (8-10) Pantoprazole Sodium (Protonix Ec Tab) 40 mg PO DAILY [facility] Last Admin: 11/08/17 10:11 Dose: 40 mg Phenazopyridine HCl (Pyridium) 100 mg PO TIDPC [facility] Last Admin: 11/08/17 09:30 Dose: 100 mg Saccharomyces Boulardii (Florastor) 250 mg PO Q12 [facility] Last Admin: 11/08/17 10:11 Dose: 250 mg Results - Vital Signs Recent Vital Signs: Last Vital Signs Temp 97.7 F 11/08/17 00:00 Pulse 77 11/08/17 00:00 Resp 20 11/08/17 00:00 BP 108/62 11/08/17 00:00 Pulse Ox 97 11/08/17 00:00 - Labs Result Diagrams: 11/08/17 06:29 11/08/17 06:29 Labs: Laboratory Results - last 24 hr 11/08/17 11/08/17 06:29 06:29 WBC 9.7 RBC 3.95 Hgb 12.7 Hct 35.8 MCV 90.6 MCH 32.2 H MCHC 35.6 RDW 13.2 Plt Count 291 MPV 8.3 Neut % (Auto) 61.7 Lymph % (Auto) 28.4 Marshall % (Auto) 5.1 Eos % (Auto) 4.0 Baso % (Auto) 0.8 Neut # (Auto) 6.0 Lymph # (Auto) 2.8 Marshall # (Auto) 0.5 Eos # (Auto) 0.4 Baso # (Auto) 0.1 Sodium 138 Potassium 4.4 Chloride 102 Carbon Dioxide 25 Anion Gap 15 BUN 16 Creatinine 0.9 Est GFR ( Amer) > 60 Est GFR (Non-Af Amer) > 60 Random Glucose 111 H Calcium 9.0 Phosphorus 3.3 Magnesium 1.7 Total Bilirubin 0.6 AST 41 H D ALT 55 H D Alkaline Phosphatase 93 Total Protein 7.3 Albumin 4.0 Globulin 3.3 Albumin/Globulin Ratio 1.2 Assessment & Plan - Assessment and Plan (Free Text) Assessment: IMP: UTI Urolithiasis Hx of L partial nephrectomy, for hydronephrotic renal segment, with duplicated collecting system and stones Rec/p: Antibiotic RX Reanl scan, differential renogram Abd xray YS - Date & Time Date: 11/08/17 Time: 11:05
--- NOTE | 2017-11-08 14:22 | CP.PCM.PN ---
Subjective - Date & Time of Evaluation Date of Evaluation: 11/01/17 Time of Evaluation: 14:19 - Subjective Subjective: seen at nuclear medicine scan c/w atrophic left kidney- await full results afebrile seen by - CT kidneys with IV contrast recommended for evaluation hyperdense cyst remains on IV ABs for UTI Objective - Vital Signs/Intake and Output Vital Signs (last 24 hours): Temp Pulse Resp BP Pulse Ox 97.7 F 77 20 108/62 97 11/08/17 00:00 11/08/17 00:00 11/08/17 00:00 11/08/17 00:00 11/08/17 00:00 Intake and Output: 11/08/17 11/08/17 06:59 18:59 Intake Total 350 Balance 350 - Medications Medications: Current Medications Acetaminophen (Tylenol 325mg Tab) 650 mg PO Q6 PRN PRN Reason: Fever >100.4 F Last Admin: 11/07/17 11:15 Dose: 650 mg Al Hydrox/Mg Hydrox/Simethicone (Maalox 30 Ml) 30 ml PO TID PRN PRN Reason: Indigestion / Heartburn Benzocaine/Menthol (Cepacol Sore Throat) 1 andie MT QID [facility] Last Admin: 11/08/17 13:28 Dose: Not Given Enoxaparin Sodium (Lovenox) 40 mg SC DAILY [facility] Last Admin: 11/08/17 10:11 Dose: 40 mg Meropenem 1 gm/ Sodium (Chloride) 100 mls @ 100 mls/hr IVPB Q8 [facility] PRN Reason: Protocol Last Admin: 11/08/17 13:39 Dose: 100 mls/hr Losartan Potassium (Cozaar) 100 mg PO DAILY [facility] Last Admin: 11/08/17 10:11 Dose: 100 mg Morphine Sulfate (Morphine) 1 mg IVP Q6 PRN PRN Reason: Pain, severe (8-10) Pantoprazole Sodium (Protonix Ec Tab) 40 mg PO DAILY [facility] Last Admin: 11/08/17 10:11 Dose: 40 mg Phenazopyridine HCl (Pyridium) 100 mg PO TIDPC [facility] Last Admin: 11/08/17 13:29 Dose: 100 mg Saccharomyces Boulardii (Florastor) 250 mg PO Q12 [facility] Last Admin: 11/08/17 10:11 Dose: 250 mg - Labs Labs: 11/08/17 06:29 11/08/17 06:29 - Constitutional Appears: Non-toxic, No Acute Distress - Eye Exam Eye Exam: EOMI, Normal appearance - Neck Exam Neck Exam: Normal Inspection. absent: Tenderness - Respiratory Exam Respiratory Exam: Clear to Ausculation Bilateral, NORMAL BREATHING PATTERN - Cardiovascular Exam Cardiovascular Exam: REGULAR RHYTHM, +S1 - GI/Abdominal Exam GI & Abdominal Exam: Soft. absent: Tenderness - Extremities Exam Extremities Exam: Normal Inspection. absent: Tenderness - Neurological Exam Neurological Exam: Awake, CN II-XII Intact - Skin Skin Exam: Dry, Warm Assessment and Plan (1) Atrophy of left kidney Status: Acute (2) Urinary tract infection due to ESBL Klebsiella Status: Acute (3) Chronic hypertension Status: Acute (4) Renal cyst Status: Acute - Assessment and Plan (Free Text) Plan: IV ABs CT scan with IV contrast
--- NOTE | 2017-11-08 15:22 | RAD ---
HISTORY: urolithiasis COMPARISON: Abdomen radiographs 09/02/2017. FINDINGS: BOWEL: A prior 3.5 mm calculus appears to have migrated from the upper to mid right kidney to the mid to lower right kidney with no added radiodense urolithiasis appreciable bilaterally. No suspicious calcifications are seen in the pelvis in general. Intrauterine device is reiterated in the pelvis. Nonobstructive bowel gas pattern. No prominent free intraperitoneal gas. BONES: Normal. OTHER FINDINGS: None. IMPRESSION: 2.5 mm likely intrarenal calculus reiterated but lower in the right kidney than previously shown. No interval new radiodense urolithiasis in the abdomen. Pelvic IUD again evident. Nonobstructive bowel gas pattern.
--- NOTE | 2017-11-08 16:14 | NM ---
PROCEDURE: AllAll renal scan, flow study Capture garcia tech he PE B all all all move HISTORY: Differential renogram. Hx of L partial nephrectomy COMPARISON: 11/04/2017 CT abdomen and pelvis TECHNIQUE: Twin a mCi technetium 99 M DTPA administered intravenously. FINDINGS: Right Kidney: Flow component: Normal flow to the right kidney Time to peak: 2.5 minutes Peak to T1/2 Peak: 11 minutes Left Kidney: Flow component: Mildly diminished perfusion to the left kidney compared to the right Time to peak: 1.5 minutes Peak to T1/2 Peak: 27 minutes Split Renal Function: Right kidney 93.0 % Left kidney 7.0 % IMPRESSION: Poorly functioning left kidney consistent with the atrophic left kidney seen on recent CT scan. Unremarkable profusion and function right kidney.
--- NOTE | 2017-11-09 03:10 | CARD ---
APPROVED REPORT EKG Measurement Heart [id number] <Conclusion> Normal sinus rhythm with sinus arrhythmia Left axis deviation Minimal voltage criteria for LVH, may be normal variant Abnormal ECG
[2017-11-09] MEDS: Meropenem 1 GM in Sodium Chloride 0.9% 100 ML IVPB SCH ×3 (05:37→21:20)
--- NOTE | 2017-11-09 05:54 | CP.PCM.PN ---
<Amna Sena - Last Filed: 11/09/17 05:51> Subjective - Date & Time of Evaluation Date of Evaluation: 11/09/17 Time of Evaluation: 05:51 - Subjective Subjective: Medicine progress note for Dr. Hayes's service Patient was seen and examined at bedside in no acute distress. Patient was sleeping comfortably in bed. Patient has no complaints and feels well. Patient denies dysuria, hematuria, fevers, headaches, nausea, vomiting, chest pain, dyspnea, abdominal pain. Objective - Vital Signs/Intake and Output Vital Signs (last 24 hours): Temp Pulse Resp BP Pulse Ox 97.4 F L 64 18 111/76 99 11/09/17 00:04 11/09/17 00:04 11/09/17 00:04 11/09/17 00:04 11/09/17 00:04 Intake and Output: 11/08/17 11/09/17 18:59 06:59 Intake Total 400 400 Balance 400 400 - Medications Medications: Current Medications Acetaminophen (Tylenol 325mg Tab) 650 mg PO Q6 PRN PRN Reason: Fever >100.4 F Last Admin: 11/07/17 11:15 Dose: 650 mg Al Hydrox/Mg Hydrox/Simethicone (Maalox 30 Ml) 30 ml PO TID PRN PRN Reason: Indigestion / Heartburn Benzocaine/Menthol (Cepacol Sore Throat) 1 andie MT QID [facility] Last Admin: 11/08/17 21:53 Dose: 1 andie Enoxaparin Sodium (Lovenox) 40 mg SC DAILY [facility] Last Admin: 11/08/17 10:11 Dose: 40 mg Meropenem 1 gm/ Sodium (Chloride) 100 mls @ 100 mls/hr IVPB Q8 [facility] PRN Reason: Protocol Last Admin: 11/09/17 05:37 Dose: 100 mls/hr Losartan Potassium (Cozaar) 100 mg PO DAILY [facility] Last Admin: 11/08/17 10:11 Dose: 100 mg Morphine Sulfate (Morphine) 1 mg IVP Q6 PRN PRN Reason: Pain, severe (8-10) Pantoprazole Sodium (Protonix Ec Tab) 40 mg PO DAILY [facility] Last Admin: 11/08/17 10:11 Dose: 40 mg Phenazopyridine HCl (Pyridium) 100 mg PO TIDPC [facility] Last Admin: 11/08/17 18:41 Dose: 100 mg Saccharomyces Borachiddii (Florastor) 250 mg PO Q12 [facility] Last Admin: 11/08/17 21:53 Dose: 250 mg - Labs Labs: 11/08/17 06:29 11/08/17 06:29 - Constitutional Appears: No Acute Distress - Head Exam Head Exam: ATRAUMATIC, NORMAL INSPECTION - Eye Exam Eye Exam: EOMI, Normal appearance - ENT Exam ENT Exam: Mucous Membranes Moist - Respiratory Exam Respiratory Exam: Clear to Ausculation Bilateral, NORMAL BREATHING PATTERN. absent: Rales, Rhonchi, Wheezes, Respiratory Distress - Cardiovascular Exam Cardiovascular Exam: REGULAR RHYTHM, +S1, +S2 - GI/Abdominal Exam GI & Abdominal Exam: Soft, Normal Bowel Sounds. absent: Distended, Firm, Tenderness - Extremities Exam Extremities Exam: Normal Inspection. absent: Pedal Edema, Tenderness - Neurological Exam Neurological Exam: Alert, Awake - Psychiatric Exam Psychiatric exam: Normal Affect, Normal Mood - Skin Skin Exam: Dry, Intact, Normal Color, Warm Assessment and Plan - Assessment and Plan (Free Text) Plan: This is a 37 year old female with PMHx HTN, Nephrolithiasis, and s/p Left renal exploration with left upper pole partial nephrectomy with ureterectomy c/o right flank pain. Found to have ESBL + UC on 10/21/17. Plan: ESBL UTI Pyelonephritis - ID Consulted - Dr. Weeks - help appreciated - Multiple UTIs in the past with ESBL in urine and wounds - Possible colonization - CT Abdomen, Pelvis - Re- demonstrated are significant atrophic changes of the right kidney with multiple scattered calcifications. Compensatory enlargement right kidney which also contains multiple small calcifications as well as small cyst. Probable hyperdense cyst lower pole right kidney however chronic scarring changes may contribute . Prominent right renal pelvis the with on what appears represent mild columnization of the proximal right ureter. No obvious ureteral calculi. Probable hyperdense cyst lower pole right kidney. . . Urologic consultation recommended if not already performed. No evidence of right-sided hydronephrosis or ureteral calculi seen. . Mild bladder wall thickening in part due to incomplete distention however correlation with urinalysis recommended. In situ Copper-T IUD. 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 Lala - help appreciated - Urology consulted - Dr. Ivon Reyna - Renal and bladder US - renal hyperdense cyst - will need repeat ultrasound in 3-6 months - Renal differential study to access renal function of left kidney- poorly functioning left kidney consistent with the atrophic left kidney seen on recent CT; unremarkable profusion and function of right kidney. Right Renal Cyst: - CT abdomen and pelvis with/ without IV contrast: f/u Hx of nephrolithiasis - Abdominal xray: 2.5mm likely intrarenal calculus lower in the right kidney. Hx HTN - Restarted Cozaar 100mg PO daily Prophylaxis - GI: protonix - DVT: SCDs, lovenox Disposition: WILL CONTINUE WITH MEROPENEM Q8H until 11/12/17 - WILL BE DISCHARGED - NO NEED FOR PICC LINE - will complete course during hospital stay. <Alisa Hayes V - Last Filed: 11/10/17 10:09> Objective - Vital Signs/Intake and Output Vital Signs (last 24 hours): Temp Pulse Resp BP Pulse Ox 98.2 F 76 20 112/74 98 11/09/17 23:45 11/09/17 23:45 11/09/17 23:45 11/09/17 23:45 11/09/17 23:45 Intake and Output: 11/10/17 11/10/17 06:59 18:59 Intake Total 400 Balance 400 - Medications Medications: Current Medications Acetaminophen (Tylenol 325mg Tab) 650 mg PO Q6 PRN PRN Reason: Fever >100.4 F Last Admin: 11/07/17 11:15 Dose: 650 mg Al Hydrox/Mg Hydrox/Simethicone (Maalox 30 Ml) 30 ml PO TID PRN PRN Reason: Indigestion / Heartburn Benzocaine/Menthol (Cepacol Sore Throat) 1 andie MT QID [facility] Last Admin: 11/10/17 10:01 Dose: 1 andie Enoxaparin Sodium (Lovenox) 40 mg SC DAILY [facility] Last Admin: 11/10/17 09:58 Dose: 40 mg Meropenem 1 gm/ Sodium (Chloride) 100 mls @ 100 mls/hr IVPB Q8 [facility] PRN Reason: Protocol Last Admin: 11/10/17 05:25 Dose: 100 mls/hr Sodium Chloride (Sodium Chloride 0.9%) 1,000 mls @ 75 mls/hr IV .[id number] [facility] Last Admin: 11/09/17 22:10 Dose: Not Given Losartan Potassium (Cozaar) 100 mg PO DAILY [facility] Last Admin: 11/10/17 09:57 Dose: 100 mg Morphine Sulfate (Morphine) 1 mg IVP Q6 PRN PRN Reason: Pain, severe (8-10) Last Admin: 11/09/17 14:27 Dose: 1 mg Pantoprazole Sodium (Protonix Ec Tab) 40 mg PO DAILY [facility] Last Admin: 11/10/17 09:57 Dose: 40 mg Phenazopyridine HCl (Pyridium) 100 mg PO TIDPC [facility] Last Admin: 11/10/17 09:59 Dose: 100 mg Saccharomyces Boulardii (Florastor) 250 mg PO Q12 [facility] Last Admin: 11/10/17 09:57 Dose: 250 mg Simethicone (Mylicon Liq) 40 mg PO QID [facility] Last Admin: 11/09/17 22:11 Dose: 40 mg - Labs Labs: 11/10/17 07:47 11/10/17 07:47 Attending/Attestation - Attestation I have personally seen and examined this patient.: Yes I have fully participated in the care of the patient.: Yes I have reviewed all pertinent clinical information, including history, physical exam and plan: Yes Notes (Text): This is late computer entry for 11/09/17. Patient seen, examined and case discussed with day-time resident. Patient reports she feeling better. She has mild left lower quadrant pain. Denies other complaints. Patient underwent CT abdomen/pelvis with PO and IV contrast as requested by urology. Assessment/Plan 1) ESBL+ Pyleonephritis-->current * On contact isolation * Refractory to PO antibiotics * Urine culture (10/21/17): +ESBL * Urine culture (11/04/17): No growth * ID Consulted - Dr. 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 Compensatory enlargement right kidney which also contains multiple small calcifications as well as small cyst. Probable hyperdense cyst lower pole right kidney however chronic scarring changes may contribute . Prominent right renal pelvis the with on what appears represent mild columnization of the proximal right ureter. No obvious ureteral calculi. Probable hyperdense cyst lower pole right kidney. Urologic consultation recommended if not already performed. No evidence of right-sided hydronephrosis or ureteral calculi seen. Mild bladder wall thickening in part due to incomplete distention however correlation with urinalysis recommended. In situ Copper-T IUD. * Nephrology (Dr. lala) on board-->help appreciated * Urology (Dr. 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 Lala - help appreciated * Urology consulted - Dr. Ivon Reyna * Recommended Antibiotic Rx, Renal scan, differential renoggram, abdominal xray * Abdominal Xray (11/08/17): 2.5mm likely intrarenal calculus reiterated but lower in the right kidney than previously shown. No interval new radiodense urolithiasis in the abdomen. Pelvic IUD again evident. Nonobstructive bowel gas. * Renal Nuclear scan (11/08/17): poorly functioning left kidney consistent with the atrophic left kidney seen on recent CT. Unremarkable profusion and function right kidney * CT abdomen/pelvis PO and IV contrast (11/09/17): 1.2 cm likely soft tissue lesion at the lower pole right kidney is indeterminate in evaluation. Follow-up urology recommended. No significant lymphadenopahty includring retroperitoneum. Markedly atrophic left kidney. Intrauterine device in situ. * Patient will need to follow-up with urology with copies of completed imaging during hospitalization given status of left kidney. * Renal and bladder US (11/05/17) : bilateral nonsobtructing renal calculi, mild right pleviectasis, right renal cyst, atrophic left kidney 3) Renal Cyst-->chronic * Renal and bladder US (11/05/17) : bilateral nonsobtructing renal calculi, mild right pleviectasis, right renal cyst, atrophic left kidney * Will need repeat Renal US to monitor in 3-6 months 4) History of Hypertension-->chronic * Restarted Cozaar 100mg PO daily 5) Chest Pain-->Resolved * Chest xray (11/07/17): no focal infiltrate or effusion * EKG: NSR Troponin: negative * Suspecting secondary to gerd. Patient reports burning sensation over the chest. * Start Maalox 30ml PO TID PRN indigestion/heartburn * Simethicone 40mg PO qid 6) Prophylaxis * GI PPx: protonix 40mg PO daily * DVT PPx: SCDs, lovenox 40mg subqdaily * NS 75cc/hr Disposition: Will continue with Meropenem until 11/11/17 to complete at least 7 days of IV abx. No PICC line at this time
--- NOTE | 2017-11-09 09:18 | CP.PCM.PN ---
Subjective - Date & Time of Evaluation Date of Evaluation: 11/09/17 Time of Evaluation: 09:15 - Subjective Subjective: pt seen and examined walking in the room afebrile no pain no dysuria RSO- asper HPI, other than that 10 point ROS negative Objective - Vital Signs/Intake and Output Vital Signs (last 24 hours): Temp Pulse Resp BP Pulse Ox 97.4 F L 64 18 111/76 99 11/09/17 00:04 11/09/17 00:04 11/09/17 00:04 11/09/17 00:04 11/09/17 00:04 Intake and Output: 11/09/17 11/09/17 06:59 18:59 Intake Total 400 340 Balance 400 340 - Medications Medications: Current Medications Acetaminophen (Tylenol 325mg Tab) 650 mg PO Q6 PRN PRN Reason: Fever >100.4 F Last Admin: 11/07/17 11:15 Dose: 650 mg Al Hydrox/Mg Hydrox/Simethicone (Maalox 30 Ml) 30 ml PO TID PRN PRN Reason: Indigestion / Heartburn Benzocaine/Menthol (Cepacol Sore Throat) 1 andie MT QID [facility] Last Admin: 11/08/17 21:53 Dose: 1 andie Enoxaparin Sodium (Lovenox) 40 mg SC DAILY [facility] Last Admin: 11/08/17 10:11 Dose: 40 mg Meropenem 1 gm/ Sodium (Chloride) 100 mls @ 100 mls/hr IVPB Q8 [facility] PRN Reason: Protocol Last Admin: 11/09/17 05:37 Dose: 100 mls/hr Sodium Chloride (Sodium Chloride 0.9%) 1,000 mls @ 75 mls/hr IV .[id number] [facility] Losartan Potassium (Cozaar) 100 mg PO DAILY [facility] Last Admin: 11/08/17 10:11 Dose: 100 mg Morphine Sulfate (Morphine) 1 mg IVP Q6 PRN PRN Reason: Pain, severe (8-10) Pantoprazole Sodium (Protonix Ec Tab) 40 mg PO DAILY [facility] Last Admin: 11/08/17 10:11 Dose: 40 mg Phenazopyridine HCl (Pyridium) 100 mg PO TIDPC [facility] Last Admin: 11/08/17 18:41 Dose: 100 mg Saccharomyces Boulardii (Florastor) 250 mg PO Q12 [facility] Last Admin: 11/08/17 21:53 Dose: 250 mg - Labs Labs: 11/08/17 06:29 11/08/17 06:29 - Constitutional Appears: Well, Non-toxic - Head Exam Head Exam: ATRAUMATIC, NORMOCEPHALIC - Eye Exam Eye Exam: EOMI, PERRL - Neck Exam Neck Exam: Full ROM. absent: Lymphadenopathy - Respiratory Exam Respiratory Exam: Clear to Ausculation Bilateral. absent: Rhonchi, Wheezes - Cardiovascular Exam Cardiovascular Exam: REGULAR RHYTHM, +S1, +S2 - GI/Abdominal Exam GI & Abdominal Exam: Soft. absent: Tenderness - Extremities Exam Extremities Exam: Full ROM. absent: Pedal Edema - Back Exam Back Exam: absent: CVA tenderness (L), CVA tenderness (R) - Neurological Exam Neurological Exam: Alert, Awake, Oriented x3 - Psychiatric Exam Psychiatric exam: Normal Affect, Normal Mood - Skin Skin Exam: Normal Color, Warm Assessment and Plan (1) Atrophy of left kidney Status: Acute (2) Urinary tract infection due to ESBL Klebsiella Status: Acute (3) Chronic hypertension Status: Acute (4) Renal cyst Status: Acute - Assessment and Plan (Free Text) Plan: cr stable hold diovan for CT scan with IV contrast gentle hydration prior to CT scan daily chemistry
[2017-11-09] MEDS: Pantoprazole 40 mg EC Tab PO SCH (10:10)
[2017-11-09] MEDS: Saccharomyces Boulardi 250 mg Cap PO SCH ×2 (10:11→21:21)
[2017-11-09] MEDS: Enoxaparin 40 mg Syringe SC SCH (10:12)
[2017-11-09] MEDS: Benzocaine/Menthol (Cepacol) Lozenge MT SCH ×4 (10:13→21:16)
[2017-11-09] MEDS: Sodium Chloride 0.9% 1,000 ML IV SCH ×2 (10:14→22:10)
[2017-11-09] MEDS ORDERED: Iodixanol 320 MG/ML 100 ML BOTTLE IV ONE (10:34)
--- NOTE | 2017-11-09 15:06 | CT ---
PROCEDURE: CT Abdomen and Pelvis with and without intravenous contrast HISTORY: access right renal mass COMPARISON: Abdomen pelvis CT without contrast 11/04/2017. TECHNIQUE: Axial images of the abdomen were obtained in the pre contrast, portal venous and delayed phases of enhancement. Coronal and sagittal reformats were generated. Contrast dose: Visipaque 320, 100 cc Radiation dose: Total exam DLP = 1346.96 mGy-cm. This CT exam was performed using one or more of the following dose reduction techniques: Automated exposure control, adjustment of the mA and/or kV according to patient size, and/or use of iterative reconstruction technique. FINDINGS: LOWER THORAX: Unremarkable. LIVER: Unremarkable. No gross lesion or ductal dilatation. GALLBLADDER AND BILE DUCTS: Unremarkable. PANCREAS: Unremarkable. No gross lesion or ductal dilatation. SPLEEN: Unremarkable. ADRENALS: Unremarkable. No mass. KIDNEYS AND URETERS: Grossly atrophic left kidney reiterated. A small lucent lesion is seen at the lower pole right kidney measuring 1.2 cm greatest dimension and 5 Hounsfield units prior to contrast administration. Arterial phase imaging demonstrates enhancement to 25 Hounsfield units with arteriovenous phase demonstrating diminished enhancement in 19 Hounsfield units. Given 20 Hounsfield units differences between precontrast and postcontrast density, this likely represents a small soft tissue lesion. I am unable to retrieve the prior distant unenhanced CT of the abdomen pelvis from 11/10/2015 due to technical problems. This may represent a benign nodule however urological consultation is advised nevertheless. A tiny lucency measuring only 4 mm too small to characterize at the lower pole right kidney medially lateral to this structure by 2 cm. VASCULATURE: Unremarkable. No aortic aneurysm. BOWEL: Unremarkable. No obstruction. No gross mural thickening. APPENDIX: Normal appendix. PERITONEUM: Unremarkable. No free fluid. No free air. LYMPH NODES: Unremarkable. No enlarged lymph nodes. BLADDER: Unremarkable. REPRODUCTIVE: Intrauterine device identified in situ. BONES: No acute fracture. OTHER FINDINGS: None. IMPRESSION: 1. 1.2 cm likely soft tissue lesion at the lower pole right kidney is indeterminate in evaluation. Follow-up urological consultation is recommended. No significant lymphadenopathy including retroperitoneum. 2. Markedly atrophic left kidney. 3. Intrauterine device in situ.
[2017-11-09] MEDS ORDERED: Bisacodyl 5mg EC Tab PO ONE (20:32)
[2017-11-09] MEDS ORDERED: Simethicone 40 mg/0.6 ml Liquid (30 ml) PO SCH (22:00)
[2017-11-09] MEDS: Simethicone 40 mg/0.6 ml Liquid (30 ml) PO SCH (22:11)
--- NOTE | 2017-11-10 02:56 | CP.PCM.PN ---
<Amna Sena - Last Filed: 11/10/17 02:52> Subjective - Date & Time of Evaluation Date of Evaluation: 11/10/17 Time of Evaluation: 02:52 - Subjective Subjective: Medicine progress note for Dr. Hayes's service Patient was seen and examined at bedside in no acute distress. Patient was sleeping comfortably in bed. Patient states she has intermittent suprapubic pain /burning. Patient denies hematuria, fevers, headaches, nausea, vomiting, chest pain, dyspnea, abdominal pain. No acute events overnight. Objective - Vital Signs/Intake and Output Vital Signs (last 24 hours): Temp Pulse Resp BP Pulse Ox 98.2 F 76 20 112/74 98 11/09/17 23:45 11/09/17 23:45 11/09/17 23:45 11/09/17 23:45 11/09/17 23:45 Intake and Output: 11/09/17 11/10/17 18:59 06:59 Intake Total 1290 Balance 1290 - Medications Medications: Current Medications Acetaminophen (Tylenol 325mg Tab) 650 mg PO Q6 PRN PRN Reason: Fever >100.4 F Last Admin: 11/07/17 11:15 Dose: 650 mg Al Hydrox/Mg Hydrox/Simethicone (Maalox 30 Ml) 30 ml PO TID PRN PRN Reason: Indigestion / Heartburn Benzocaine/Menthol (Cepacol Sore Throat) 1 andie MT QID [facility] Last Admin: 11/09/17 21:16 Dose: 1 andie Enoxaparin Sodium (Lovenox) 40 mg SC DAILY [facility] Last Admin: 11/09/17 10:12 Dose: 40 mg Meropenem 1 gm/ Sodium (Chloride) 100 mls @ 100 mls/hr IVPB Q8 LETY PRN Reason: Protocol Last Admin: 11/09/17 21:20 Dose: 100 mls/hr Sodium Chloride (Sodium Chloride 0.9%) 1,000 mls @ 75 mls/hr IV .[id number] [facility] Last Admin: 11/09/17 22:10 Dose: Not Given Losartan Potassium (Cozaar) 100 mg PO DAILY [facility] Last Admin: 11/09/17 10:11 Dose: 100 mg Morphine Sulfate (Morphine) 1 mg IVP Q6 PRN PRN Reason: Pain, severe (8-10) Last Admin: 11/09/17 14:27 Dose: 1 mg Pantoprazole Sodium (Protonix Ec Tab) 40 mg PO DAILY [facility] Last Admin: 11/09/17 10:10 Dose: 40 mg Phenazopyridine HCl (Pyridium) 100 mg PO TIDPC [facility] Last Admin: 11/09/17 17:20 Dose: 100 mg Saccharomyces Boulardii (Florastor) 250 mg PO Q12 [facility] Last Admin: 11/09/17 21:21 Dose: 250 mg Simethicone (Mylicon Liq) 40 mg PO QID [facility] Last Admin: 11/09/17 22:11 Dose: 40 mg - Labs Labs: 11/08/17 06:29 11/08/17 06:29 - Additional Findings Additional findings: - Constitutional Appears: No Acute Distress - Head Exam Head Exam: ATRAUMATIC, NORMAL INSPECTION - Eye Exam Eye Exam: EOMI, Normal appearance - ENT Exam ENT Exam: Mucous Membranes Moist - Respiratory Exam Respiratory Exam: Clear to Ausculation Bilateral, NORMAL BREATHING PATTERN. absent: Rales, Rhonchi, Wheezes, Respiratory Distress - Cardiovascular Exam Cardiovascular Exam: REGULAR RHYTHM, +S1, +S2 - GI/Abdominal Exam GI & Abdominal Exam: Soft, Normal Bowel Sounds, mild suprapubic tenderness with palpation. absent: Distended, Firm, - Extremities Exam Extremities Exam: Normal Inspection. absent: Pedal Edema, Tenderness - Neurological Exam Neurological Exam: Alert, Awake - Psychiatric Exam Psychiatric exam: Normal Affect, Normal Mood - Skin Skin Exam: Dry, Intact, Normal Color, Warm Assessment and Plan - Assessment and Plan (Free Text) Plan: This is a 37 year old female with PMHx HTN, Nephrolithiasis, and s/p Left renal exploration with left upper pole partial nephrectomy with ureterectomy c/o right flank pain. Found to have ESBL + UC on 10/21/17. Plan: ESBL UTI Pyelonephritis - ID Consulted - Dr. Weeks - help appreciated - Multiple UTIs in the past with ESBL in urine and wounds - Possible colonization - CT Abdomen, Pelvis - Re- demonstrated are significant atrophic changes of the right kidney with multiple scattered calcifications. Compensatory enlargement right kidney which also contains multiple small calcifications as well as small cyst. Probable hyperdense cyst lower pole right kidney however chronic scarring changes may contribute . Prominent right renal pelvis the with on what appears represent mild columnization of the proximal right ureter. No obvious ureteral calculi. Probable hyperdense cyst lower pole right kidney. . . Urologic consultation recommended if not already performed. No evidence of right-sided hydronephrosis or ureteral calculi seen. . Mild bladder wall thickening in part due to incomplete distention however correlation with urinalysis recommended. In situ Copper-T IUD. - UC 10/21/17- ESBL + Management - NS @ 100cc/hr - were DC since patient is tolerating PO and adequately hydrating - Meropenem Q8H started 11/04/17, Florastor 250mg PO Q12 - Pyridium 100mg PO TIDPC - Repeat UC (11/04)- no growth up to date - Blood culture (11/04)- no growth up to date Hx Left Upper Pole Partial Nephrectomy with Ureterectomy Hx Left Atropic Kidney - Nephrology consulted - Dr. Lala - help appreciated - Urology consulted - Dr. Ivon Reyna - Renal and bladder US - renal hyperdense cyst - will need repeat ultrasound in 3-6 months - Renal differential study to access renal function of left kidney- poorly functioning left kidney consistent with the atrophic left kidney seen on recent CT; unremarkable profusion and function of right kidney. Right Renal Cyst: - CT abdomen and pelvis with/ without IV contrast: 1.2cm likely soft tissue lesion at lower pole right kidney-indeterminate in evaluation; no significant lymphadenopathy including retroperitoneum; markedly atrophic left kidney; IUD in situ. Hx of nephrolithiasis - Abdominal xray: 2.5mm likely intrarenal calculus lower in the right kidney. Hx HTN - Restarted Cozaar 100mg PO daily Prophylaxis - GI: protonix - DVT: SCDs, lovenox Disposition: WILL CONTINUE WITH MEROPENEM Q8H until 11/12/17 - WILL BE DISCHARGED - NO NEED FOR PICC LINE - will complete course during hospital stay. <Alisa Hayes V - Last Filed: 11/10/17 10:10> Objective - Vital Signs/Intake and Output Vital Signs (last 24 hours): Temp Pulse Resp BP Pulse Ox 98.2 F 76 20 112/74 98 11/09/17 23:45 11/09/17 23:45 11/09/17 23:45 11/09/17 23:45 11/09/17 23:45 Intake and Output: 05/27/18 05/27/18 06:59 18:59 Intake Total 400 Balance 400 - Medications Medications: Current Medications Acetaminophen (Tylenol 325mg Tab) 650 mg PO Q6 PRN PRN Reason: Fever >100.4 F Last Admin: 11/07/17 11:15 Dose: 650 mg Al Hydrox/Mg Hydrox/Simethicone (Maalox 30 Ml) 30 ml PO TID PRN PRN Reason: Indigestion / Heartburn Benzocaine/Menthol (Cepacol Sore Throat) 1 andie MT QID [facility] Last Admin: 11/10/17 10:01 Dose: 1 andie Enoxaparin Sodium (Lovenox) 40 mg SC DAILY [facility] Last Admin: 11/10/17 09:58 Dose: 40 mg Meropenem 1 gm/ Sodium (Chloride) 100 mls @ 100 mls/hr IVPB Q8 LETY PRN Reason: Protocol Last Admin: 11/10/17 05:25 Dose: 100 mls/hr Sodium Chloride (Sodium Chloride 0.9%) 1,000 mls @ 75 mls/hr IV .[id number] [facility] Last Admin: 11/09/17 22:10 Dose: Not Given Losartan Potassium (Cozaar) 100 mg PO DAILY [facility] Last Admin: 11/10/17 09:57 Dose: 100 mg Morphine Sulfate (Morphine) 1 mg IVP Q6 PRN PRN Reason: Pain, severe (8-10) Last Admin: 11/09/17 14:27 Dose: 1 mg Pantoprazole Sodium (Protonix Ec Tab) 40 mg PO DAILY [facility] Last Admin: 11/10/17 09:57 Dose: 40 mg Phenazopyridine HCl (Pyridium) 100 mg PO TIDPC [facility] Last Admin: 11/10/17 09:59 Dose: 100 mg Saccharomyces Boulardii (Florastor) 250 mg PO Q12 [facility] Last Admin: 11/10/17 09:57 Dose: 250 mg Simethicone (Mylicon Liq) 40 mg PO QID [facility] Last Admin: 11/09/17 22:11 Dose: 40 mg - Labs Labs: 11/10/17 07:47 11/10/17 07:47 Attending/Attestation - Attestation I have personally seen and examined this patient.: Yes I have fully participated in the care of the patient.: Yes I have reviewed all pertinent clinical information, including history, physical exam and plan: Yes Notes (Text): Patient seen, examined and case discussed with day-time resident. Patient reports she feeling better. She has mild left lower quadrant pain. Denies other complaints. Will continue IV fluids and IV antibiotics. Patient is for discharge tomorrow following completion of IV antibiotics. Patient should be provided copies of her imaging completed in the hospital for follow-up with Dr. Ro Reyna given left atrophic kidney status and renal cyst. Assessment/Plan 1) ESBL+ Pyleonephritis-->current * On contact isolation * Refractory to PO antibiotics * Urine culture (10/21/17): +ESBL * Urine culture (11/04/17): No growth * ID Consulted - Dr. Weeks - help appreciated * Patient has history of multiple UTIs in the past with ESBL in urine and prior log marker wounds * CT Abdomen, Pelvis w/p PO or IV contrast (11/04/17) - Re- demonstrated are significant atrophic changes of the right kidney with multiple scattered calcifications. Compensatory enlargement right kidney which also contains multiple small calcifications as well as small cyst. Probable hyperdense cyst lower pole right kidney however chronic scarring changes may contribute . Prominent right renal pelvis the with on what appears represent mild columnization of the proximal right ureter. No obvious ureteral calculi. Probable hyperdense cyst lower pole right kidney. Urologic consultation recommended if not already performed. No evidence of right-sided hydronephrosis or ureteral calculi seen. Mild bladder wall thickening in part due to incomplete distention however correlation with urinalysis recommended. In situ Copper-T IUD. * Nephrology (Dr. lala) on board-->help appreciated * Urology (Dr. 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 Lala - help appreciated * Urology consulted - Dr. Ivon Reyna * Recommended Antibiotic Rx, Renal scan, differential renoggram, abdominal xray * Abdominal Xray (11/08/17): 2.5mm likely intrarenal calculus reiterated but lower in the right kidney than previously shown. No interval new radiodense urolithiasis in the abdomen. Pelvic IUD again evident. Nonobstructive bowel gas. * Renal Nuclear scan (11/08/17): poorly functioning left kidney consistent with the atrophic left kidney seen on recent CT. Unremarkable profusion and function right kidney * CT abdomen/pelvis PO and IV contrast (11/09/17): 1.2 cm likely soft tissue lesion at the lower pole right kidney is indeterminate in evaluation. Follow-up urology recommended. No significant lymphadenopahty includring retroperitoneum. Markedly atrophic left kidney. Intrauterine device in situ. * Patient will need to follow-up with urology with copies of completed imaging during hospitalization given status of left kidney. * Renal and bladder US (11/05/17) : bilateral nonsobtructing renal calculi, mild right pleviectasis, right renal cyst, atrophic left kidney 3) Renal Cyst-->chronic * Renal and bladder US (11/05/17) : bilateral nonsobtructing renal calculi, mild right pleviectasis, right renal cyst, atrophic left kidney * Will need repeat Renal US to monitor in 3-6 months 4) History of Hypertension-->chronic * Restarted Cozaar 100mg PO daily 5) Chest Pain-->Resolved * Chest xray (11/07/17): no focal infiltrate or effusion * EKG: NSR Troponin: negative * Suspecting secondary to gerd. Patient reports burning sensation over the chest. * Start Maalox 30ml PO TID PRN indigestion/heartburn * Simethicone 40mg PO qid 6) Prophylaxis * GI PPx: protonix 40mg PO daily * DVT PPx: SCDs, lovenox 40mg subqdaily * NS 75cc/hr Disposition: Will continue with Meropenem until 11/11/17 to complete at least 7 days of IV abx. No PICC line at this time
[2017-11-10] MEDS: Meropenem 1 GM in Sodium Chloride 0.9% 100 ML IVPB SCH ×3 (05:25→21:45)
[2017-11-10 08:15] LABS: BASO # 0.1 K/uL (0.0-0.2); BASO % 0.7 % (0.0-2.0); EOS # 0.3 K/uL (0.0-0.7); EOS % 3.3 % (0.0-4.0); HEMOGLOBIN 13.1 g/dL (11.0-16.0); LYMPH # 2.4 K/uL (1.0-4.3); LYMPH % 27.2 % (20.0-40.0); MEAN CELL VOLUME 90.7 fL (81.0-99.0); MEAN CORPUSCULAR HEMOGLOBIN 32.6 pg (27.0-31.0); MEAN CORPUSCULAR HGB CONC 35.9 g/dL (33.0-37.0); MEAN PLATELET VOLUME 8.6 fL (7.2-11.7); MONO # 0.5 K/uL (0.0-0.8); MONO % 5.8 % (0.0-10.0); NEUT # 5.5 K/uL (1.8-7.0); RBC 4.01 Mil/uL (3.80-5.20); WHITE BLOOD COUNT 8.7 K/uL (4.8-10.8)
[2017-11-10 08:26] LABS: ALB/GLOB RATIO 1.1 (1.0-2.1); ALT/SGPT 54 U/L (9-52); AST/SGOT 32 U/L (14-36); BLOOD UREA NITROGEN 15 mg/dL (7-17); CALCIUM 9.3 mg/dl (8.6-10.4); GFR AFRICAN-AMERICAN > 60; GFR NON-AFRICAN AMERICAN > 60
[2017-11-10] MEDS: Saccharomyces Boulardi 250 mg Cap PO SCH ×2 (09:57→21:46)
[2017-11-10] MEDS: Pantoprazole 40 mg EC Tab PO SCH (09:57)
[2017-11-10] MEDS: Enoxaparin 40 mg Syringe SC SCH (09:58)
[2017-11-10] MEDS: Benzocaine/Menthol (Cepacol) Lozenge MT SCH ×4 (10:01→21:52)
[2017-11-10] MEDS: Aluminum Hydroxide/Magnesium Hydroxide Susp (30 mL) PO PRN (14:43)
[2017-11-10] MEDS: Simethicone 40 mg/0.6 ml Liquid (30 ml) PO SCH ×4 (14:46→21:46)
[2017-11-10] MEDS: Sodium Chloride 0.9% 1,000 ML IV SCH (14:48)
[2017-11-11] MEDS: Sodium Chloride 0.9% 1,000 ML IV SCH (01:47)
--- NOTE | 2017-11-11 03:05 | CP.PCM.PN ---
<Johann Juarez - Last Filed: 11/11/17 03:06> Subjective - Date & Time of Evaluation Date of Evaluation: 11/11/17 Time of Evaluation: 03:00 - Subjective Subjective: Progress note. Patient seen and examined at bedside. No acute distress. Patient was sleeping comfortably in bed. Patient states she has intermittent suprapubic pain/ burning. Patient denies hematuria, fevers, headaches, nausea, vomiting, chest pain, dyspnea, abdominal pain. No acute events overnight. Objective - Vital Signs/Intake and Output Vital Signs (last 24 hours): Temp Pulse Resp BP Pulse Ox 97.8 F 63 20 111/72 97 11/11/17 00:00 11/11/17 00:00 11/11/17 00:00 11/11/17 00:00 11/11/17 00:00 Intake and Output: 11/10/17 11/11/17 18:59 06:59 Intake Total 500 Balance 500 - Medications Medications: Current Medications Acetaminophen (Tylenol 325mg Tab) 650 mg PO Q6 PRN PRN Reason: Fever >100.4 F Last Admin: 11/07/17 11:15 Dose: 650 mg Al Hydrox/Mg Hydrox/Simethicone (Maalox 30 Ml) 30 ml PO TID PRN PRN Reason: Indigestion / Heartburn Last Admin: 11/10/17 14:43 Dose: 30 ml Benzocaine/Menthol (Cepacol Sore Throat) 1 andie MT QID [facility] Last Admin: 11/10/17 21:52 Dose: 1 andie Enoxaparin Sodium (Lovenox) 40 mg SC DAILY [facility] Last Admin: 11/10/17 09:58 Dose: 40 mg Meropenem 1 gm/ Sodium (Chloride) 100 mls @ 100 mls/hr IVPB Q8 LETY PRN Reason: Protocol Last Admin: 11/10/17 21:45 Dose: 100 mls/hr Sodium Chloride (Sodium Chloride 0.9%) 1,000 mls @ 75 mls/hr IV .[id number] [facility] Last Admin: 11/11/17 01:47 Dose: 75 mls/hr Losartan Potassium (Cozaar) 100 mg PO DAILY [facility] Last Admin: 11/10/17 09:57 Dose: 100 mg Morphine Sulfate (Morphine) 1 mg IVP Q6 PRN PRN Reason: Pain, severe (8-10) Last Admin: 11/09/17 14:27 Dose: 1 mg Pantoprazole Sodium (Protonix Ec Tab) 40 mg PO DAILY [facility] Last Admin: 11/10/17 09:57 Dose: 40 mg Phenazopyridine HCl (Pyridium) 100 mg PO TIDPC [facility] Last Admin: 11/10/17 17:23 Dose: 100 mg Saccharomyces Boulardii (Florastor) 250 mg PO Q12 [facility] Last Admin: 11/10/17 21:46 Dose: 250 mg Simethicone (Mylicon Liq) 40 mg PO QID [facility] Last Admin: 11/10/17 21:46 Dose: 40 mg - Labs Labs: 11/10/17 07:47 11/10/17 07:47 - Constitutional Appears: Non-toxic, No Acute Distress - Head Exam Head Exam: ATRAUMATIC, NORMAL INSPECTION, NORMOCEPHALIC - Eye Exam Eye Exam: EOMI - ENT Exam ENT Exam: Mucous Membranes Moist - Neck Exam Neck Exam: Full ROM, Normal Inspection - Respiratory Exam Respiratory Exam: NORMAL BREATHING PATTERN. absent: Respiratory Distress - Cardiovascular Exam Cardiovascular Exam: REGULAR RHYTHM, +S1, +S2 - GI/Abdominal Exam GI & Abdominal Exam: Soft, Normal Bowel Sounds. absent: Tenderness - Extremities Exam Extremities Exam: Full ROM, Normal Inspection - Back Exam Back Exam: NORMAL INSPECTION - Neurological Exam Neurological Exam: Alert, Awake, Oriented x3 - Psychiatric Exam Psychiatric exam: Normal Affect, Normal Mood - Skin Skin Exam: Dry, Intact, Normal Color, Warm Assessment and Plan - Assessment and Plan (Free Text) Assessment: This is a 37 year old female with past medical hx of HTN, Nephrolithiasis, and s/p left renal exploration with left upper pole partial nephrectomy with ureterectomy presenting to hospital with right flank pain. Found to have ESBL + urine culture on 10/21/17. 1. ESBL UTI vs. Pyelonephritis - ID Consulted - Dr. Weeks - rosalinda appreciated - Multiple UTIs in the past with ESBL in urine and wounds - Possible colonization - CT Abdomen, Pelvis - Re- demonstrated are significant atrophic changes of the right kidney with multiple scattered calcifications. Compensatory enlargement right kidney which also contains multiple small calcifications as well as small cyst. Probable hyperdense cyst lower pole right kidney however chronic scarring changes may contribute . Prominent right renal pelvis the with on what appears represent mild columnization of the proximal right ureter. No obvious ureteral calculi. Probable hyperdense cyst lower pole right kidney. . . Urologic consultation recommended if not already performed. No evidence of right-sided hydronephrosis or ureteral calculi seen. . Mild bladder wall thickening in part due to incomplete distention however correlation with urinalysis recommended. In situ Copper-T IUD. - Urine culture 10/21/17- ESBL + - Meropenem Q8H started 11/04/17 -Florastor 250mg PO Q12 hrs - Pyridium 100 mg PO TIDPC - Repeat urine culture (11/04)- no growth to date - Blood culture (11/04)- no growth to date 2. Hx Left Upper Pole Partial Nephrectomy with Ureterectomy and Hx Left Atropic Kidney - Nephrology consulted - Dr. Lala - help appreciated - Urology consulted - Dr. Ivon Reyna - Renal and bladder US - renal hyperdense cyst - will need repeat ultrasound in 3-6 months - Renal differential study to access renal function of left kidney- poorly functioning left kidney consistent with the atrophic left kidney seen on recent CT; unremarkable profusion and function of right kidney. 3. Right Renal Cyst: - CT abdomen and pelvis with/ without IV contrast: 1.2cm likely soft tissue lesion at lower pole right kidney-indeterminate in evaluation; no significant lymphadenopathy including retroperitoneum; markedly atrophic left kidney; IUD in situ. 4. Hx of nephrolithiasis - Abdominal xray: 2.5mm likely intrarenal calculus lower in the right kidney. 5. Hx HTN - continue losartan 100 mg po daily 6. GI/DVT Prophylaxis - GI: protonix - DVT: SCDs, lovenox Disposition: no need for picc line, meropenem until 11/12/2017 <Eliud Gandhi - Last Filed: 11/11/17 20:05> Objective - Vital Signs/Intake and Output Vital Signs (last 24 hours): Temp Pulse Resp BP Pulse Ox 98.2 F 70 20 112/77 98 11/11/17 16:00 11/11/17 16:00 11/11/17 16:00 11/11/17 16:00 11/11/17 16:00 - Medications Medications: Current Medications Acetaminophen (Tylenol 325mg Tab) 650 mg PO Q6 PRN PRN Reason: Fever >100.4 F Last Admin: 11/07/17 11:15 Dose: 650 mg Al Hydrox/Mg Hydrox/Simethicone (Maalox 30 Ml) 30 ml PO TID PRN PRN Reason: Indigestion / Heartburn Last Admin: 11/11/17 10:23 Dose: 30 ml Benzocaine/Menthol (Cepacol Sore Throat) 1 andie MT QID [facility] Last Admin: 11/11/17 17:42 Dose: 1 andie Enoxaparin Sodium (Lovenox) 40 mg SC DAILY [facility] Last Admin: 11/11/17 10:20 Dose: 40 mg Meropenem 1 gm/ Sodium (Chloride) 100 mls @ 100 mls/hr IVPB Q8 LETY PRN Reason: Protocol Last Admin: 11/11/17 14:03 Dose: 100 mls/hr Losartan Potassium (Cozaar) 100 mg PO DAILY [facility] Last Admin: 11/11/17 10:25 Dose: 100 mg Pantoprazole Sodium (Protonix Ec Tab) 40 mg PO DAILY [facility] Last Admin: 11/11/17 10:20 Dose: 40 mg Phenazopyridine HCl (Pyridium) 100 mg PO TIDPC [facility] Last Admin: 11/11/17 17:24 Dose: 100 mg Saccharomyces Boulardii (Florastor) 250 mg PO Q12 [facility] Last Admin: 11/11/17 10:20 Dose: 250 mg Simethicone (Mylicon Liq) 40 mg PO QID [facility] Last Admin: 11/11/17 17:23 Dose: 40 mg - Labs Labs: 11/11/17 07:13 11/11/17 07:13 Attending/Attestation - Attestation I have personally seen and examined this patient.: Yes I have fully participated in the care of the patient.: Yes I have reviewed all pertinent clinical information, including history, physical exam and plan: Yes Notes (Text): 11/11/17 20:01 Patient was seen and examined at 12: 15. Also on ROS there were NO complaints Also on Exam: NO CVA tenderness upon palpation On 11/12/[address] Abdomen/Pelvis 11/09/17 (1.2 cm soft tissue lesion at the lower pole right kidney is indeterminate) to give to patient. She will need to follow up with Urologist Dr. Ivon Reyna as an outpatient concerning this issue. She will finish her Merapenem 1 gm IV Q8H tonight and will discharge patient morning 11/12/17. Eliud Gandhi D.O.
--- NOTE | 2017-11-11 03:06 | CON ---
DATE: 11/08/2017 UROLOGY CONSULTATION Urology consultation is requested by Dr. Mcmahan. Urology consultation is filled by Dr. Ro Reyna. REASON FOR CONSULTATION: Urinary tract infection. HISTORY OF PRESENT ILLNESS: The patient is a 37-year-old female with recurrent urinary tract infection. The patient is in otherwise good health. The patient has history of recurrent urinary tract infection. The patient has history of urolithiasis. Mrs. 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 This renal segment also had stones. The patient underwent a robotic assisted laparoscopic left partial nephrectomy last year. The patient has had episodes of recurrent urinary tract infection. The patient had outpatient treatment for UTI. However, the infection has persisted. The patient is now admitted for further treatment. The patient reports no flank pain. No hematuria. The patient previously had fever. No shaking chills. No nausea or vomiting. The patient reports good appetite. The patient has history of previous labor and delivery. She has history of previous miscarriage. The patient reports good appetite. She has normal bowel movements. No recent weight loss. No flank pain. PHYSICAL EXAMINATION: GENERAL: The patient is a well-developed, well-nourished female, appearing her stated age. The patient is awake and alert. ABDOMEN: Soft, nontender, nondistended. No mass or organomegaly. BACK: No CVA tenderness. LABORATORY DATA: Reviewed as well. IMPRESSION: The patient is a 37-year-old female with history of recurrent urinary tract infection, history of bilateral urolithiasis. The patient now has small stones in each kidney. There was no hydronephrosis at present. There is an atrophic left kidney which is the remnant of previous partial nephrectomy. RECOMMENDATIONS AND PLAN: Monitor urinalysis and urine culture. Renal scan to evaluate differential renal function. Repeat CT scan with and without contrast to evaluate the possible hyperdense right renal cyst suggested by previous CT scan. Further therapy to follow according to the patient's clinical course as well as results of above.. Thank you for recommending the patient for urology consultation. I have discussed the findings with the medical appliance maker as well. Ro Reyna MD cc: Ronaldo Mcmahan MD
[2017-11-11] MEDS: Meropenem 1 GM in Sodium Chloride 0.9% 100 ML IVPB SCH ×3 (05:20→21:47)
[2017-11-11 07:37] LABS: BASO # 0.1 K/uL (0.0-0.2); BASO % 0.7 % (0.0-2.0); EOS # 0.3 K/uL (0.0-0.7); EOS % 2.9 % (0.0-4.0); HEMOGLOBIN 13.4 g/dL (11.0-16.0); LYMPH # 3.3 K/uL (1.0-4.3); LYMPH % 32.8 % (20.0-40.0); MEAN CELL VOLUME 90.7 fL (81.0-99.0); MEAN CORPUSCULAR HEMOGLOBIN 32.2 pg (27.0-31.0); MEAN CORPUSCULAR HGB CONC 35.5 g/dL (33.0-37.0); MEAN PLATELET VOLUME 8.5 fL (7.2-11.7); MONO # 0.5 K/uL (0.0-0.8); MONO % 4.8 % (0.0-10.0); NEUT # 5.8 K/uL (1.8-7.0); NEUT % 58.8 % (50.0-75.0); NRBC % 0.1 % (0.0-2.0); RBC 4.17 Mil/uL (3.80-5.20); RED CELL DISTRIBUTION WIDTH 13.2 % (11.5-14.5); WHITE BLOOD COUNT 9.9 K/uL (4.8-10.8)
[2017-11-11 07:50] LABS: ALB/GLOB RATIO 1.2 (1.0-2.1); ALBUMIN 4.2 g/dL (3.5-5.0); ALT/SGPT 45 U/L (9-52); AST/SGOT 31 U/L (14-36); BLOOD UREA NITROGEN 19 mg/dL (7-17); CALCIUM 9.4 mg/dl (8.6-10.4); GFR AFRICAN-AMERICAN > 60; GFR NON-AFRICAN AMERICAN > 60
[2017-11-11] MEDS: Pantoprazole 40 mg EC Tab PO SCH (10:20)
[2017-11-11] MEDS: Enoxaparin 40 mg Syringe SC SCH (10:20)
[2017-11-11] MEDS: Saccharomyces Boulardi 250 mg Cap PO SCH ×2 (10:20→21:46)
[2017-11-11] MEDS: Simethicone 40 mg/0.6 ml Liquid (30 ml) PO SCH ×4 (10:22→21:49)
[2017-11-11] MEDS: Benzocaine/Menthol (Cepacol) Lozenge MT SCH ×4 (10:23→21:46)
[2017-11-11] MEDS: Aluminum Hydroxide/Magnesium Hydroxide Susp (30 mL) PO PRN (10:23)
--- NOTE | 2017-11-11 12:41 | CP.PCM.PN ---
Subjective - Date & Time of Evaluation Date of Evaluation: 11/11/17 Time of Evaluation: 12:39 - Subjective Subjective: seen and exmained no complaints afebrile bp noted chart reviewed renal scan and ct scan noted 10 point ROS obtained negative Objective - Vital Signs/Intake and Output Vital Signs (last 24 hours): Temp Pulse Resp BP Pulse Ox 98.3 F 73 20 117/82 98 11/11/17 07:39 11/11/17 07:39 11/11/17 07:39 11/11/17 07:39 11/11/17 07:39 Intake and Output: 11/11/17 11/11/17 06:59 18:59 Intake Total 1105 Balance 1105 - Medications Medications: Current Medications Acetaminophen (Tylenol 325mg Tab) 650 mg PO Q6 PRN PRN Reason: Fever >100.4 F Last Admin: 11/07/17 11:15 Dose: 650 mg Al Hydrox/Mg Hydrox/Simethicone (Maalox 30 Ml) 30 ml PO TID PRN PRN Reason: Indigestion / Heartburn Last Admin: 11/11/17 10:23 Dose: 30 ml Benzocaine/Menthol (Cepacol Sore Throat) 1 andie MT QID ON LICENSE OF [facility] Last Admin: 11/11/17 10:23 Dose: 1 andie Enoxaparin Sodium (Lovenox) 40 mg SC DAILY ON LICENSE OF [facility] Last Admin: 11/11/17 10:20 Dose: 40 mg Meropenem 1 gm/ Sodium (Chloride) 100 mls @ 100 mls/hr IVPB Q8 LETY PRN Reason: Protocol Last Admin: 11/11/17 05:20 Dose: 100 mls/hr Losartan Potassium (Cozaar) 100 mg PO DAILY ON LICENSE OF [facility] Last Admin: 11/11/17 10:25 Dose: 100 mg Pantoprazole Sodium (Protonix Ec Tab) 40 mg PO DAILY ON LICENSE OF [facility] Last Admin: 11/11/17 10:20 Dose: 40 mg Phenazopyridine HCl (Pyridium) 100 mg PO TIDPC ON LICENSE OF [facility] Last Admin: 11/11/17 10:22 Dose: 100 mg Saccharomyces Boulardii (Florastor) 250 mg PO Q12 ON LICENSE OF [facility] Last Admin: 11/11/17 10:20 Dose: 250 mg Simethicone (Mylicon Liq) 40 mg PO QID ON LICENSE OF [facility] Last Admin: 11/11/17 10:22 Dose: 40 mg - Labs Labs: 11/11/17 07:13 11/11/17 07:13 - Constitutional Appears: Non-toxic, No Acute Distress - Head Exam Head Exam: NORMAL INSPECTION, NORMOCEPHALIC - Eye Exam Eye Exam: Normal appearance, PERRL Pupil Exam: NORMAL ACCOMODATION - ENT Exam ENT Exam: Mucous Membranes Moist, Normal Exam - Neck Exam Neck Exam: Full ROM, Normal Inspection - Respiratory Exam Respiratory Exam: Clear to Ausculation Bilateral, NORMAL BREATHING PATTERN - Cardiovascular Exam Cardiovascular Exam: REGULAR RHYTHM, RRR - GI/Abdominal Exam GI & Abdominal Exam: Distended, Soft - Extremities Exam Extremities Exam: Full ROM, Normal Inspection - Back Exam Back Exam: NORMAL INSPECTION - Neurological Exam Neurological Exam: Alert, Awake, Oriented x3 - Psychiatric Exam Psychiatric exam: Normal Affect, Normal Mood - Skin Skin Exam: Dry, Intact Assessment and Plan (1) Flank pain Status: Acute (2) Urinary tract infection due to ESBL Klebsiella Status: Acute (3) Chronic hypertension Status: Acute (4) Renal atrophy, left Status: Acute (5) Renal cyst Status: Acute - Assessment and Plan (Free Text) Assessment: stable renal function antibiotic per ID urologic evaluation, outpt. renal mass appears benign on imaging atrophic left kidney
[2017-11-12 01:58] VITALS: O2SAT 96
[2017-11-12] MEDS: Meropenem 1 GM in Sodium Chloride 0.9% 100 ML IVPB SCH (06:03)
--- NOTE | 2017-11-12 07:36 | CP.PCM.DIS ---
<Ninfa Gillis - Last Filed: 11/12/17 07:41> Provider - Provider Date of Admission: 11/04/17 13:24 Attending physician: Eliud Gandhi MD Time Spent in preparation of Discharge (in minutes): 55 Hospital Course - Lab Results Lab Results: Micro Results 11/08/17 18:00 Urine,Clean Catch Urine Culture - Final No Growth (<1,000 CFU/ML) 11/04/17 11:30 Blood Blood Culture - Final NO GROWTH AFTER 5 DAYS 11/04/17 11:30 Blood Gram Stain - Final TEST NOT PERFORMED 11/04/17 12:09 Blood Blood Culture - Final NO GROWTH AFTER 5 DAYS 11/04/17 12:09 Blood Gram Stain - Final TEST NOT PERFORMED 11/04/17 20:23 Urine,Clean Catch Urine Culture - Final No Growth (<1,000 CFU/ML) Most Recent Lab Values WBC 9.9 K/uL (4.8-10.8) 11/11/17 07:13 RBC 4.17 Mil/uL (3.80-5.20) 11/11/17 07:13 Hgb 13.4 g/dL (11.0-16.0) 11/11/17 07:13 Hct 37.8 % (34.0-47.0) 11/11/17 07:13 MCV 90.7 fL (81.0-99.0) 11/11/17 07:13 MCH 32.2 pg (27.0-31.0) H 11/11/17 07:13 MCHC 35.5 g/dL (33.0-37.0) 11/11/17 07:13 RDW 13.2 % (11.5-14.5) 11/11/17 07:13 Plt Count 304 K/uL (130-400) 11/11/17 07:13 MPV 8.5 fL (7.2-11.7) 11/11/17 07:13 Neut % (Auto) 58.8 % (50.0-75.0) 11/11/17 07:13 Lymph % (Auto) 32.8 % (20.0-40.0) 11/11/17 07:13 Bland % (Auto) 4.8 % (0.0-10.0) 11/11/17 07:13 Eos % (Auto) 2.9 % (0.0-4.0) 11/11/17 07:13 Baso % (Auto) 0.7 % (0.0-2.0) 11/11/17 07:13 Neut # (Auto) 5.8 K/uL (1.8-7.0) 11/11/17 07:13 Lymph # (Auto) 3.3 K/uL (1.0-4.3) 11/11/17 07:13 [place] # (Auto) 0.5 K/uL (0.0-0.8) 11/11/17 07:13 Eos # (Auto) 0.3 K/uL (0.0-0.7) 11/11/17 07:13 Baso # (Auto) 0.1 K/uL (0.0-0.2) 11/11/17 07:13 Sodium 141 mmol/L (132-148) 11/11/17 07:13 Potassium 4.1 mmol/L (3.6-5.2) 11/11/17 07:13 Chloride 103 mmol/L (98-107) 11/11/17 07:13 Carbon Dioxide 27 mmol/L (22-30) 11/11/17 07:13 Anion Gap 16 (10-20) 11/11/17 07:13 BUN 19 mg/dL (7-17) H 11/11/17 07:13 Creatinine 0.9 mg/dL (0.7-1.2) 11/11/17 07:13 Est GFR ( Amer) > 60 11/11/17 07:13 Est GFR (Non-Af Amer) > 60 11/11/17 07:13 Random Glucose 99 mg/dL (65-105) 11/11/17 07:13 Calcium 9.4 mg/dl (8.6-10.4) 11/11/17 07:13 Phosphorus 3.3 mg/dL (2.5-4.5) 11/08/17 06:29 Magnesium 1.7 mg/dL (1.6-2.3) 11/08/17 06:29 Total Bilirubin 0.7 mg/dL (0.2-1.3) 11/11/17 07:13 AST 31 U/L (14-36) 11/11/17 07:13 ALT 45 U/L (9-52) 11/11/17 07:13 Alkaline Phosphatase 105 U/L (38-126) 11/11/17 07:13 Total Creatine Kinase 85 U/L (30-135) 11/07/17 07:20 CK-MB (Mass) 0.28 ng/mL (0.0-3.38) 11/07/17 07:20 Troponin I < 0.0120 ng/mL (0.00-0.120) 11/07/17 07:20 Total Protein 7.7 g/dL (6.3-8.3) 11/11/17 07:13 Albumin 4.2 g/dL (3.5-5.0) 11/11/17 07:13 Globulin 3.5 gm/dL (2.2-3.9) 11/11/17 07:13 Albumin/Globulin Ratio 1.2 (1.0-2.1) 11/11/17 07:13 Lipase 85 U/L (23-300) 11/04/17 11:40 Urine Color Straw (YELLOW) 11/04/17 11:40 Urine Clarity Clear (Clear) 11/04/17 11:40 Urine pH 6.0 (5.0-8.0) 11/04/17 11:40 Ur Specific [place] 1.004 (1.003-1.030) 11/04/17 11:40 Urine Protein Negative mg/dL (NEGATIVE) 11/04/17 11:40 Urine Glucose (UA) Normal mg/dL (Normal) 11/04/17 11:40 Urine Ketones Negative mg/dL (NEGATIVE) 11/04/17 11:40 Urine Blood Negative (NEGATIVE) 11/04/17 11:40 Urine Nitrate Negative (NEGATIVE) 11/04/17 11:40 Urine Bilirubin Negative (NEGATIVE) 11/04/17 11:40 Urine Urobilinogen Normal mg/dL (0.2-1.0) 11/04/17 11:40 Ur Leukocyte Esterase Neg Wilfred/uL (Negative) 11/04/17 11:40 Ur Squamous Epith Cells 1 /hpf (0-5) 11/04/17 11:40 Urine HCG, Qual Negative (NEGATIVE) 11/08/17 11:58 Urine Opiates Screen Negative (NEGATIVE) 11/04/17 11:40 Urine Methadone Screen Negative (NEGATIVE) 11/04/17 11:40 Ur Barbiturates Screen Negative (NEGATIVE) 11/04/17 11:40 Ur Phencyclidine Scrn Negative (NEGATIVE) 11/04/17 11:40 Ur Amphetamines Screen Negative (NEGATIVE) 11/04/17 11:40 U Benzodiazepines Scrn Negative (NEGATIVE) 11/04/17 11:40 U Oth Cocaine Metabols Negative (NEGATIVE) 11/04/17 11:40 U Cannabinoids Screen Negative (NEGATIVE) 11/04/17 11:40 - Hospital Course Hospital Course: Upon Admission CC: Flank pain HPI: This is a 37 year old female with PMHx HTN, renal stones, and s/p Left renal exploration with left upper pole partial nephrectomy with ureterectomy c/o right flank pain. Patient reports that 4 weeks ago she began having fever, chills, dysuria, and nausea. She was evaluated at a clinic in [place] and was prescribed Nitrofurantoin. She reports that the medication helped a little but symptoms did not fully resolve so she was re-evaluated and prescribed ciprofloxacin. Today she states that her dysuria continues and that she is experiencing right flank pain that she describes as sharp, constant, 6-7/ 10, and worse with laying on her side. She reports that the medication she received in the ED improved her pain. The pain is mostly localized to the right flank but she also feels pain in her suprapubic region. She denies vomiting, diarrhea, hematuria, vaginal discharge, and vaginal bleeding. Patient was evaluated in ED on 10/24 for right flank pain, at that time her pain was determined to be associated with a renal stone and the patient was discharged because her pain resolved. CT scan during that visit revealed a left atrophic kidney with a right enlarged kidney with multiple cysts and an 8.6mm hyperdense lesion. PMHx- HTN, Nephrolithiasis PSHx- appendectomy (1997), cholecystectomy (2007), x3, Left renal exploration with left upper pole partial nephrectomy with ureterectomy ([address] Dos Santos). Medications- Losartan 100mg Allergies- NKDA SHx- denies tobacco, alcohol, and drug use. Patient is currently unemployed. FHx- mother is 77, father is 79, she has 4 brothers and 1 sister, patient states that all members of her family are healthy. OBGYN- Patient is . Patient reports that her first was complicated because the babys head was laying across so a was performed. Patients second was uncomplicated. Patient reports that her third was complicated by preeclampsia, was performed on 12/02/16 by the baby did not survive. Patient reports that her LMP was in June 2017. Periods typically last for 3 days with 28 day cycles. Patient had a copper IUD inserted in February 2017. Throughout Hospital Course This is a 37 year old female with past medical hx of HTN, Nephrolithiasis, and s/p left renal exploration with left upper pole partial nephrectomy with ureterectomy presenting to hospital with right flank pain. Found to have ESBL + urine culture on 10/21/17. 1. ESBL UTI vs. Pyelonephritis - ID Consulted - Dr. Weeks - recs appreciated - Multiple UTIs in the past with ESBL in urine and wounds - Possible colonization - CT Abdomen, Pelvis - Re- demonstrated are significant atrophic changes of the right kidney with multiple scattered calcifications. Compensatory enlargement right kidney which also contains multiple small calcifications as well as small cyst. Probable hyperdense cyst lower pole right kidney however chronic scarring changes may contribute . Prominent right renal pelvis the with on what appears represent mild columnization of the proximal right ureter. No obvious ureteral calculi. Probable hyperdense cyst lower pole right kidney. . . Urologic consultation recommended if not already performed. No evidence of right-sided hydronephrosis or ureteral calculi seen. . Mild bladder wall thickening in part due to incomplete distention however correlation with urinalysis recommended. In situ Copper-T IUD. - Urine culture 10/21/17- ESBL + - Meropenem Q8H started 11/04/17 -Florastor 250mg PO Q12 hrs - Pyridium 100 mg PO TIDPC - Repeat urine culture (11/04)- no growth to date - Blood culture (11/04)- no growth to date 2. Hx Left Upper Pole Partial Nephrectomy with Ureterectomy and Hx Left Atropic Kidney - Nephrology consulted - Dr. Lala - help appreciated - Urology consulted - Dr. Ivon Reyna - Renal and bladder US - renal hyperdense cyst - will need repeat ultrasound in 3-6 months - Renal differential study to access renal function of left kidney- poorly functioning left kidney consistent with the atrophic left kidney seen on recent CT; unremarkable profusion and function of right kidney. 3. Right Renal Cyst: - CT abdomen and pelvis with/ without IV contrast: 1.2cm likely soft tissue lesion at lower pole right kidney-indeterminate in evaluation; no significant lymphadenopathy including retroperitoneum; markedly atrophic left kidney; IUD in situ. 4. Hx of nephrolithiasis - Abdominal xray: 2.5mm likely intrarenal calculus lower in the right kidney. 5. Hx HTN - continue losartan 100 mg po daily Please review EMR for full record, as this is a brief summary of the patient's hospital course. Discharge Exam - Additional Findings Additional findings: - Constitutional Appears: Non-toxic, No Acute Distress - Head Exam Head Exam: ATRAUMATIC, NORMAL INSPECTION, NORMOCEPHALIC - Eye Exam Eye Exam: EOMI - ENT Exam ENT Exam: Mucous Membranes Moist - Neck Exam Neck Exam: Full ROM, Normal Inspection - Respiratory Exam Respiratory Exam: NORMAL BREATHING PATTERN. absent: Respiratory Distress - Cardiovascular Exam Cardiovascular Exam: REGULAR RHYTHM, +S1, +S2 - GI/Abdominal Exam GI & Abdominal Exam: Soft, Normal Bowel Sounds. absent: Tenderness - Extremities Exam Extremities Exam: Full ROM, Normal Inspection - Back Exam Back Exam: NORMAL INSPECTION - Neurological Exam Neurological Exam: Alert, Awake, Oriented x3 - Psychiatric Exam Psychiatric exam: Normal Affect, Normal Mood - Skin Skin Exam: Dry, Intact, Normal Color, Warm Discharge Plan - Discharge Medications Prescriptions: L. Acidophilus/L.bulgaricus [Lactobacillus Tablet] 1 each PO Q12H #80 tablet Losartan [Cozaar] 100 mg PO DAILY #30 tab - Follow Up Plan Condition: STABLE Disposition: HOME/ ROUTINE Instructions: Flank Pain (DC), Lactobacillus, Losartan, Extended-Spectrum Beta Lactamase Infection Additional Instructions: You have completed your antibiotic treatment. Please continue taking the Cozaar 100mg by mouth for your blood pressure and probiotics 1 tablet every 12 hours for total 40 days to protect your stomach from the antibiotics we were giving you for your resistant urinary tract infection. Continue to hydrate yourself daily. If you do not have a primary care doctor, please come to our [facility] clinic in the basement at [address] or [place] [address] . Please follow up with Dr. Ro Reyna to manage your renal cyst that was noted on your cat scan. Please follow up with Dr. Lala (accounts clerk) in 1-2 weeks. Please take care and be well. --- Usted fonseca completado patricia tratamiento con antibiticos. Contine tomando Cozaar 100mg por va oral para la presin arterial y probi ticos 1 tableta cada 12 horas janki un total de 40 huynh para proteger patricia est tara de los antibiticos que le administramos para patricia infeccin resistente del tracto urinario. Contina hidratndote a ti mismo todos los huynh. Si no tiene un mdico de atencin primaria, visite nuestra clnica de oscar del vecindario en el [address] [phone] o feliciano [place] [address] . Por favor, kamron un seguimiento con el Dr. Ro Reyna para controlar patricia quiste renal que se observ en patricia cat scan. Por favor, kamron un seguimiento con el Dr. Lala (nefrlogo) en 1-2 semanas. Por favor cudate y estate diony. Referrals: at [facility] [Outside] Ro Reyna MD [Staff Provider] - Ty Lala MD [Staff Provider] - <Eliud Gandhi - Last Filed: 11/12/17 18:45> Provider - Provider Date of Admission: 11/04/17 13:24 Attending physician: Eliud Gandhi MD Time Spent in preparation of Discharge (in minutes): 40 Hospital Course - Lab Results Lab Results: Micro Results 11/08/17 18:00 Urine,Clean Catch Urine Culture - Final No Growth (<1,000 CFU/ML) 11/04/17 11:30 Blood Blood Culture - Final NO GROWTH AFTER 5 DAYS 11/04/17 11:30 Blood Gram Stain - Final TEST NOT PERFORMED 11/04/17 12:09 Blood Blood Culture - Final NO GROWTH AFTER 5 DAYS 11/04/17 12:09 Blood Gram Stain - Final TEST NOT PERFORMED 11/04/17 20:23 Urine,Clean Catch Urine Culture - Final No Growth (<1,000 CFU/ML) Most Recent Lab Values WBC 9.9 K/uL (4.8-10.8) 11/11/17 07:13 RBC 4.17 Mil/uL (3.80-5.20) 11/11/17 07:13 Hgb 13.4 g/dL (11.0-16.0) 11/11/17 07:13 Hct 37.8 % (34.0-47.0) 11/11/17 07:13 MCV 90.7 fL (81.0-99.0) 11/11/17 07:13 MCH 32.2 pg (27.0-31.0) H 11/11/17 07:13 MCHC 35.5 g/dL (33.0-37.0) 11/11/17 07:13 RDW 13.2 % (11.5-14.5) 11/11/17 07:13 Plt Count 304 K/uL (130-400) 11/11/17 07:13 MPV 8.5 fL (7.2-11.7) 11/11/17 07:13 Neut % (Auto) 58.8 % (50.0-75.0) 11/11/17 07:13 Lymph % (Auto) 32.8 % (20.0-40.0) 11/11/17 07:13 [place] % (Auto) 4.8 % (0.0-10.0) 11/11/17 07:13 Eos % (Auto) 2.9 % (0.0-4.0) 11/11/17 07:13 Baso % (Auto) 0.7 % (0.0-2.0) 11/11/17 07:13 Neut # (Auto) 5.8 K/uL (1.8-7.0) 11/11/17 07:13 Lymph # (Auto) 3.3 K/uL (1.0-4.3) 11/11/17 07:13 Bland # (Auto) 0.5 K/uL (0.0-0.8) 11/11/17 07:13 Eos # (Auto) 0.3 K/uL (0.0-0.7) 11/11/17 07:13 Baso # (Auto) 0.1 K/uL (0.0-0.2) 11/11/17 07:13 Sodium 141 mmol/L (132-148) 11/11/17 07:13 Potassium 4.1 mmol/L (3.6-5.2) 11/11/17 07:13 Chloride 103 mmol/L (98-107) 11/11/17 07:13 Carbon Dioxide 27 mmol/L (22-30) 11/11/17 07:13 Anion Gap 16 (10-20) 11/11/17 07:13 BUN 19 mg/dL (7-17) H 11/11/17 07:13 Creatinine 0.9 mg/dL (0.7-1.2) 11/11/17 07:13 Est GFR ( Amer) > 60 11/11/17 07:13 Est GFR (Non-Af Amer) > 60 11/11/17 07:13 Random Glucose 99 mg/dL (65-105) 11/11/17 07:13 Calcium 9.4 mg/dl (8.6-10.4) 11/11/17 07:13 Phosphorus 3.3 mg/dL (2.5-4.5) 11/08/17 06:29 Magnesium 1.7 mg/dL (1.6-2.3) 11/08/17 06:29 Total Bilirubin 0.7 mg/dL (0.2-1.3) 11/11/17 07:13 AST 31 U/L (14-36) 11/11/17 07:13 ALT 45 U/L (9-52) 11/11/17 07:13 Alkaline Phosphatase 105 U/L (38-126) 11/11/17 07:13 Total Creatine Kinase 85 U/L (30-135) 11/07/17 07:20 CK-MB (Mass) 0.28 ng/mL (0.0-3.38) 11/07/17 07:20 Troponin I < 0.0120 ng/mL (0.00-0.120) 11/07/17 07:20 Total Protein 7.7 g/dL (6.3-8.3) 11/11/17 07:13 Albumin 4.2 g/dL (3.5-5.0) 11/11/17 07:13 Globulin 3.5 gm/dL (2.2-3.9) 11/11/17 07:13 Albumin/Globulin Ratio 1.2 (1.0-2.1) 11/11/17 07:13 Lipase 85 U/L (23-300) 11/04/17 11:40 Urine Color Straw (YELLOW) 11/04/17 11:40 Urine Clarity Clear (Clear) 11/04/17 11:40 Urine pH 6.0 (5.0-8.0) 11/04/17 11:40 Ur Specific [place] 1.004 (1.003-1.030) 11/04/17 11:40 Urine Protein Negative mg/dL (NEGATIVE) 11/04/17 11:40 Urine Glucose (UA) Normal mg/dL (Normal) 11/04/17 11:40 Urine Ketones Negative mg/dL (NEGATIVE) 11/04/17 11:40 Urine Blood Negative (NEGATIVE) 11/04/17 11:40 Urine Nitrate Negative (NEGATIVE) 11/04/17 11:40 Urine Bilirubin Negative (NEGATIVE) 11/04/17 11:40 Urine Urobilinogen Normal mg/dL (0.2-1.0) 11/04/17 11:40 Ur Leukocyte Esterase Neg Wilfred/uL (Negative) 11/04/17 11:40 Ur Squamous Epith Cells 1 /hpf (0-5) 11/04/17 11:40 Urine HCG, Qual Negative (NEGATIVE) 11/08/17 11:58 Urine Opiates Screen Negative (NEGATIVE) 11/04/17 11:40 Urine Methadone Screen Negative (NEGATIVE) 11/04/17 11:40 Ur Barbiturates Screen Negative (NEGATIVE) 11/04/17 11:40 Ur Phencyclidine Scrn Negative (NEGATIVE) 11/04/17 11:40 Ur Amphetamines Screen Negative (NEGATIVE) 11/04/17 11:40 U Benzodiazepines Scrn Negative (NEGATIVE) 11/04/17 11:40 U Oth Cocaine Metabols Negative (NEGATIVE) 11/04/17 11:40 U Cannabinoids Screen Negative (NEGATIVE) 11/04/17 11:40 Attending/Attestation - Attestation I have personally seen and examined this patient.: Yes I have fully participated in the care of the patient.: Yes I have reviewed all pertinent clinical information, including history, physical exam and plan: Yes Notes (Text): 11/12/17 18:44 Patient was also provided with a CD Copy of her CT Abdomen/Pelvis 11/09/17 to take with her to her appointment with Dr. Ivon Reyna. Eliud Gandhi D.O.
[2017-11-12] MEDS: Benzocaine/Menthol (Cepacol) Lozenge MT SCH (09:24)
[2017-11-12] MEDS: Simethicone 40 mg/0.6 ml Liquid (30 ml) PO SCH (09:24)
[2017-11-12] MEDS: Pantoprazole 40 mg EC Tab PO SCH (09:27)
[2017-11-12] MEDS: Enoxaparin 40 mg Syringe SC SCH (09:28)
[2017-11-12] MEDS: Saccharomyces Boulardi 250 mg Cap PO SCH (10:03)
--- NOTE | 2017-11-12 14:05 | CP.PCM.PN ---
Subjective - Date & Time of Evaluation Date of Evaluation: 11/12/17 Time of Evaluation: 10:00 - Subjective Subjective: seen and examined this am feels well no complaints Objective - Vital Signs/Intake and Output Vital Signs (last 24 hours): Temp Pulse Resp BP Pulse Ox 98.1 F 74 20 100/65 96 11/12/17 00:00 11/12/17 00:00 11/12/17 00:00 11/12/17 00:00 11/12/17 00:00 Intake and Output: 11/12/17 11/12/17 06:59 18:59 Intake Total 350 Balance 350 - Labs Labs: 11/11/17 07:13 11/11/17 07:13 - Constitutional Appears: Non-toxic, No Acute Distress - Head Exam Head Exam: NORMAL INSPECTION, NORMOCEPHALIC - Eye Exam Eye Exam: Normal appearance Pupil Exam: PERRL - ENT Exam ENT Exam: Mucous Membranes Moist, Normal Exam - Neck Exam Neck Exam: Normal Inspection - Respiratory Exam Respiratory Exam: Clear to Ausculation Bilateral, NORMAL BREATHING PATTERN - Cardiovascular Exam Cardiovascular Exam: REGULAR RHYTHM, RRR - GI/Abdominal Exam GI & Abdominal Exam: Distended, Soft, Normal Bowel Sounds - Extremities Exam Extremities Exam: Full ROM, Normal Inspection - Neurological Exam Neurological Exam: Alert, Awake, Oriented x3 - Psychiatric Exam Psychiatric exam: Normal Affect, Normal Mood - Skin Skin Exam: Dry, Intact Assessment and Plan (1) Flank pain Status: Acute (2) Urinary tract infection due to ESBL Klebsiella Status: Acute (3) Chronic hypertension Status: Acute (4) Renal atrophy, left Status: Acute (5) Renal cyst Status: Acute - Assessment and Plan (Free Text) Assessment: stable renal function f/u outpt
[2017-11-12 14:48] VITALS: BP 126/73; PULSE 83; RESP 18; TEMP 98.4
== END 2017-11-12 13:55 | disposition home or self-care (01) | DRG 320 ==
LOC: C.ER 10:20 → C.9E 13:24 → C.3T 14:19
PROVIDERS: ADMIT Internal Medicine; ATTEND Family Medicine
DX: N12 Tubulo-interstitial nephritis, not specified as acute or chronic (principal); B96.1 Klebsiella pneumoniae [K. pneumoniae] as the cause of diseases classified elsewhere; I12.9 Hypertensive chronic kidney disease with stage 1 through stage 4 chronic kidney disease, or unspecified chronic kidney disease; N18.9 Chronic kidney disease, unspecified; N20.0 Calculus of kidney; N28.1 Cyst of kidney, acquired; K21.9 Gastro-esophageal reflux disease without esophagitis; N28.89 Other specified disorders of kidney and ureter; N30.90 Cystitis, unspecified without hematuria; Z87.442 Personal history of urinary calculi

== ENCOUNTER 2018-07-10 07:12 | Outpatient (CLI) | payer OTHER | END 2018-07-10 07:13 | disposition home or self-care (01) | LOC: C.USIC 07:13 | DX: R10.2 Pelvic and perineal pain (principal) ==

== ENCOUNTER 2018-07-23 10:01 | Outpatient (CLI) | payer OTHER | END 2018-07-23 10:02 | disposition home or self-care (01) | LOC: C.LAB 10:01 | DX: N18.3 Chronic kidney disease, stage 3 (moderate) (principal) ==

== ENCOUNTER 2018-08-28 09:20 | Outpatient (CLI) | payer OTHER | END 2018-08-28 09:21 | disposition home or self-care (01) | LOC: C.USIC 09:20 | DX: N20.9 Urinary calculus, unspecified (principal) ==

== ENCOUNTER → 2018-08-30 | Outpatient (CLI) | payer OTHER | LOC: C.MAMMO 13:25 | DX: Z12.31 Encounter for screening mammogram for malignant neoplasm of breast (principal) ==